=== PATIENT | male | born 1935 | race Caucasian/White ===

== ENCOUNTER 2020-08-05 14:06 | Inpatient (IN) | payer MEDICARE, BC ==
[2020-08-05] MEDS ORDERED: Carvedilol 3.125 MG Tab PO ONE ×2 (14:37→15:44)
--- NOTE | 2020-08-05 14:43 | EDM.PDOC ---
ED HPI GENERAL MEDICAL PROBLEM - General Chief Complaint: Chest Pain Stated Complaint: MEDICAL Time Seen by Provider: 08/05/20 14:25 Source of Information: Reports: Patient, EMS. Denies: Old Records History Limitations: Reports: Other (no old records) - History of Present Illness INITIAL COMMENTS - FREE TEXT/NARRATIVE: 84 yo male with a recent hx of chest pain referred from [facility] to [facility] for 3 vessel CAD. It was decided because of his age to manage him medically. His family doctor is in [place]. He recently ran out of some of the meds that were started in [place] and he can't get an appt for several days yet and his primary won't refill his meds until he is seen. One of the meds he is out of is carvedilol. Since running out of this he has had to use some of his NTG. Sx's include MICHEL, orthopnea, and insomnia from the SOB. These sx's started last evening and are not any worse today, but he decided to use an ambulance to come to [facility] today where he has never been before. Has used some NTG since running out of his Carvedilol. Onset: Gradual Onset Date: 08/04/20 Onset Time: 21:00 Duration: Hour(s):, Constant Location: Reports: Chest Quality: Reports: Other (no pain) Severity: Mild (SOB) Improves with: Reports: Other (rest and sitting up) Worsens with: Reports: Movement (or lying flat) Context: Reports: Other (see HPI) Associated Symptoms: Reports: Shortness of Breath. Denies: Diaphoresis, Nausea/Vomiting Treatments SCENIC DESIGNER: Reports: Other (see below) (none) - Related Data Allergies Allergy/AdvReac Type Severity Reaction Status Date / Time No Known Allergies Allergy Verified 08/05/20 14:21 Home Meds: Home Meds Aspirin 81 mg PO DAILY 08/05/20 [History] Bimatoprost [Lumigan 0.01% Ophth Soln] 1 drop EYEBOTH DAILY 08/05/20 [History] Capsaicin [Zostrix 0.025% Crm] 1 dose TOP ASDIRECTED 08/05/20 [History] Furosemide [Lasix] 20 mg PO DAILY 08/05/20 [History] Hydrocodone/Acetaminophen [Hydrocodon-Acetaminophen 5-325] 1 tab PO ASDIRECTED 08/05/20 [History] Isosorbide Mononitrate [Isosorbide Mononitrate ER] 30 mg PO DAILY 08/05/20 [History] Mirtazapine 15 mg PO BEDTIME 08/05/20 [History] Nitroglycerin 0.4 mg SL ASDIRECTED 08/05/20 [History] Omeprazole 40 mg PO DAILY 08/05/20 [History] Ondansetron [Zofran ODT] 4 mg PO ASDIRECTED 08/05/20 [History] Sennosides/Docusate Sodium [Senna-Docusate Sodium Tablet] 2 tab PO DAILY 08/05/20 [History] Tamsulosin [Flomax] 0.4 mg PO DAILY 08/05/20 [History] Timolol Maleate/PF [Timolol Maleate 0.5% Eye Drop] 1 dose EYEBOTH BEDTIME 08/05/20 [History] atorvaSTATin Calcium [Atorvastatin Calcium] 80 mg PO BEDTIME 08/05/20 [History] carvediloL [Carvedilol] 6.25 mg PO BID 08/05/20 [History] Social & Family History - Tobacco Use Tobacco Use Status *Q: Light Tobacco User Years of Tobacco use: 72 Packs/Tins Daily: 0.5 - Caffeine Use Caffeine Use: Reports: Coffee - Recreational Drug Use Recreational Drug Use: No ED ROS GENERAL - Review of Systems Review Of Systems: See Below Constitutional: Reports: No Symptoms. Denies: Fever, Chills, Diaphoresis HEENT: Reports: No Symptoms Respiratory: Reports: Shortness of Breath. Denies: Wheezing, Pleuritic Chest Pain, Cough, Sputum, Hemoptysis Cardiovascular: Reports: No Symptoms Endocrine: Reports: No Symptoms GI/Abdominal: Reports: No Symptoms : Reports: No Symptoms Musculoskeletal: Reports: No Symptoms Skin: Reports: No Symptoms Neurological: Reports: No Symptoms ED EXAM, GENERAL - Physical Exam Exam: See Below Exam Limited By: No Limitations General Appearance: Alert, WD/WN, No Apparent Distress Eye Exam: Bilateral Eye: Normal Inspection Ears: Normal External Exam, Normal Canal, Hearing Grossly Normal Ear Exam: Bilateral Ear: Auricle Normal, Canal Normal Nose: Normal Inspection, No Blood Throat/Mouth: Normal Inspection, Normal Lips, Normal Oropharynx, Normal Voice, No Airway Compromise Head: Atraumatic, Normocephalic Neck: Normal Inspection Respiratory/Chest: No Respiratory Distress, Lungs Clear, Normal Breath Sounds, No Accessory Muscle Use Cardiovascular: Regular Rate, Rhythm, No Edema, Tachycardia GI/Abdominal: Normal Bowel Sounds, Soft, Non-Tender, No Distention Back Exam: Normal Inspection. No: CVA Tenderness (R), CVA Tenderness (L) Extremities: Normal Inspection, Normal Range of Motion, Non-Tender, No Pedal Edema Neurological: Alert, Oriented, CN II-XII Intact, Normal Cognition, No Motor/Sensory Deficits Psychiatric: Normal Affect, Normal Mood Skin Exam: Warm, Dry, Intact, Normal Color, No Rash, Other (1.1 cm in diameter basal cell CA on R forehead. ) #1 Interpretation EKG Date: 08/05/20 Time: 14:35 Rhythm: NSR Rate (Beats/Min): [address]: Normal P-Wave: Present QRS: Normal ST-T: Normal QT: Normal Comparison: NA - No Prior EKG (PAC's present. LVH present. 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 Goode and Pancho @ 1600h Last Recorded V/S: Last Vital Signs Temp 36.6 C 08/05/20 14:24 Pulse 101 H 08/05/20 15:51 Resp 22 H 08/05/20 14:24 BP 151/99 H 08/05/20 15:51 Pulse Ox 96 08/05/20 14:24 - Orders/Labs/Meds Orders: Active Orders 24 hr Category Date Time Status Cardiac Monitoring [RC] .As Directed Care 08/05/20 14:16 Active EKG Documentation Completion [RC] ASDIRECTED Care 08/05/20 14:16 Active Chest 1V Frontal [CR] Stat Exams 08/05/20 15:41 Ordered Furosemide [Lasix] Med 08/05/20 16:06 Once 40 mg IVPUSH ONETIME ONE EKG 12 Lead [EK] Routine Ther 08/05/20 14:15 Ordered Medication Orders Furosemide (Lasix) 40 mg IVPUSH ONETIME ONE Stop: 08/05/20 16:07 Labs: Laboratory Tests 08/05/20 08/05/20 08/05/20 Range/Units 14:56 14:56 15:40 WBC 7.2 (4.5-11.0) K/uL RBC 3.77 L (4.30-5.90) M/uL Hgb 12.1 (12.0-15.0) g/dL Hct 38.0 L (40.0-54.0) % MCV 101 H (80-98) fL MCH 32 H (27-31) pg MCHC 32 (32-36) % Plt Count 183 (150-400) K/uL Sodium 144 (140-148) mmol/L Potassium 4.1 (3.6-5.2) mmol/L Chloride 108 (100-108) mmol/L Carbon Dioxide 23 (21-32) mmol/L Anion Gap 13.2 (5.0-14.0) mmol/L BUN 32 H (7-18) mg/dL Creatinine 1.1 (0.8-1.3) mg/dL Est Cr Clr Drug Dosing 43.47 mL/min Estimated GFR (MDRD) > 60 (>60) Glucose 104 (74-106) mg/dL Calcium 9.2 (8.5-10.1) mg/dL Troponin I 1.497 H* (0.000-0.056) ng/mL NT-Pro-B Natriuret Pep 88868 H (5-450) pg/mL Meds: Medications Generic Name Dose Route Start Last Admin Trade Name Freq PRN Reason Stop Dose Admin Furosemide 40 mg 08/05/20 16:06 Lasix IVPUSH 08/05/20 16:07 ONETIME ONE Discontinued Medications Generic Name Dose Route Start Last Admin Trade Name Freq PRN Reason Stop Dose Admin Aspirin 243 mg 08/05/20 15:40 08/05/20 15:51 Aspirin PO 08/05/20 15:41 243 mg ONETIME ONE Administration Carvedilol 6.25 mg 08/05/20 14:37 08/05/20 14:53 Coreg PO 08/05/20 14:38 6.25 mg ONETIME ONE Administration Carvedilol 6.25 mg 08/05/20 15:44 08/05/20 15:51 Coreg PO 08/05/20 15:45 6.25 mg ONETIME ONE Administration Heparin Sodium (Porcine) 4,000 units 08/05/20 15:42 08/05/20 15:54 Heparin Sodium IVPUSH 08/05/20 15:43 4,000 units ONETIME ONE Administration Ticagrelor 180 mg 08/05/20 15:43 08/05/20 15:51 Brilinta PO 08/05/20 15:44 180 mg ONETIME ONE Administration - Radiology Interpretation Free Text/Narrative:: CXR- Departure - Departure Time of Disposition: 16:10 Disposition: Admitted As Inpatient 65 Condition: Serious Clinical Impression: Difficulty obtaining medication, Non-STEMI (non-ST elevated myocardial infarction) Referrals: PCP,None [Primary Care Provider] - Forms: ED Department Discharge Sepsis Event Note (ED) - Evaluation Sepsis Screening Result: No Definite Risk - Focused Exam Vital Signs: Vital Signs Temp Pulse Pulse Resp BP BP Pulse Ox 08/05/20 15:51 101 H 151/99 H 08/05/20 14:53 104 H 179/101 H 08/05/20 14:24 36.6 C 115 H 22 H 178/103 H 96 08/05/20 14:20 36.6 C 115 H 22 H 178/103 H 96 - My Orders Last 24 Hours: My Active Orders 08/05/20 14:15 EKG 12 Lead [EK] Routine 08/05/20 14:16 Cardiac Monitoring [RC] .As Directed EKG Documentation Completion [RC] ASDIRECTED 08/05/20 15:41 Chest 1V Frontal [CR] Stat 08/05/20 16:06 Furosemide [Lasix] 40 mg IVPUSH ONETIME ONE - Assessment/Plan Last 24 Hours: My Active Orders 08/05/20 14:15 EKG 12 Lead [EK] Routine 08/05/20 14:16 Cardiac Monitoring [RC] .As Directed EKG Documentation Completion [RC] ASDIRECTED 08/05/20 15:41 Chest 1V Frontal [CR] Stat 08/05/20 16:06 Furosemide [Lasix] 40 mg IVPUSH ONETIME ONE
[2020-08-05] MEDS ORDERED: Aspirin 81 MG Tab.Chew PO ONE (15:40)
[2020-08-05] MEDS ORDERED: Heparin Sodium 5,000 Units/ML Vial IVPUSH ONE (15:42)
[2020-08-05] MEDS ORDERED: Ticagrelor 90 MG Tab PO ONE (15:43)
[2020-08-05] MEDS ORDERED: Furosemide 40 MG/4 ML VIAL IVPUSH ONE (16:06)
--- NOTE | 2020-08-05 17:04 | PCM.HP.2 ---
H&P History of Present Illness - General Date of Service: 08/05/20 Admit Problem/Dx: Admission Diagnosis/Problem Admission Diagnosis/Problem NSTEMI, initial episode of care Source of Information: Patient, Family, Provider History Limitations: Reports: No Limitations - History of Present Illness Initial Comments - Free Text/Narative: CC: my stomach has been hurting HPI: Rikki presents to the ER with epigastric and lower chest pain that has been off and on for the past 2-3 nights. Pain is also present during the day but typically at a lower level. The most intense pain often wakes him up at night. He describes a dull pain that can be quite intense that starts just underneath the sternum and radiates up into the chest slightly and down into the abdomen slightly. He has taken Tami-Moosic which helps slightly. He has taken nitroglycerin on a couple of occasions and this has been more helpful and even eliminated the pain for a while. He has had similar but much less intense pain over the last couple of weeks. He does report dyspnea on exertion with some good days and some bad days. If he takes it easy he does not have much trouble. He has an occasional dry cough. He does not report orthopnea. No change in bowel habits. He has a chronic indwelling catheter and has not had any trouble with this. No lower extremity edema. He does note that he ran out of his carvedilol about 2 weeks ago and things have been going downhill since that time. He was admitted to [facility] in [place] in May and diagnosed with uncorrectable severe three-vessel coronary artery disease, intestinal angina as well as bladder outlet obstruction due to BPH. Work-up in the emergency room has revealed a troponin of 1.[address] depressions. The case was discussed with the on-call dye tub tender at [facility] in [place]. They felt that given his severe disease medical management was the only option. He will be admitted to the intensive care unit for management of an non-ST elevation myocardial infarction. - Related Data Allergies/Adverse Reactions: Allergies Allergy/AdvReac Type Severity Reaction Status Date / Time No Known Allergies Allergy Verified 08/05/20 14:21 Home Medications: Home Meds Aspirin 81 mg PO DAILY 08/05/20 [History] Bimatoprost [Lumigan 0.01% Ophth Soln] 1 drop EYEBOTH DAILY 08/05/20 [History] Capsaicin [Zostrix 0.025% Crm] 1 dose TOP ASDIRECTED 08/05/20 [History] Furosemide [Lasix] 20 mg PO DAILY 08/05/20 [History] Hydrocodone/Acetaminophen [Hydrocodon-Acetaminophen 5-325] 1 tab PO ASDIRECTED 08/05/20 [History] Isosorbide Mononitrate [Isosorbide Mononitrate ER] 30 mg PO DAILY 08/05/20 [History] Mirtazapine 15 mg PO BEDTIME 08/05/20 [History] Nitroglycerin 0.4 mg SL ASDIRECTED 08/05/20 [History] Omeprazole 40 mg PO DAILY 08/05/20 [History] Ondansetron [Zofran ODT] 4 mg PO ASDIRECTED 08/05/20 [History] Sennosides/Docusate Sodium [Senna-Docusate Sodium Tablet] 2 tab PO DAILY 08/05/20 [History] Tamsulosin [Flomax] 0.4 mg PO DAILY 08/05/20 [History] Timolol Maleate/PF [Timolol Maleate 0.5% Eye Drop] 1 dose EYEBOTH BEDTIME 08/05/20 [History] atorvaSTATin Calcium [Atorvastatin Calcium] 80 mg PO BEDTIME 08/05/20 [History] carvediloL [Carvedilol] 6.25 mg PO BID 08/05/20 [History] Past Medical History HEENT History: Reports: Impaired Vision Cardiovascular History: Reports: CAD, Heart Failure, Hypertension, [place] Gastrointestinal History: Reports: GERD Genitourinary History: Reports: BPH, Other (See Below) Other Genitourinary History: Chronic sommer cath Musculoskeletal History: Reports: Fracture, Other (See Below) Other Musculoskeletal History: shoulder dislocation - Past Surgical History HEENT Surgical History: Reports: Tonsillectomy GI Surgical History: Reports: Hernia Repair/Other Social & Family History - Family History Cardiac: Denies: CAD - Tobacco Use Tobacco Use Status *Q: Light Tobacco User Years of Tobacco use: 72 Packs/Tins Daily: 0.5 - Caffeine Use Caffeine Use: Reports: Coffee - Alcohol Use Alcohol Use History: No - Recreational Drug Use Recreational Drug Use: No H&P Review of Systems - Review of Systems: Review Of Systems: See Below Free Text/Narrative: A complete 12 point review of systems was obtained. Pertinent positives and negatives are noted in the history of present illness. All other systems were reviewed and were negative except as noted. Exam - Exam Exam: See Below - Vital Signs Vital Signs: Last Vital Signs Temp 36.6 C 08/05/20 14:24 Pulse 101 H 08/05/20 15:51 Resp 25 H 08/05/20 16:08 BP 148/96 H 08/05/20 16:08 Pulse Ox 98 08/05/20 16:08 Weight: 62.596 kg - Exam Quality Assessment: No: Supplemental Oxygen General: Alert, Oriented, Cooperative. No: Mild Distress HEENT: Conjunctiva Clear. No: Mucosa Moist & [place] (dry), Scleral Icterus Neck: Supple, Trachea Midline Lungs: Normal Respiratory Effort, Crackles (both bases) Cardiovascular: Regular Rhythm, Tachycardia, Systolic Murmur, Gallop/S3 GI/Abdominal Exam: Normal Bowel Sounds, Soft, Non-Tender, No Distention Back Exam: Normal Inspection, Full Range of Motion Extremities: No Pedal Edema. No: Increased Warmth Peripheral Pulses: 1+: Dorsalis Pedis (L), Dorsalis Pedis (R) Skin: Warm, Dry Neuro Extensive - Mental Status: Alert, Oriented x3, Nl Response to Commands Neuro Extensive - Motor, Sensory, Reflexes: No: Dysarthria, Abnormal Motor, Tremor Psychiatric: Alert, Normal Affect - Patient Data Lab Results Last 24 hrs: Laboratory Results - last 24 hr 08/05/20 08/05/20 08/05/20 Range/Units 14:56 14:56 15:40 WBC 7.2 (4.5-11.0) K/uL RBC 3.77 L (4.30-5.90) M/uL Hgb 12.1 (12.0-15.0) g/dL Hct 38.0 L (40.0-54.0) % MCV 101 H (80-98) fL MCH 32 H (27-31) pg MCHC 32 (32-36) % Plt Count 183 (150-400) K/uL Sodium 144 (140-148) mmol/L Potassium 4.1 (3.6-5.2) mmol/L Chloride 108 (100-108) mmol/L Carbon Dioxide 23 (21-32) mmol/L Anion Gap 13.2 (5.0-14.0) mmol/L BUN 32 H (7-18) mg/dL Creatinine 1.1 (0.8-1.3) mg/dL Est Cr Clr Drug Dosing 43.47 mL/min Estimated GFR (MDRD) > 60 (>60) Glucose 104 (74-106) mg/dL Calcium 9.2 (8.5-10.1) mg/dL Troponin I 1.497 H* (0.000-0.056) ng/mL NT-Pro-B Natriuret Pep 50430 H (5-450) pg/mL Result Diagrams: 08/05/20 15:40 08/05/20 14:56 Imaging Impressions Last 24 hrs: CXR-images personally reviewed-lungs clear with no mass, infiltrate or effusion. heart size normal. #1 Interpretation EKG Date: 08/05/20 Rhythm: Other (sinus tachycardia) Rate (Beats/Min): 116 [place]: LAD-Left [place] Deviation (LAFB) P-Wave: Present QRS: Normal ST-T: Depressed (V4-V6) QT: Normal Comparison: NA - No Prior EKG EKG Interpretation Comments: image personally reviewed Sepsis Event Note - Evaluation Sepsis Screening Result: No Definite Risk - Focused Exam Vital Signs: Vital Signs Temp Pulse Pulse Resp BP BP Pulse Ox 08/05/20 16:08 25 H 148/96 H 98 08/05/20 15:51 101 H 151/99 H 08/05/20 14:53 104 H 179/101 H 08/05/20 14:24 36.6 C 115 H 22 H 178/103 H 96 08/05/20 14:20 36.6 C 115 H 22 H 178/103 H 96 *Q Meaningful Use (ADM) - VTE Risk Assess *Q Each Risk Factor Represents 1 Point: Acute myocardial infarction, Congestive hea rt failure (CHF) Total Score 1 Point Risk Factors: 2 Each Risk Factor Represents 2 Points: None Total Score 2 Point Risk Factors: 0 Each Risk Factor Represents 3 Points: Age 75 Years or Greater Total Score 3 Point Risk Factors: 3 Each Risk Factor Represents 5 Points: None Total Score 5 Point Risk Factors: 0 Venous Thromboembolism Risk Factor Score *Q: 5 - Problem List (1) Non-STEMI (non-ST elevated myocardial infarction) SNOMED Code(s): 94855395 ICD Code: I21.4 - NON-ST ELEVATION (NSTEMI) MYOCARDIAL INFARCTION Status: Acute Current Visit: Yes (2) Systolic congestive heart failure SNOMED Code(s): 14641724, 950563942 ICD Code: I50.20 - UNSPECIFIED SYSTOLIC (CONGESTIVE) HEART FAILURE Status: Chronic Current Visit: Yes Qualifiers: Heart failure chronicity: chronic Qualified Code(s): I50.22 - Chronic systolic (congestive) heart failure (3) Intestinal angina SNOMED Code(s): 560055315 ICD Code: K55.1 - CHRONIC VASCULAR DISORDERS OF INTESTINE Status: Chronic Current Visit: Yes (4) BPH with urinary obstruction SNOMED Code(s): 522940220 ICD Code: N40.1 - BENIGN PROSTATIC HYPERPLASIA WITH LOWER URINARY TRACT SYMP; N13.8 - OTHER OBSTRUCTIVE AND REFLUX UROPATHY Status: Chronic Current Visit: Yes (5) 3-vessel coronary artery disease Status: Chronic Current Visit: Yes Problem Details: uncorrectable 3 vessel disease (occluded RCA, 80% prox LAD, 99% circumflex and 90% M2) Problem List Initiated/Reviewed/Updated: Yes Orders Last 24hrs: Active Orders 24 hr Category Date Time Status Patient Status Manage Transfer [TRANSFER] Routine ADT 08/05/20 16:49 Ordered Cardiac Monitoring [RC] .As Directed Care 08/05/20 14:16 Active EKG Documentation Completion [RC] ASDIRECTED Care 08/05/20 14:16 Active Chest 1V Frontal [CR] Stat Exams 08/05/20 15:41 Taken Resuscitation Status Routine Resus Stat 08/05/20 16:52 Ordered EKG 12 Lead [EK] Routine Ther 08/05/20 14:15 Ordered Assessment/Plan Comment:: ASSESSMENT AND PLAN - Non-ST elevation myocardial infarction-this occurs in the setting of severe three-vessel coronary artery disease with a completely occluded RCA, 80% occluded proximal LAD and a 99% circumflex occlusion. He was too high risk for PCI or CABG. Discussed with on-call dye tub tender and medical management rec ommended. He has received aspirin, 12.5 mg of carvedilol. -Heparin bolus followed by heparin infusion for 24 to 48 hours -Continue aspirin high-dose atorvastatin -Start clopidogrel in the morning -Continue beta-halima, consider dose increase if needed -Continue Imdur, consider dose increase -Consider lisinopril if blood pressure will allow Systolic congestive heart failure-chronic, stable at this time. BNP is quite elevated but volume status appears appropriate based on examination. He did receive furosemide in the emergency room but I do not believe he needs additional diuretics at this time. -Continue medical management including beta-halima, aspirin and statin -Consider YESSY inhibitor Intestinal angina-suspected flow-limiting lesions noted on CT angiogram in [place] back in May. Symptoms wax and wane. -Small more frequent meals -Additional medical management as above BPH with bladder outlet obstruction-has chronic indwelling catheter. Maintenance issues - - DVT prophylaxis -heparin - GI prophylaxis -PPI - Nutrition -low-sodium - Sommer catheter -chronic indwelling Sommer CODE STATUS -DNR/DNI Admission justification -this patient will be admitted for inpatient services and is medically appropriate meeting medical necessity for inpatient admission as outlined in my documentation. I reasonably expect the patient will require inpatient services that span a period time over 2 midnights. I reasonably expect this patient to be discharged or transferred within 96 hours [facility]. Disposition -I would anticipate discharge with home care Primary care physician -Dr. Fabrizio Goode M.D. - Mortality Measure Prognosis:: Poor
[2020-08-05] MEDS ORDERED: Magnesium Hydroxide 400 MG/5 ML Susp 30 ML Cup PO PRN (17:15)
[2020-08-05] MEDS ORDERED: Morphine 2 MG/ML SYRINGE IVPUSH PRN (17:15)
[2020-08-05] MEDS ORDERED: LORazepam 2 MG/ML SDV IVPUSH PRN (17:15)
[2020-08-05] MEDS ORDERED: Ondansetron 4 MG Tab.DIS PO PRN (17:15)
[2020-08-05] MEDS ORDERED: Sodium Chloride 0.9% 1,000 ML IV SCH (17:15)
[2020-08-05] MEDS ORDERED: Acetaminophen/HYDROcodone 325-5 MG Tab PO PRN (17:15)
[2020-08-05] MEDS ORDERED: Acetaminophen 325 MG Tab PO PRN (17:15)
[2020-08-05] MEDS ORDERED: Ondansetron 4 MG/2 ML SDV IV PRN (17:15)
[2020-08-05] MEDS: Heparin Sodium/D5W 25,000 UNITS/500 ML BAG IV SCH (17:33)
[2020-08-05] MEDS: atorvaSTATin 20 MG Tab PO SCH (20:09)
[2020-08-05] MEDS: Mirtazapine 15 MG Tab PO SCH (20:10)
[2020-08-05] MEDS: Latanoprost 0.005% Ophth Soln 2.5 ML Bottle EYEBOTH SCH (20:11)
[2020-08-05] MEDS ORDERED: TIMOLOL MALEATE EYEBOTH SCH (21:00)
[2020-08-05] MEDS ORDERED: Non-Formulary Medication 1 Each (Atorvastatin Calcium [Atorvastatin Calcium] 80 MG) PO SCH (21:00)
[2020-08-05] MEDS ORDERED: [UNRECOGNIZED DRUG - OTHER] EYEBOTH SCH (21:00)
[2020-08-06] MEDS ORDERED: CARVEDILOL 6.25 MG PO SCH (07:30)
[2020-08-06] MEDS ORDERED: Carvedilol 3.125 MG Tab PO SCH (07:30)
[2020-08-06] MEDS: Pantoprazole 40 MG Tab.CR PO SCH (07:47)
[2020-08-06] MEDS ORDERED: Potassium Chloride 20 MEQ Tab.ER PO ONE (08:15)
[2020-08-06] MEDS ORDERED: Carvedilol 3.125 MG Tab PO ONE (08:15)
[2020-08-06] MEDS: Clopidogrel 75 MG Tab PO SCH (08:36)
[2020-08-06] MEDS: Isosorbide Mononitrate 30 MG Tab.ER PO SCH (08:36)
[2020-08-06] MEDS: Furosemide 20 MG Tab PO SCH (08:36)
[2020-08-06] MEDS: Tamsulosin 0.4 MG Cap.ER PO SCH (08:36)
[2020-08-06] MEDS: Aspirin 81 MG Tab.Chew PO SCH (08:36)
[2020-08-06] MEDS: Timolol Maleate 0.5% Ophth Soln 5 ML Bottle EYEBOTH SCH (08:37)
[2020-08-06] MEDS ORDERED: Non-Formulary Medication 1 Each (Bimatoprost [Lumigan 0.01% Ophth Soln] 1 DROP) EYEBOTH SCH (09:00)
[2020-08-06] MEDS ORDERED: Haloperidol 5 MG Tab PO PRN (10:55)
--- NOTE | 2020-08-06 10:57 | PCM.PN ---
- General Info Date of Service: 08/06/20 Subjective Update: The patient had difficulty with confusion overnight. He did receive 1 dose of lorazepam and has done well since that time. His blood pressure and heart rate have trended down overnight. Troponin level has trended down as well. He reports very mild discomfort in the epigastric area today which is improved. He did have a mild increase in abdominal pain after breakfast. Oxygenation has been good but he does report that he feels more short of breath today. Tolerating blood thinner so far. Kidney function stable. Functional Status: Reports: Pain Controlled, Tolerating Diet - Review of Systems General: Denies: Fever Pulmonary: Reports: Shortness of Breath Gastrointestinal: Reports: Abdominal Pain (mild) - Patient Data Vitals - Most Recent: Last Vital Signs Temp 36.6 C 08/06/20 08:00 Pulse 93 08/06/20 08:35 Resp 23 H 08/06/20 08:00 BP 157/100 H 08/06/20 08:36 Pulse Ox 95 08/06/20 08:00 Weight - Most Recent: 60.781 kg I&O - Last 24 Hours: Intake & Output 08/05/20 08/06/20 08/06/20 22:59 06:59 14:59 Intake Total 120 240 Output Total 2450 250 Balance -2450 -130 240 Lab Results Last 24 Hours: Laboratory Results - last 24 hr 08/05/20 08/05/20 08/05/20 Range/Units 14:56 14:56 15:40 WBC 7.2 (4.5-11.0) K/uL RBC 3.77 L (4.30-5.90) M/uL Hgb 12.1 (12.0-15.0) g/dL Hct 38.0 L (40.0-54.0) % MCV 101 H (80-98) fL MCH 32 H (27-31) pg MCHC 32 (32-36) % Plt Count 183 (150-400) K/uL APTT (27.0-36.0) sec Sodium 144 (140-148) mmol/L Potassium 4.1 (3.6-5.2) mmol/L Chloride 108 (100-108) mmol/L Carbon Dioxide 23 (21-32) mmol/L Anion Gap 13.2 (5.0-14.0) mmol/L BUN 32 H (7-18) mg/dL Creatinine 1.1 (0.8-1.3) mg/dL Est Cr Clr Drug Dosing 43.47 mL/min Estimated GFR (MDRD) > 60 (>60) Glucose 104 (74-106) mg/dL Calcium 9.2 (8.5-10.1) mg/dL Magnesium (1.8-2.4) mg/dL Troponin I 1.497 H* (0.000-0.056) ng/mL NT-Pro-B Natriuret Pep 67546 H (5-450) pg/mL 08/05/20 08/05/20 08/06/20 Range/Units 17:15 20:02 00:30 WBC (4.5-11.0) K/uL RBC (4.30-5.90) M/uL Hgb (12.0-15.0) g/dL Hct (40.0-54.0) % MCV (80-98) fL MCH (27-31) pg MCHC (32-36) % Plt Count (150-400) K/uL APTT 40.8 H 28.8 (27.0-36.0) sec Sodium (140-148) mmol/L Potassium (3.6-5.2) mmol/L Chloride (100-108) mmol/L Carbon Dioxide (21-32) mmol/L Anion Gap (5.0-14.0) mmol/L BUN (7-18) mg/dL Creatinine (0.8-1.3) mg/dL Est Cr Clr Drug Dosing mL/min Estimated GFR (MDRD) (>60) Glucose (74-106) mg/dL Calcium (8.5-10.1) mg/dL Magnesium (1.8-2.4) mg/dL Troponin I 1.431 H* (0.000-0.056) ng/mL NT-Pro-B Natriuret Pep (5-450) pg/mL 08/06/20 08/06/20 08/06/20 Range/Units 05:53 05:53 05:53 WBC 8.3 (4.5-11.0) K/uL RBC 4.08 L (4.30-5.90) M/uL Hgb 13.6 (12.0-15.0) g/dL Hct 40.5 (40.0-54.0) % MCV 99 H (80-98) fL MCH 33 H (27-31) pg MCHC 34 (32-36) % Plt Count 176 (150-400) K/uL APTT (27.0-36.0) sec Sodium 142 (140-148) mmol/L Potassium 3.5 L (3.6-5.2) mmol/L Chloride 105 (100-108) mmol/L Carbon Dioxide 23 (21-32) mmol/L Anion Gap 17.5 H (5.0-14.0) mmol/L BUN 29 H (7-18) mg/dL Creatinine 1.1 (0.8-1.3) mg/dL Est Cr Clr Drug Dosing 42.21 mL/min Estimated GFR (MDRD) > 60 (>60) Glucose 103 (74-106) mg/dL Calcium 9.3 (8.5-10.1) mg/dL Magnesium 1.8 (1.8-2.4) mg/dL Troponin I 1.297 H* (0.000-0.056) ng/mL NT-Pro-B Natriuret Pep (5-450) pg/mL 08/06/20 Range/Units 05:53 WBC (4.5-11.0) K/uL RBC (4.30-5.90) M/uL Hgb (12.0-15.0) g/dL Hct (40.0-54.0) % MCV (80-98) fL MCH (27-31) pg MCHC (32-36) % Plt Count (150-400) K/uL APTT 26.6 L (27.0-36.0) sec Sodium (140-148) mmol/L Potassium (3.6-5.2) mmol/L Chloride (100-108) mmol/L Carbon Dioxide (21-32) mmol/L Anion Gap (5.0-14.0) mmol/L BUN (7-18) mg/dL Creatinine (0.8-1.3) mg/dL Est Cr Clr Drug Dosing mL/min Estimated GFR (MDRD) (>60) Glucose (74-106) mg/dL Calcium (8.5-10.1) mg/dL Magnesium (1.8-2.4) mg/dL Troponin I (0.000-0.056) ng/mL NT-Pro-B Natriuret Pep (5-450) pg/mL Med Orders - Current: Current Medications Acetaminophen (Tylenol) 650 mg PO Q4H PRN PRN Reason: Pain (Mild 1-3)/fever Hydrocodone Bitart/Acetaminophen ([place] 325-5 Mg) 1 tab PO Q4H PRN PRN Reason: Pain Aspirin (Aspirin) 81 mg PO DAILY [facility] Last Admin: 08/06/20 08:36 Dose: 81 mg Documented by: Atorvastatin Calcium (Lipitor) 80 mg PO BEDTIME [facility] Last Admin: 08/05/20 20:09 Dose: 80 mg Documented by: Carvedilol (Coreg) 12.5 mg PO BIDAC [facility] Clopidogrel Bisulfate (Plavix) 75 mg PO DAILY [facility] Last Admin: 08/06/20 08:36 Dose: 75 mg Documented by: Furosemide (Lasix) 20 mg PO DAILY [facility] Last Admin: 08/06/20 08:36 Dose: 20 mg Documented by: Haloperidol (Haldol) 2.5 mg PO Q4H PRN PRN Reason: Agitation Sodium Chloride (Normal Saline) 1,000 mls @ 25 mls/hr IV ASDIRECTED [facility] Last Admin: 08/05/20 17:38 Dose: 25 mls/hr Documented by: Heparin Sodium/Dextrose (Heparin 25,000 Units In D5w 500 Ml) 25,000 units in 500 mls @ 15.023 mls/hr IV TITRATE [facility]; Protocol Last Titration: 08/06/20 06:34 Dose: 22 units/kg/hr, 27.542 mls/hr Documented by: Isosorbide Mononitrate (Imdur) 30 mg PO DAILY [facility] Last Admin: 08/06/20 08:36 Dose: 30 mg Documented by: Latanoprost (Xalatan 0.005% Ophth Soln) 0 ml EYEBOTH BEDTIME [facility] Last Admin: 08/05/20 20:11 Dose: 1 drop Documented by: Magnesium Hydroxide (Milk Of Magnesia) 30 ml PO Q12H PRN PRN Reason: Constipation Melatonin (Melatonin) 9 mg PO BEDTIME [facility] Mirtazapine (Remeron) 15 mg PO BEDTIME [facility] Last Admin: 08/05/20 20:10 Dose: 15 mg Documented by: Morphine Sulfate (Morphine) 2 mg IVPUSH Q2H PRN PRN Reason: Pain (severe 7-10) Ondansetron HCl (Zofran) 4 mg IV Q6H PRN PRN Reason: Nausea/Vomiting Ondansetron HCl (Zofran Odt) 4 mg PO Q6H PRN PRN Reason: Nausea able to take PO Pantoprazole Sodium (Protonix) 40 mg PO ACBREAKFAST [facility] Last Admin: 08/06/20 07:47 Dose: 40 mg Documented by: Senna/Docusate Sodium (Senna Plus) 2 tab PO DAILY [facility] Last Admin: 08/06/20 08:36 Dose: 2 tab Documented by: Senna/Docusate Sodium (Senna Plus) 1 tab PO BID PRN PRN Reason: Constipation Tamsulosin HCl (Flomax) 0.4 mg PO DAILY [facility] Last Admin: 08/06/20 08:36 Dose: 0.4 mg Documented by: Timolol Maleate (Timoptic 0.5% Ophth Soln) 0 ml EYEBOTH DAILY [facility] Last Admin: 08/06/20 08:37 Dose: 1 drop Documented by: Discontinued Medications Aspirin (Aspirin) 243 mg PO ONETIME ONE Stop: 08/05/20 15:41 Last Admin: 08/05/20 15:51 Dose: 243 mg Documented by: Carvedilol (Coreg) 6.25 mg PO ONETIME ONE Stop: 08/05/20 14:38 Last Admin: 08/05/20 14:53 Dose: 6.25 mg Documented by: Carvedilol (Coreg) 6.25 mg PO ONETIME ONE Stop: 08/05/20 15:45 Last Admin: 08/05/20 15:51 Dose: 6.25 mg Documented by: Carvedilol (Coreg) 6.25 mg PO BIDAC [facility] Last Admin: 08/06/20 08:02 Dose: 6.25 mg Documented by: Carvedilol (Coreg) 6.25 mg PO ONETIME ONE Stop: 08/06/20 08:16 Last Admin: 08/06/20 08:35 Dose: 6.25 mg Documented by: Furosemide (Lasix) 40 mg IVPUSH ONETIME ONE Stop: 08/05/20 16:07 Last Admin: 08/05/20 16:16 Dose: 40 mg Documented by: Heparin Sodium (Porcine) (Heparin Sodium) 4,000 units IVPUSH ONETIME ONE Stop: 08/05/20 15:43 Last Admin: 08/05/20 15:54 Dose: 4,000 units Documented by: Lorazepam (Ativan) 0.5 mg IVPUSH Q4H PRN PRN Reason: Nausea/Vomiting Last Admin: 08/05/20 20:35 Dose: 0.5 mg Documented by: Potassium Chloride (Klor-Con M20) 40 meq PO ONETIME ONE Stop: 08/06/20 08:16 Last Admin: 08/06/20 08:35 Dose: 40 meq Documented by: Ticagrelor (Brilinta) 180 mg PO ONETIME ONE Stop: 08/05/20 15:44 Last Admin: 08/05/20 15:51 Dose: 180 mg Documented by: - Exam Quality Assessment: No: Supplemental Oxygen General: Alert, Oriented, Cooperative, No Acute Distress Neck: No JVD Lungs: Normal Respiratory Effort, Decreased Breath Sounds (mild both bases) Cardiovascular: Regular Rate, Irregular Rhythm, Murmurs GI/Abdominal Exam: Soft, No Distention Extremities: No Pedal Edema. No: Increased Warmth Skin: Warm, Dry Psy/Mental Status: Alert, Normal Affect Sepsis Event Note - Evaluation Sepsis Screening Result: No Definite Risk - Focused Exam Vital Signs: Vital Signs Temp Pulse Pulse Resp BP BP Pulse Ox 08/06/20 08:36 157/100 H 08/06/20 08:35 93 157/100 H 08/06/20 08:02 108 H 158/94 H 08/06/20 08:00 36.6 C 108 H 23 H 158/94 H 95 08/06/20 07:00 96 08/06/20 06:00 36.9 C 111 H 20 148/85 H 96 08/06/20 00:00 95 22 H 96 - Problem List & Annotations (1) Non-STEMI (non-ST elevated myocardial infarction) SNOMED Code(s): 57048164 Code(s): I21.4 - NON-ST ELEVATION (NSTEMI) MYOCARDIAL INFARCTION Status: Acute Current Visit: Yes (2) Systolic congestive heart failure SNOMED Code(s): 03913301, 249360894 Code(s): I50.20 - UNSPECIFIED SYSTOLIC (CONGESTIVE) HEART FAILURE Status: Chronic Current Visit: Yes Qualifiers: Heart failure chronicity: chronic Qualified Code(s): I50.22 - Chronic systolic (congestive) heart failure (3) Intestinal angina SNOMED Code(s): 318873349 Code(s): K55.1 - CHRONIC VASCULAR DISORDERS OF INTESTINE Status: Chronic Current Visit: Yes (4) BPH with urinary obstruction SNOMED Code(s): 566319740 Code(s): N40.1 - BENIGN PROSTATIC HYPERPLASIA WITH LOWER URINARY TRACT SYMP; N13.8 - OTHER OBSTRUCTIVE AND REFLUX UROPATHY Status: Chronic Current Visit: Yes (5) 3-vessel coronary artery disease Status: Chronic Current Visit: Yes Annotation/Comment:: uncorrectable 3 vessel disease (occluded RCA, 80% prox LAD, 99% circumflex and 90% M2) - Problem List Review Problem List Initiated/Reviewed/Updated: Yes - My Orders Last 24 Hours: My Active Orders 08/05/20 16:52 Resuscitation Status Routine 08/05/20 Dinner 2 Gram Sodium Diet [DIET] 08/05/20 17:15 Acetaminophen [TylenoL] 650 mg PO Q4H PRN Acetaminophen/HYDROcodone [[place] 325-5 MG] 1 tab PO Q4H PRN Docusate Sodium/Sennosides [Senna Plus] 1 tab PO BID PRN Heparin Sodium/D5W [Heparin 25,000 Units in D5W 500 ML] 25,000 units in 500 ml IV TITRATE Magnesium Hydroxide [Milk of Magnesia] 30 ml PO Q12H PRN Morphine 2 mg IVPUSH Q2H PRN Ondansetron [Zofran ODT] 4 mg PO Q6H PRN Ondansetron [Zofran] 4 mg IV Q6H PRN Sodium Chloride 0.9% [Normal Saline] 1,000 ml IV ASDIRECTED 08/05/20 17:15 Patient Status [ADT] Routine Cardiac Monitoring [RC] CONTINUOUS Height and Weight [RC] DAILY Intake and Output [RC] QSHIFT Notify Provider Vital Signs [RC] ASDIRECTED Oxygen Therapy [RC] PRN Pulse Oximetry [RC] CONTINUOUS Up With Assistance [RC] ASDIRECTED VTE/DVT Education [RC] Per Unit Routine Vital Signs [RC] Q2HR 08/05/20 21:00 Latanoprost [Xalatan 0.005% Ophth Soln] 0 ml EYEBOTH BEDTIME Mirtazapine [Remeron] 15 mg PO BEDTIME atorvaSTATin [Lipitor] 80 mg PO BEDTIME 08/06/20 07:30 Pantoprazole [ProTONIX] 40 mg PO ACBREAKFAST 08/06/20 09:00 Aspirin 81 mg PO DAILY Clopidogrel [Plavix] 75 mg PO DAILY Docusate Sodium/Sennosides [Senna Plus] 2 tab PO DAILY Furosemide [Lasix] 20 mg PO DAILY Isosorbide Mononitrate [Imdur] 30 mg PO DAILY Tamsulosin [Flomax] 0.4 mg PO DAILY timoloL maleate [Timoptic 0.5% Ophth Soln] 0 ml EYEBOTH DAILY 08/06/20 10:55 haloperidoL [Haldol] 2.5 mg PO Q4H PRN 08/06/20 11:00 PTT,PARTIAL THROMBOPLSTIN TIME [COAG] Q6H 08/06/20 16:30 carvediloL [Coreg] 12.5 mg PO BIDAC 08/06/20 17:00 PTT,PARTIAL THROMBOPLSTIN TIME [COAG] Q6H 08/06/20 21:00 Melatonin 9 mg PO BEDTIME 08/06/20 23:00 PTT,PARTIAL THROMBOPLSTIN TIME [COAG] Q6H 08/07/20 05:00 BASIC METABOLIC PANEL,BMP [CHEM] Timed TROPONIN I [CHEM] Timed - Plan Plan:: ASSESSMENT AND PLAN - Non-ST elevation myocardial infarction-this occurs in the setting of severe three-vessel coronary artery disease with a completely occluded RCA, 80% occluded proximal LAD and a 99% circumflex occlusion. Troponin level trending down. Symptoms have been improving. Heart rate and blood pressure are improving. -Heparin bolus followed by heparin infusion for 24 to 48 hours -Continue aspirin, high-dose atorvastatin -Continue clopidogrel (new medication) -Continue beta-halima with dose increased to 12.5 mg -Continue Imdur, consider dose increase -Consider lisinopril if blood pressure will allow -Recheck troponin in the morning Systolic congestive heart failure-chronic, stable at this time. He does feel short of breath but his volume status appears appropriate with no JVD. -Continue medical management including beta-halima, aspirin and statin -Consider YESSY inhibitor Intestinal angina-suspected flow-limiting lesions noted on CT angiogram in [place] back in May. Symptoms mild today and have improved with improvements in blood pressure and heart rate. 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 Maintenance issues - - DVT prophylaxis -heparin - GI prophylaxis -PPI - Nutrition -low-sodium - Desir catheter -chronic indwelling Desir CODE STATUS -DNR/DNI Admission justification -this patient will be admitted for inpatient services and is medically appropriate meeting medical necessity for inpatient admission as outlined in my documentation. I reasonably expect the patient will require inpatient services that span a period time over 2 midnights. I reasonably expect this patient to be discharged or transferred within 96 hours after admission to the Critical [facility]. Disposition -I would anticipate discharge home with home care Primary care physician -Leonardo Martinez in [place] M.[place].
[2020-08-06] MEDS ORDERED: Heparin Sodium 5,000 Units/ML Vial IVPUSH ONE (11:50)
[2020-08-06] MEDS: Heparin Sodium/D5W 25,000 UNITS/500 ML BAG IV SCH (15:00)
[2020-08-06] MEDS: Carvedilol 12.5 MG Tab PO SCH (16:01)
[2020-08-06] MEDS: Latanoprost 0.005% Ophth Soln 2.5 ML Bottle EYEBOTH SCH (20:19)
[2020-08-06] MEDS: atorvaSTATin 20 MG Tab PO SCH (20:21)
[2020-08-06] MEDS: Mirtazapine 15 MG Tab PO SCH (20:22)
[2020-08-06] MEDS: Melatonin 3 MG Tab PO SCH (20:22)
[2020-08-07] MEDS: Heparin Sodium/D5W 25,000 UNITS/500 ML BAG IV SCH (07:48)
[2020-08-07] MEDS: Carvedilol 12.5 MG Tab PO SCH ×2 (07:52→16:42)
[2020-08-07] MEDS: Pantoprazole 40 MG Tab.CR PO SCH (07:53)
[2020-08-07] MEDS: Isosorbide Mononitrate 30 MG Tab.ER PO SCH (07:59)
[2020-08-07] MEDS: Tamsulosin 0.4 MG Cap.ER PO SCH (07:59)
[2020-08-07] MEDS: Aspirin 81 MG Tab.Chew PO SCH (07:59)
[2020-08-07] MEDS: Furosemide 20 MG Tab PO SCH (07:59)
[2020-08-07] MEDS: Clopidogrel 75 MG Tab PO SCH (08:00)
[2020-08-07] MEDS: Timolol Maleate 0.5% Ophth Soln 5 ML Bottle EYEBOTH SCH (08:00)
[2020-08-07] MEDS ORDERED: Potassium Chloride 20 MEQ Tab.ER PO ONE ×2 (12:40→17:00)
--- NOTE | 2020-08-07 12:41 | PCM.PN ---
- General Info Date of Service: 08/07/20 Subjective Update: Mr. Evans has been stable over the last 24 hours, denies significant chest pain or shortness of breath. Troponin level has improved from admission and he has been hemodynamically stable. Functional Status: Reports: Tolerating Diet, Ambulating, Urinating - Review of Systems General: Reports: Weakness, Fatigue. Denies: Fever, Chills Pulmonary: Reports: No Symptoms Cardiovascular: Reports: No Symptoms Gastrointestinal: Reports: No Symptoms Genitourinary: Reports: No Symptoms - Patient Data Vitals - Most Recent: Last Vital Signs Temp 97.6 F 08/07/20 07:00 Pulse 83 08/07/20 09:28 Resp 18 08/07/20 09:28 BP 104/60 08/07/20 09:28 Pulse Ox 94 L 08/07/20 09:28 Weight - Most Recent: 134 lb I&O - Last 24 Hours: Intake & Output 08/06/20 08/07/20 08/07/20 22:59 06:59 14:59 Intake Total 1507 440 Output Total 200 Balance 1307 440 Lab Results Last 24 Hours: Laboratory Results - last 24 hr 08/06/20 08/06/20 08/07/20 Range/Units 16:52 23:00 05:50 APTT 66.5 H 86.1 H (27.0-36.0) sec Sodium 146 (140-148) mmol/L Potassium 3.3 L (3.6-5.2) mmol/L Chloride 109 H (100-108) mmol/L Carbon Dioxide 24 (21-32) mmol/L Anion Gap 16.3 H (5.0-14.0) mmol/L BUN 35 H (7-18) mg/dL Creatinine 1.3 (0.8-1.3) mg/dL Est Cr Clr Drug Dosing 35.72 mL/min Estimated GFR (MDRD) 52 L (>60) Glucose 97 (74-106) mg/dL Calcium 8.7 (8.5-10.1) mg/dL Troponin I 0.840 H* (0.000-0.056) ng/mL 08/07/20 Range/Units 05:50 APTT 84.8 H (27.0-36.0) sec Sodium (140-148) mmol/L Potassium (3.6-5.2) mmol/L Chloride (100-108) mmol/L Carbon Dioxide (21-32) mmol/L Anion Gap (5.0-14.0) mmol/L BUN (7-18) mg/dL Creatinine (0.8-1.3) mg/dL Est Cr Clr Drug Dosing mL/min Estimated GFR (MDRD) (>60) Glucose (74-106) mg/dL Calcium (8.5-10.1) mg/dL Troponin I (0.000-0.056) ng/mL Med Orders - Current: Current Medications Acetaminophen (Tylenol) 650 mg PO Q4H PRN PRN Reason: Pain (Mild 1-3)/fever Hydrocodone Bitart/Acetaminophen ([place] 325-5 Mg) 1 tab PO Q4H PRN PRN Reason: Pain Aspirin (Aspirin) 81 mg PO DAILY [facility] Last Admin: 08/07/20 07:59 Dose: 81 mg Documented by: Atorvastatin Calcium (Lipitor) 80 mg PO BEDTIME [facility] Last Admin: 08/06/20 20:21 Dose: 80 mg Documented by: Carvedilol (Coreg) 12.5 mg PO BIDAC [facility] Last Admin: 08/07/20 07:52 Dose: 12.5 mg Documented by: Clopidogrel Bisulfate (Plavix) 75 mg PO DAILY [facility] Last Admin: 08/07/20 08:00 Dose: 75 mg Documented by: Furosemide (Lasix) 20 mg PO DAILY [facility] Last Admin: 08/07/20 07:59 Dose: 20 mg Documented by: Haloperidol (Haldol) 2.5 mg PO Q4H PRN PRN Reason: Agitation Isosorbide Mononitrate (Imdur) 30 mg PO DAILY [facility] Last Admin: 08/07/20 07:59 Dose: 30 mg Documented by: Latanoprost (Xalatan 0.005% Ophth Soln) 0 ml EYEBOTH BEDTIME [facility] Last Admin: 08/06/20 20:19 Dose: 1 drop Documented by: Magnesium Hydroxide (Milk Of Magnesia) 30 ml PO Q12H PRN PRN Reason: Constipation Melatonin (Melatonin) 9 mg PO BEDTIME [facility] Last Admin: 08/06/20 20:22 Dose: 9 mg Documented by: Mirtazapine (Remeron) 15 mg PO BEDTIME [facility] Last Admin: 08/06/20 20:22 Dose: 15 mg Documented by: Morphine Sulfate (Morphine) 2 mg IVPUSH Q2H PRN PRN Reason: Pain (severe 7-10) Ondansetron HCl (Zofran) 4 mg IV Q6H PRN PRN Reason: Nausea/Vomiting Ondansetron HCl (Zofran Odt) 4 mg PO Q6H PRN PRN Reason: Nausea able to take PO Pantoprazole Sodium (Protonix) 40 mg PO ACBREAKFAST [facility] Last Admin: 08/07/20 07:53 Dose: 40 mg Documented by: Potassium Chloride (Klor-Con M20) 40 meq PO ONETIME ONE Stop: 08/07/20 12:36 Potassium Chloride (Klor-Con M20) 40 meq PO ONETIME ONE Stop: 08/07/20 17:01 Senna/Docusate Sodium (Senna Plus) 2 tab PO DAILY [facility] Last Admin: 08/07/20 07:59 Dose: 2 tab Documented by: Senna/Docusate Sodium (Senna Plus) 1 tab PO BID PRN PRN Reason: Constipation Tamsulosin HCl (Flomax) 0.4 mg PO DAILY [facility] Last Admin: 08/07/20 07:59 Dose: 0.4 mg Documented by: Timolol Maleate (Timoptic 0.5% Ophth Soln) 0 ml EYEBOTH DAILY [facility] Last Admin: 08/07/20 08:00 Dose: 1 drop Documented by: Discontinued Medications Aspirin (Aspirin) 243 mg PO ONETIME ONE Stop: 08/05/20 15:41 Last Admin: 08/05/20 15:51 Dose: 243 mg Documented by: Carvedilol (Coreg) 6.25 mg PO ONETIME ONE Stop: 08/05/20 14:38 Last Admin: 08/05/20 14:53 Dose: 6.25 mg Documented by: Carvedilol (Coreg) 6.25 mg PO ONETIME ONE Stop: 08/05/20 15:45 Last Admin: 08/05/20 15:51 Dose: 6.25 mg Documented by: Carvedilol (Coreg) 6.25 mg PO BIDAC [facility] Last Admin: 08/06/20 08:02 Dose: 6.25 mg Documented by: Carvedilol (Coreg) 6.25 mg PO ONETIME ONE Stop: 08/06/20 08:16 Last Admin: 08/06/20 08:35 Dose: 6.25 mg Documented by: Furosemide (Lasix) 40 mg IVPUSH ONETIME ONE Stop: 08/05/20 16:07 Last Admin: 08/05/20 16:16 Dose: 40 mg Documented by: Heparin Sodium (Porcine) (Heparin Sodium) 4,000 units IVPUSH ONETIME ONE Stop: 08/05/20 15:43 Last Admin: 08/05/20 15:54 Dose: 4,000 units Documented by: Heparin Sodium (Porcine) (Heparin Sodium) 1,000 units IVPUSH .BOLUS ONE Stop: 08/06/20 11:51 Last Admin: 08/06/20 11:50 Dose: 1,000 units Documented by: Sodium Chloride (Normal Saline) 1,000 mls @ 25 mls/hr IV ASDIRECTED [facility] Last Admin: 08/05/20 17:38 Dose: 25 mls/hr Documented by: Heparin Sodium/Dextrose (Heparin 25,000 Units In D5w 500 Ml) 25,000 units in 500 mls @ 15.023 mls/hr IV TITRATE [facility]; Protocol Last Admin: 08/07/20 07:48 Dose: 20 units/kg/hr, 25.038 mls/hr Documented by: Lorazepam (Ativan) 0.5 mg IVPUSH Q4H PRN PRN Reason: Nausea/Vomiting Last Admin: 08/05/20 20:35 Dose: 0.5 mg Documented by: Potassium Chloride (Klor-Con M20) 40 meq PO ONETIME ONE Stop: 08/06/20 08:16 Last Admin: 08/06/20 08:35 Dose: 40 meq Documented by: Ticagrelor (Brilinta) 180 mg PO ONETIME ONE Stop: 08/05/20 15:44 Last Admin: 08/05/20 15:51 Dose: 180 mg Documented by: - Exam Quality Assessment: DVT Prophylaxis General: Alert, Oriented, Cooperative, No Acute Distress Lungs: Clear to Auscultation, Normal Respiratory Effort Cardiovascular: Regular Rate, Regular Rhythm, Murmurs GI/Abdominal Exam: Soft, Non-Tender, No Organomegaly, No Distention Extremities: Non-Tender, No Pedal Edema Sepsis Event Note - Evaluation Sepsis Screening Result: No Definite Risk - Focused Exam Vital Signs: Vital Signs Temp Pulse Pulse Resp BP BP Pulse Ox 08/07/20 09:28 83 18 104/60 94 L 08/07/20 08:00 90 16 117/63 08/07/20 07:59 117/63 08/07/20 07:52 94 117/63 08/07/20 07:00 97.6 F 91 21 H 159/52 H 94 L 08/07/20 05:58 89 22 H 08/07/20 04:00 98 21 H 108/70 08/07/20 02:00 99 15 121/60 90 L - Problem List Review Problem List Initiated/Reviewed/Updated: Yes - My Orders Last 24 Hours: My Active Orders 08/07/20 12:35 Potassium Chloride [Klor-Con M20] 40 meq PO ONETIME ONE 08/07/20 12:36 Convert IV to Saline Lock [OM.PC] Routine 08/07/20 17:00 Potassium Chloride [Klor-Con M20] 40 meq PO ONETIME ONE 08/08/20 05:00 TROPONIN I [CHEM] Timed 08/08/20 05:11 POTASSIUM,K [CHEM] AM - Plan Plan:: ASSESSMENT AND PLAN - Non-ST elevation myocardial infarction-this occurs in the setting of severe three-vessel coronary artery disease with a completely occluded RCA, 80% occluded proximal LAD and a 99% circumflex occlusion. Troponin level improved over the last 24 hours, no symptoms of chest pain. -Continue aspirin, high-dose atorvastatin -Continue clopidogrel (new medication) -Continue beta-halima with dose increased to 12.5 mg -Continue Imdur -Consider lisinopril if blood pressure will allow -Recheck troponin in the morning Systolic congestive heart failure-chronic, stable at this time. He does feel short of breath but his volume status appears appropriate with no JVD. -Continue medical management including beta-halima, aspirin and statin -Consider YESSY inhibitor Intestinal angina-suspected flow-limiting lesions noted on CT angiogram in [place] back in May. Symptoms mild today and have improved with improvements in blood pressure and heart rate. 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 Maintenance issues - - DVT prophylaxis -heparin - GI prophylaxis -PPI - Nutrition -low-sodium - Desir catheter -chronic indwelling Desir CODE STATUS -DNR/DNI Admission justification -this patient will be admitted for inpatient services and is medically appropriate meeting medical necessity for inpatient admission as outlined in my documentation. I reasonably expect the patient will require inpatient services that span a period time over 2 midnights. I reasonably expect this patient to be discharged or transferred within 96 hours after admission to the Critical [facility]. Disposition -I would anticipate discharge home with home care Primary care physician -Leonardo Martinez in [place]
[2020-08-07] MEDS ORDERED: Enoxaparin 40 MG/0.4 ML Syringe SUBCUT SCH (18:30)
[2020-08-07] MEDS: Latanoprost 0.005% Ophth Soln 2.5 ML Bottle EYEBOTH SCH (21:11)
[2020-08-07] MEDS: atorvaSTATin 20 MG Tab PO SCH (21:12)
[2020-08-07] MEDS: Melatonin 3 MG Tab PO SCH (21:13)
[2020-08-07] MEDS: Mirtazapine 15 MG Tab PO SCH (21:14)
[2020-08-08] MEDS: Carvedilol 12.5 MG Tab PO SCH (08:04)
[2020-08-08] MEDS: Pantoprazole 40 MG Tab.CR PO SCH (08:05)
--- NOTE | 2020-08-08 09:00 | CR ---
CHEST: Portable 08/05/2020 at 4:07 PM CLINICAL HISTORY:Chest pain COMPARISON:None FINDINGS: The heart is enlarged. Pulmonary vascularity appears cephalized. There is generalized interstitial prominence which is suspect for edema. This is superimposed over some chronic lung field changes. There are no effusions. There are atherosclerotic changes in the aorta. IMPRESSION: Cardiomegaly with some vascular cephalization and interstitial prominence suggest CHF. This is superimposed over some chronic lung changes.
[2020-08-08] MEDS: Tamsulosin 0.4 MG Cap.ER PO SCH (09:11)
[2020-08-08] MEDS: Isosorbide Mononitrate 30 MG Tab.ER PO SCH (09:11)
[2020-08-08] MEDS: Aspirin 81 MG Tab.Chew PO SCH (09:11)
[2020-08-08] MEDS: Furosemide 20 MG Tab PO SCH (09:11)
[2020-08-08] MEDS: Clopidogrel 75 MG Tab PO SCH (09:12)
[2020-08-08] MEDS: Timolol Maleate 0.5% Ophth Soln 5 ML Bottle EYEBOTH SCH (09:12)
--- NOTE | 2020-08-08 10:38 | PCM.DCSUM1 ---
Discharge Summary - Hospital Course Brief History: Mr. Evans is an 84-year-old gentleman who was admitted through the emergency department with chest pain secondary to a non-ST segment elevation myocardial infarction. - Discharge Data Discharge Date: 08/08/20 Discharge Disposition: Home, Self-Care 01 Condition: Fair - Referral to Home Health Primary Care Physician: PCP None - Discharge Diagnosis/Problem(s) (1) Non-STEMI (non-ST elevated myocardial infarction) SNOMED Code(s): 85266997 ICD Code: I21.4 - NON-ST ELEVATION (NSTEMI) MYOCARDIAL INFARCTION Status: Acute Current Visit: Yes (2) Systolic congestive heart failure SNOMED Code(s): 52834250, 159259769 ICD Code: I50.20 - UNSPECIFIED SYSTOLIC (CONGESTIVE) HEART FAILURE Status: Chronic Current Visit: Yes Qualifiers: Heart failure chronicity: chronic Qualified Code(s): I50.22 - Chronic systolic (congestive) heart failure (3) Intestinal angina SNOMED Code(s): 169953830 ICD Code: K55.1 - CHRONIC VASCULAR DISORDERS OF INTESTINE Status: Chronic Current Visit: Yes (4) BPH with urinary obstruction SNOMED Code(s): 520860698 ICD Code: N40.1 - BENIGN PROSTATIC HYPERPLASIA WITH LOWER URINARY TRACT SYMP; N13.8 - OTHER OBSTRUCTIVE AND REFLUX UROPATHY Status: Chronic Current Visit: Yes (5) 3-vessel coronary artery disease Status: Chronic Current Visit: Yes Problem Details: uncorrectable 3 vessel disease (occluded RCA, 80% prox LAD, 99% circumflex and 90% M2) - Patient Summary/Data Hospital Course: Mr. Evans presented to the ER with epigastric and lower chest pain that has been off and on for 2-3 nights. Pain was also present during the day but typically at a lower level. The most intense pain often wakes him up at night. He describes a dull pain that can be quite intense that starts just underneath the sternum and radiates up into the chest slightly and down into the abdomen slightly. He has taken Tami[place] which helps slightly. He has taken nitroglycerin on a couple of occasions and this has been more helpful and even eliminated the pain for a while. He has had similar but much less intense pain over the last couple of weeks. He does report dyspnea on exertion with some good days and some bad days. If he takes it easy he does not have much trouble. He does note that he ran out of his carvedilol about 2 weeks ago and things have been going downhill since that time. He was admitted to [facility] in May and diagnosed with uncorrectable severe three-vessel coronary artery disease, intestinal angina as well as bladder outlet obstruction due to BPH. Work-up in the emergency room has revealed a troponin of 1.[address] depressions. The case was discussed with the on-call fabric coating supervisor at [facility] in [place]. They felt that given his severe disease medical management was the only option. He was admitted to the intensive care unit for management of an non-ST elevation myocardial infarction. On admission he was started on IV heparin and this was continued for 2 days. In addition he was started on Plavix 75 mg daily and his dose of Coreg was increased to 12.5 mg twice daily. Consideration was given for addition of YESSY inhibitor therapy but this was not started during the hospitalization because of lower blood pressures. Troponin level was monitored daily and did gradually improved but was not yet back to baseline by the time of discharge. Prior to discharge he was up and walking about without significant symptoms of chest pain or shortness of breath. Activity will be as tolerated and he will resume his usual diet. Follow-up appointment will be scheduled with primary care provider within 1 week. - Patient Instructions Diet: Low Sodium Activity: As Tolerated Other/Special Instructions: Please schedule follow-up appointment with primary care provider within 1 week. - Discharge Plan *PRESCRIPTION DRUG MONITORING PROGRAM REVIEWED*: Not Applicable *COPY OF PRESCRIPTION DRUG MONITORING REPORT IN PATIENT [place]: Not Applicable Prescriptions/Med Rec: carvediloL [Coreg] 12.5 mg PO BIDAC #60 tablet Clopidogrel [Plavix] 75 mg PO DAILY #30 tablet Home Medications: Home Meds Aspirin 81 mg PO DAILY 08/05/20 [History] Bimatoprost [Lumigan 0.01% Ophth Soln] 1 drop EYEBOTH DAILY 08/05/20 [History] Capsaicin [Zostrix 0.025% Crm] 1 dose TOP ASDIRECTED 08/05/20 [History] Furosemide [Lasix] 20 mg PO DAILY 08/05/20 [History] Hydrocodone/Acetaminophen [Hydrocodon-Acetaminophen 5-325] 1 tab PO ASDIRECTED 08/05/20 [History] Isosorbide Mononitrate [Isosorbide Mononitrate ER] 30 mg PO DAILY 08/05/20 [History] Mirtazapine 15 mg PO BEDTIME 08/05/20 [History] Nitroglycerin 0.4 mg SL ASDIRECTED 08/05/20 [History] Omeprazole 40 mg PO DAILY 08/05/20 [History] Ondansetron [Zofran ODT] 4 mg PO ASDIRECTED 08/05/20 [History] Sennosides/Docusate Sodium [Senna-Docusate Sodium Tablet] 2 tab PO DAILY 08/05/20 [History] Tamsulosin [Flomax] 0.4 mg PO DAILY 08/05/20 [History] Timolol Maleate/PF [Timolol Maleate 0.5% Eye Drop] 1 dose EYEBOTH BEDTIME 08/05/20 [History] atorvaSTATin Calcium [Atorvastatin Calcium] 80 mg PO BEDTIME 08/05/20 [History] Clopidogrel [Plavix] 75 mg PO DAILY #30 tablet 08/08/20 [Rx] carvediloL [Coreg] 12.5 mg PO BIDAC #60 tablet 08/08/20 [Rx] Referrals: Fabrizio Patel NP [Ordering Only Provider] - 08/15/20 9:40 am (Please arrive 15 minutes early to register for your appointment. ) - Discharge Summary/Plan Comment DC Time >30 min.: No - Patient Data Vitals - Most Recent: Last Vital Signs Temp 97.4 F 08/08/20 08:00 Pulse 78 08/08/20 10:00 Resp 25 H 08/08/20 10:00 BP 106/67 08/08/20 10:00 Pulse Ox 97 08/08/20 10:00 Weight - Most Recent: 133 lb 8 oz I&O - Last 24 hours: Intake & Output 08/07/20 08/08/20 08/08/20 22:59 06:59 14:59 Intake Total 856 240 120 Output Total 350 380 Balance 506 -140 120 Lab Results - Last 24 hrs: Laboratory Results - last 24 hr 08/08/20 08/08/20 Range/Units 05:35 05:35 Potassium 4.0 (3.6-5.2) mmol/L Troponin I 0.400 H* (0.000-0.056) ng/mL Med Orders - Current: Current Medications Acetaminophen (Tylenol) 650 mg PO Q4H PRN PRN Reason: Pain (Mild 1-3)/fever Hydrocodone Bitart/Acetaminophen ([place] 325-5 Mg) 1 tab PO Q4H PRN PRN Reason: Pain Aspirin (Aspirin) 81 mg PO DAILY [facility] Last Admin: 08/08/20 09:11 Dose: 81 mg Documented by: Atorvastatin Calcium (Lipitor) 80 mg PO BEDTIME [facility] Last Admin: 08/07/20 21:12 Dose: 80 mg Documented by: Carvedilol (Coreg) 12.5 mg PO BIDAC [facility] Last Admin: 08/08/20 08:04 Dose: 12.5 mg Documented by: Clopidogrel Bisulfate (Plavix) 75 mg PO DAILY [facility] Last Admin: 08/08/20 09:12 Dose: 75 mg Documented by: Enoxaparin Sodium (Lovenox) 40 mg SUBCUT Q24H [facility] Last Admin: 08/07/20 18:23 Dose: 40 mg Documented by: Furosemide (Lasix) 20 mg PO DAILY [facility] Last Admin: 08/08/20 09:11 Dose: 20 mg Documented by: Haloperidol (Haldol) 2.5 mg PO Q4H PRN PRN Reason: Agitation Isosorbide Mononitrate (Imdur) 30 mg PO DAILY [facility] Last Admin: 08/08/20 09:11 Dose: 30 mg Documented by: Latanoprost (Xalatan 0.005% Ophth Soln) 0 ml EYEBOTH BEDTIME [facility] Last Admin: 08/07/20 21:11 Dose: 1 drop Documented by: Magnesium Hydroxide (Milk Of Magnesia) 30 ml PO Q12H PRN PRN Reason: Constipation Melatonin (Melatonin) 9 mg PO BEDTIME [facility] Last Admin: 08/07/20 21:13 Dose: 9 mg Documented by: Mirtazapine (Remeron) 15 mg PO BEDTIME [facility] Last Admin: 08/07/20 21:14 Dose: 15 mg Documented by: Morphine Sulfate (Morphine) 2 mg IVPUSH Q2H PRN PRN Reason: Pain (severe 7-10) Ondansetron HCl (Zofran) 4 mg IV Q6H PRN PRN Reason: Nausea/Vomiting Ondansetron HCl (Zofran Odt) 4 mg PO Q6H PRN PRN Reason: Nausea able to take PO Pantoprazole Sodium (Protonix) 40 mg PO ACBREAKFAST [facility] Last Admin: 08/08/20 08:05 Dose: 40 mg Documented by: Senna/Docusate Sodium (Senna Plus) 2 tab PO DAILY [facility] Last Admin: 08/08/20 09:12 Dose: 2 tab Documented by: Senna/Docusate Sodium (Senna Plus) 1 tab PO BID PRN PRN Reason: Constipation Tamsulosin HCl (Flomax) 0.4 mg PO DAILY [facility] Last Admin: 08/08/20 09:11 Dose: 0.4 mg Documented by: Timolol Maleate (Timoptic 0.5% Ophth Soln) 0 ml EYEBOTH DAILY [facility] Last Admin: 08/08/20 09:12 Dose: 1 drop Documented by: Discontinued Medications Aspirin (Aspirin) 243 mg PO ONETIME ONE Stop: 08/05/20 15:41 Last Admin: 08/05/20 15:51 Dose: 243 mg Documented by: Carvedilol (Coreg) 6.25 mg PO ONETIME ONE Stop: 08/05/20 14:38 Last Admin: 08/05/20 14:53 Dose: 6.25 mg Documented by: Carvedilol (Coreg) 6.25 mg PO ONETIME ONE Stop: 08/05/20 15:45 Last Admin: 08/05/20 15:51 Dose: 6.25 mg Documented by: Carvedilol (Coreg) 6.25 mg PO BIDAC [facility] Last Admin: 08/06/20 08:02 Dose: 6.25 mg Documented by: Carvedilol (Coreg) 6.25 mg PO ONETIME ONE Stop: 08/06/20 08:16 Last Admin: 08/06/20 08:35 Dose: 6.25 mg Documented by: Furosemide (Lasix) 40 mg IVPUSH ONETIME ONE Stop: 08/05/20 16:07 Last Admin: 08/05/20 16:16 Dose: 40 mg Documented by: Heparin Sodium (Porcine) (Heparin Sodium) 4,000 units IVPUSH ONETIME ONE Stop: 08/05/20 15:43 Last Admin: 08/05/20 15:54 Dose: 4,000 units Documented by: Heparin Sodium (Porcine) (Heparin Sodium) 1,000 units IVPUSH .BOLUS ONE Stop: 08/06/20 11:51 Last Admin: 08/06/20 11:50 Dose: 1,000 units Documented by: Sodium Chloride (Normal Saline) 1,000 mls @ 25 mls/hr IV ASDIRECTED ANUJ Last Admin: 08/05/20 17:38 Dose: 25 mls/hr Documented by: Heparin Sodium/Dextrose (Heparin 25,000 Units In D5w 500 Ml) 25,000 units in 500 mls @ 15.023 mls/hr IV TITRATE ANUJ; Protocol Last Titration: 08/07/20 17:04 Dose: 0 units/kg/hr, 0 mls/hr Documented by: Lorazepam (Ativan) 0.5 mg IVPUSH Q4H PRN PRN Reason: Nausea/Vomiting Last Admin: 08/05/20 20:35 Dose: 0.5 mg Documented by: Potassium Chloride (Klor-Con M20) 40 meq PO ONETIME ONE Stop: 08/06/20 08:16 Last Admin: 08/06/20 08:35 Dose: 40 meq Documented by: Potassium Chloride (Klor-Con M20) 40 meq PO ONETIME ONE Stop: 08/07/20 12:41 Last Admin: 08/07/20 13:30 Dose: 40 meq Documented by: Potassium Chloride (Klor-Con M20) 40 meq PO ONETIME ONE Stop: 08/07/20 17:01 Last Admin: 08/07/20 17:03 Dose: 40 meq Documented by: Ticagrelor (Brilinta) 180 mg PO ONETIME ONE Stop: 08/05/20 15:44 Last Admin: 08/05/20 15:51 Dose: 180 mg Documented by: - Exam General: Reports: Alert, Oriented, Cooperative, No Acute Distress Lungs: Reports: Clear to Auscultation, Normal Respiratory Effort Cardiovascular: Reports: Regular Rate, Regular Rhythm, No Murmurs GI/Abdominal Exam: Soft, Non-Tender, No Organomegaly, No Distention Extremities: Non-Tender, No Pedal Edema
== END 2020-08-08 12:15 | disposition home or self-care (01) | DRG 281 ==
LOC: JP.ED 14:06 → JP.ICU 16:49
PROVIDERS: ADMIT Internal Medicine; ATTEND Internal Medicine
DX: I21.4 Non-ST elevation (NSTEMI) myocardial infarction (principal); Z91.14 Patient's other noncompliance with medication regimen; F17.200 Nicotine dependence, unspecified, uncomplicated; I50.22 Chronic systolic (congestive) heart failure; K55.1 Chronic vascular disorders of intestine; N13.8 Other obstructive and reflux uropathy; Z66 Do not resuscitate; N40.1 Benign prostatic hyperplasia with lower urinary tract symptoms; I25.10 Atherosclerotic heart disease of native coronary artery without angina pectoris; H54.7 Unspecified visual loss; I11.0 Hypertensive heart disease with heart failure; I50.9 Heart failure, unspecified; K21.9 Gastro-esophageal reflux disease without esophagitis; F17.210 Nicotine dependence, cigarettes, uncomplicated; Z96.0 Presence of urogenital implants; Z90.89 Acquired absence of other organs; Z98.890 Other specified postprocedural states; Z79.82 Long term (current) use of aspirin; Z79.899 Other long term (current) drug therapy; Z79.02 Long term (current) use of antithrombotics/antiplatelets
CPT/HCPCS: 36415; 71045 ×2; 80048; 83880; 84484; 85027; 93005; 96374; 96375; 99285; A9270 ×4; J1644; J1940; 83735; 84132; 85730; 93010; J1650; J2060; J7030

== ENCOUNTER 2020-11-09 13:50 | Inpatient (IN) | payer MEDICARE, BC ==
[2020-11-09] MEDS ORDERED: Sodium Chloride 0.9% 10 ML Syringe FLUSH PRN (14:02)
[2020-11-09] MEDS ORDERED: Acetaminophen 325 MG Tab PO ONE (14:07)
[2020-11-09] MEDS ORDERED: Lactated Ringers 1,000 ML IV ONE (14:08)
--- NOTE | 2020-11-09 14:14 | EDM.PDOC ---
ED HPI GENERAL MEDICAL PROBLEM - General Chief Complaint: Possible Sepsis Stated Complaint: WEAKNESS, CHILLS, SOB VIA [place]TH Time Seen by Provider: 11/09/20 14:00 Source of Information: Reports: Patient, Old Records History Limitations: Reports: No Limitations - History of Present Illness INITIAL COMMENTS - FREE TEXT/NARRATIVE: 84 yo male who lives with one of his children presents with fever and weakness since yesterday. He has had a little bit of a cough. He does not report SOB. He has an indwelling sommer catheter and some mild lower abdominal pain. He has not eaten or drank anything today. He arrives via EMS. No self tx. No LIU. Apparently, patient was in [place] ER yesterday for a plugged sommer and had a catheter change and antibiotics(?). Patient failed to tell me any of this during my interview with him. Per records from [facility], he got TMP/SMZ yesterday and is still on it. Had loose stools at home and one emesis. Onset: Gradual Onset Date: 11/08/20 Duration: Day(s): (1+), Getting Worse Location: Reports: Abdomen, Generalized Quality: Reports: Ache (low abdominal) Severity: Moderate Improves with: Reports: None Worsens with: Reports: Other (time) Context: Reports: Other (See HPI) Associated Symptoms: Reports: Cough (mild), Fever/Chills, Malaise, Weakness (generalized). Denies: Headaches, Nausea/Vomiting, Shortness of Breath Treatments [employer]EST[employer]: Reports: Other (see below) (none) - Related Data Allergies Allergy/AdvReac Type Severity Reaction Status Date / Time No Known Allergies Allergy Verified 11/09/20 15:01 Home Meds: Home Meds Aspirin 81 mg PO DAILY 08/05/20 [History] Bimatoprost [Lumigan 0.01% Ophth Soln] 1 drop EYEBOTH DAILY 08/05/20 [History] Capsaicin [Zostrix 0.025% Crm] 1 dose TOP ASDIRECTED 08/05/20 [History] Furosemide [Lasix] 20 mg PO DAILY 08/05/20 [History] Hydrocodone/Acetaminophen [Hydrocodon-Acetaminophen 5-325] 1 tab PO ASDIRECTED PRN 08/05/20 [History] Nitroglycerin 0.4 mg SL ASDIRECTED 08/05/20 [History] Omeprazole 40 mg PO DAILY 08/05/20 [History] Ondansetron [Zofran ODT] 4 mg PO ASDIRECTED PRN 08/05/20 [History] Sennosides/Docusate Sodium [Senna-Docusate Sodium Tablet] 2 tab PO DAILY 08/05/20 [History] Timolol Maleate/PF [Timolol Maleate 0.5% Eye Drop] 1 dose EYEBOTH BEDTIME 08/05/20 [History] Clopidogrel [Plavix] 75 mg PO DAILY #30 tablet 08/08/20 [Rx] Isosorbide Mononitrate [Isosorbide Mononitrate ER] 30 mg PO DAILY #30 08/08/20 [Rx] Mirtazapine 15 mg PO BEDTIME #30 08/08/20 [Rx] Tamsulosin [Flomax] 0.4 mg PO DAILY #30 08/08/20 [Rx] atorvaSTATin Calcium [Atorvastatin Calcium] 80 mg PO BEDTIME #30 08/08/20 [Rx] carvediloL [Coreg] 12.5 mg PO BIDAC #60 tablet 08/08/20 [Rx] Sulfamethoxazole/Trimethoprim [Bactrim Ds Tablet] 1 each PO DAILY 11/09/20 [History] Past Medical History HEENT History: Reports: Impaired Vision Cardiovascular History: Reports: CAD, Heart Failure, Hypertension, [place] Gastrointestinal History: Reports: GERD Genitourinary History: Reports: BPH, Other (See Below) Other Genitourinary History: Chronic sommer cath Musculoskeletal History: Reports: Fracture, Other (See Below) Other Musculoskeletal History: shoulder dislocation - Past Surgical History HEENT Surgical History: Reports: Tonsillectomy GI Surgical History: Reports: Hernia Repair/Other Social & Family History - Caffeine Use Caffeine Use: Reports: Coffee ED ROS GENERAL - Review of Systems Review Of Systems: See Below Constitutional: Reports: Fever, Chills, Malaise, Weakness HEENT: Reports: No Symptoms Respiratory: Reports: Cough. Denies: Shortness of Breath, Wheezing, Pleuritic Chest Pain, Sputum, Hemoptysis Cardiovascular: Reports: No Symptoms Endocrine: Reports: No Symptoms GI/Abdominal: Reports: Abdominal Pain (lower) : Reports: Other (Sommer cath indwelling) Musculoskeletal: Reports: No Symptoms Skin: Reports: No Symptoms Neurological: Reports: No Symptoms ED EXAM, GENERAL - Physical Exam Exam: See Below Exam Limited By: No Limitations General Appearance: Alert, WD/WN, No Apparent Distress, Thin Eye Exam: Bilateral Eye: EOMI, Normal Inspection, PERRL Ears: Normal External Exam, Normal Canal, Hearing Grossly Normal, Normal TMs Ear Exam: Bilateral Ear: Auricle Normal, Canal Normal, TM normal Nose: Normal Inspection, No Blood Throat/Mouth: Normal Inspection, Normal Lips, Normal Oropharynx, Normal Voice, No Airway Compromise, Other (dry oral mucosa) Head: Atraumatic, Normocephalic Neck: Normal Inspection Respiratory/Chest: No Respiratory Distress, Lungs Clear, Normal Breath Sounds, No Accessory Muscle Use Cardiovascular: Regular Rate, Rhythm, No Edema, Tachycardia GI/Abdominal: Normal Bowel Sounds, Soft, Tender (lower abdominal). No: Non- Tender, Distended Back Exam: Normal Inspection Extremities: Normal Inspection, Normal Range of Motion, Non-Tender, No Pedal Edema Neurological: Alert, Oriented, CN II-XII Intact, Normal Cognition, No Motor/Sensory Deficits Psychiatric: Normal Affect, Normal Mood Skin Exam: Warm, Dry, Intact, Normal Color, No Rash Course - Vital Signs Text/Narrative:: Dr. Goode called @ 1555h Last Recorded V/S: Last Vital Signs Temp 37.7 C 11/09/20 15:25 Pulse 104 H 11/09/20 15:51 Resp 19 11/09/20 15:51 BP 115/46 L 11/09/20 15:51 Pulse Ox 92 L 11/09/20 15:51 - Orders/Labs/Meds Orders: Active Orders 24 hr Category Date Time Status COVID-19/FLU A+B/RSV [[facility]] Routine Lab 11/09/20 15:36 Received CULTURE BLOOD [BC] Stat Lab 11/09/20 14:19 Received CULTURE BLOOD [BC] Stat Lab 11/09/20 15:26 Received CULTURE URINE [RM] Stat Lab 11/09/20 15:35 Received Lactated Ringers [Ringers, Lactated] 1,000 ml Med 11/09/20 15:30 Active IV ASDIRECTED Levofloxacin/Dextrose 5%-Water [Levaquin in D5W 750 MG/ Med 11/09/20 15:27 Active 150 ML] 750 mg Premix Bag 1 bag IV ONETIME Sodium Chloride 0.9% [Saline Flush] Med 11/09/20 14:02 Active 10 ml FLUSH ASDIRECTED PRN Medication Orders Levofloxacin/Dextrose 750 mg/ (Premix) 150 mls @ 100 mls/hr IV ONETIME ONE Stop: 11/09/20 16:56 Last Admin: 11/09/20 15:40 Dose: 100 mls/hr Documented by: MATILDA Lactated Ringer's (Ringers, Lactated) 1,000 mls @ 150 mls/hr IV ASDIRECTED ANUJ Last Admin: 11/09/20 15:38 Dose: 150 mls/hr Documented by: MATILDA Sodium Chloride (Sodium Chloride 0.9% 10 Ml Syringe) 10 ml FLUSH ASDIRECTED PRN PRN Reason: Keep Vein Open Last Admin: 11/09/20 14:33 Dose: 10 ml Documented by: MATILDA Labs: Laboratory Tests 11/09/20 11/09/20 11/09/20 Range/Units 14:19 14:19 14:19 WBC 8.4 (4.5-11.0) K/uL RBC 3.68 L (4.30-5.90) M/uL Hgb 11.9 L (12.0-15.0) g/dL Hct 36.2 L (40.0-54.0) % MCV 98 (80-98) fL MCH 32 H (27-31) pg MCHC 33 (32-36) % Plt Count 158 (150-400) K/uL Sodium 141 (140-148) mmol/L Potassium 3.6 (3.6-5.2) mmol/L Chloride 106 (100-108) mmol/L Carbon Dioxide 23 (21-32) mmol/L Anion Gap 11.7 (5.0-14.0) mmol/L BUN 30 H (7-18) mg/dL Creatinine 1.2 (0.8-1.3) mg/dL Est Cr Clr Drug Dosing 31.18 mL/min Estimated GFR (MDRD) 58 L (>60) Glucose 112 H (74-106) mg/dL Lactic Acid 1.9 (0.4-2.0) mmol/L Calcium 9.1 (8.5-10.1) mg/dL Urine Color (YELLOW) Urine Appearance (CLEAR) Urine pH (5.0-8.0) Ur Specific [place] (1.008-1.030) Urine Protein (NEGATIVE) mg/dL Urine Glucose (UA) (NEGATIVE) mg/dL Urine Ketones (NEGATIVE) mg/dL Urine Occult Blood (NEGATIVE) Urine Nitrite (NEGATIVE) Urine Bilirubin (NEGATIVE) Urine Urobilinogen (0.2-1.0) EU/dL Ur Leukocyte Esterase (NEGATIVE) Urine RBC (0-5) Urine WBC (0-5) Ur Epithelial Cells Amorphous Sediment Urine Bacteria Urine Mucus 11/09/20 Range/Units 15:03 WBC (4.5-11.0) K/uL RBC (4.30-5.90) M/uL Hgb (12.0-15.0) g/dL Hct (40.0-54.0) % MCV (80-98) fL MCH (27-31) pg MCHC (32-36) % Plt Count (150-400) K/uL Sodium (140-148) mmol/L Potassium (3.6-5.2) mmol/L Chloride (100-108) mmol/L Carbon Dioxide (21-32) mmol/L Anion Gap (5.0-14.0) mmol/L BUN (7-18) mg/dL Creatinine (0.8-1.3) mg/dL Est Cr Clr Drug Dosing mL/min Estimated GFR (MDRD) (>60) Glucose (74-106) mg/dL Lactic Acid (0.4-2.0) mmol/L Calcium (8.5-10.1) mg/dL Urine Color Yellow (YELLOW) Urine Appearance Clear (CLEAR) Urine pH 5.5 (5.0-8.0) Ur Specific [place] >= 1.030 (1.008-1.030) Urine Protein 100 H (NEGATIVE) mg/dL Urine Glucose (UA) Negative (NEGATIVE) mg/dL Urine Ketones Negative (NEGATIVE) mg/dL Urine Occult Blood Moderate H (NEGATIVE) Urine Nitrite Negative (NEGATIVE) Urine Bilirubin Small H (NEGATIVE) Urine Urobilinogen 0.2 (0.2-1.0) EU/dL Ur Leukocyte Esterase Moderate H (NEGATIVE) Urine RBC Semi-packed H (0-5) Urine WBC 30-40 H (0-5) Ur Epithelial Cells Few Amorphous Sediment Not seen Urine Bacteria Many Urine Mucus Not seen Meds: Medications Generic Name Dose Route Start Last Admin Trade Name Freq PRN Reason Stop Dose Admin Levofloxacin/Dextrose 750 mg/ 150 mls @ 100 mls/hr 11/09/20 15:27 11/09/20 15:40 Premix IV 11/09/20 16:56 100 mls/hr ONETIME ONE Administration Lactated Ringer's 1,000 mls @ 150 mls/hr 11/09/20 15:30 11/09/20 15:38 Ringers, Lactated IV 150 mls/hr ASDIRECTED ANUJ Administration Sodium Chloride 10 ml 11/09/20 14:02 11/09/20 14:33 Sodium Chloride 0.9% 10 Ml Syringe FLUSH 10 ml ASDIRECTED PRN Administration Keep Vein Open Discontinued Medications Generic Name Dose Route Start Last Admin Trade Name Radha PRN Reason Stop Dose Admin Acetaminophen 650 mg 11/09/20 14:07 11/09/20 14:29 Acetaminophen 325 Mg Tab PO 11/09/20 14:08 650 mg NOW ONE Administration Lactated Ringer's 1,000 mls @ 1,000 mls/hr 11/09/20 14:08 11/09/20 14:15 Ringers, Lactated IV 11/09/20 15:07 1,000 mls/hr BOLUS ONE Administration - Radiology Interpretation Free Text/Narrative:: CXR-bilateral infiltrates, possible pneumonitis Departure - Departure Time of Disposition: 15:15 Disposition: Admitted As Inpatient 65 Condition: Fair Clinical Impression: Dehydration Pneumonia Qualifiers: Pneumonia type: due to unspecified organism Laterality: bilateral Lung location: unspecified part of lung Qualified Code(s): J18.9 - Pneumonia, unspecified organism UTI (urinary tract infection) Qualifiers: Urinary tract infection type: site unspecified Hematuria presence: without hematuria Qualified Code(s): N39.0 - Urinary tract infection, site not specified - Discharge Information *PRESCRIPTION DRUG MONITORING PROGRAM REVIEWED*: Not Applicable *COPY OF PRESCRIPTION DRUG MONITORING REPORT IN PATIENT [place]: Not Applicable Referrals: PCP,None [Primary Care Provider] - Forms: ED Department Discharge Sepsis Event Note (ED) - Focused Exam Vital Signs: Vital Signs Temp Temp Pulse Resp BP Pulse Ox 11/09/20 15:51 104 H 19 115/46 L 92 L 11/09/20 15:25 37.7 C 117 H 26 H 131/67 93 L 11/09/20 14:33 38.3 C H 132 H 22 H 154/89 H 96 11/09/20 14:29 38.3 C H 11/09/20 13:54 38.3 C H 132 H 22 H 154/89 H 92 L - My Orders Last 24 Hours: My Active Orders 11/09/20 14:02 Sodium Chloride 0.9% [Saline Flush] 10 ml FLUSH ASDIRECTED PRN 11/09/20 14:19 CULTURE BLOOD [BC] Stat 11/09/20 15:26 CULTURE BLOOD [BC] Stat 11/09/20 15:27 Levofloxacin/Dextrose 5%-Water [Levaquin in D5W 750 MG/150 ML] 750 mg Premix Bag 1 bag IV ONETIME 11/09/20 15:30 Lactated Ringers [Ringers, Lactated] 1,000 ml IV ASDIRECTED 11/09/20 15:35 CULTURE URINE [RM] Stat 11/09/20 15:36 COVID-19/FLU A+B/RSV [[facility]] Routine - Assessment/Plan Last 24 Hours: My Active Orders 11/09/20 14:02 Sodium Chloride 0.9% [Saline Flush] 10 ml FLUSH ASDIRECTED PRN 11/09/20 14:19 CULTURE BLOOD [BC] Stat 11/09/20 15:26 CULTURE BLOOD [BC] Stat 11/09/20 15:27 Levofloxacin/Dextrose 5%-Water [Levaquin in D5W 750 MG/150 ML] 750 mg Premix Bag 1 bag IV ONETIME 11/09/20 15:30 Lactated Ringers [Ringers, Lactated] 1,000 ml IV ASDIRECTED 11/09/20 15:35 CULTURE URINE [RM] Stat 11/09/20 15:36 COVID-19/FLU A+B/RSV [[facility]] Routine
--- NOTE | 2020-11-09 14:49 | CR ---
CHEST: Portable 11/09/2020 2:31 PM CLINICAL HISTORY:Fever, weakness, hypoxia COMPARISON:July 2020 FINDINGS: Lungs are hyperaerated. There is some underlying chronic lung changes. Heart is enlarged. There is ill-defined infiltrate in the midlung [place] bilaterally. There are atherosclerotic changes in the aorta. IMPRESSION: Bilateral infiltrates superimposed over chronic lung changes. This may represent pneumonitis. Cardiomegaly
[2020-11-09] MEDS ORDERED: Levofloxacin/Dextrose 5%-Water 750 MG in Premix Bag 1 BAG IV ONE (15:27)
[2020-11-09] MEDS ORDERED: Lactated Ringers 1,000 ML IV SCH (15:30)
[2020-11-09 16:23] LABS: CORONAVIRUS COVID-19 NAA NEGATIVE (NEGATIVE)
--- NOTE | 2020-11-09 16:29 | PCM.HP.2 ---
H&P History of Present Illness - General Date of Service: 11/09/20 Admit Problem/Dx: Admission Diagnosis/Problem Admission Diagnosis/Problem Bilateral pneumonia Source of Information: Patient, Provider History Limitations: Reports: No Limitations - History of Present Illness Initial Comments - Free Text/Narative: CC: I had a fever and other stuff HPI: Rikki presents to the emergency room with fever, shaking chills as well as abdominal pain, nausea and weakness. He felt a little bit off yesterday with weakness and fatigue but no specific symptoms. He was in the [facility] and had his Sommer catheter changed. Last night in the middle of the night he woke up with fever and shaking chills. He does have a mild cough but does not feel short of breath. He has had some nausea and one episode of vomiting. He reports an episode of severe crampy abdominal pain located near his umbilicus this morning. He did try some Tami-L[place] and this seemed to help with the pa in. There is no obvious trigger to make it worse. He thinks he has been a little more short of breath than usual for the past month but no dramatic changes. No change in bowel habits. No skin rashes. No sore throat, loss of taste or smell. Work-up in the emergency room suggested sepsis with tachycardia and hypoxic respiratory failure. X-ray suggested bilateral pneumonia. Urinalysis suggested infection as well. He has received fluids per sepsis protocol and broad- spectrum antibiotics. He will be admitted for further management. - Related Data Allergies/Adverse Reactions: Allergies Allergy/AdvReac Type Severity Reaction Status Date / Time No Known Allergies Allergy Verified 11/09/20 15:01 Home Medications: Home Meds Aspirin 81 mg PO DAILY 08/05/20 [History] Bimatoprost [Lumigan 0.01% Ophth Soln] 1 drop EYEBOTH DAILY 08/05/20 [History] Capsaicin [Zostrix 0.025% Crm] 1 dose TOP ASDIRECTED 08/05/20 [History] Furosemide [Lasix] 20 mg PO DAILY 08/05/20 [History] Hydrocodone/Acetaminophen [Hydrocodon-Acetaminophen 5-325] 1 tab PO ASDIRECTED PRN 08/05/20 [History] Nitroglycerin 0.4 mg SL ASDIRECTED 08/05/20 [History] Omeprazole 40 mg PO DAILY 08/05/20 [History] Ondansetron [Zofran ODT] 4 mg PO ASDIRECTED PRN 08/05/20 [History] Sennosides/Docusate Sodium [Senna-Docusate Sodium Tablet] 2 tab PO DAILY 08/05/20 [History] Timolol Maleate/PF [Timolol Maleate 0.5% Eye Drop] 1 dose EYEBOTH BEDTIME 08/05/20 [History] Clopidogrel [Plavix] 75 mg PO DAILY #30 tablet 08/08/20 [Rx] Isosorbide Mononitrate [Isosorbide Mononitrate ER] 30 mg PO DAILY #30 08/08/20 [Rx] Mirtazapine 15 mg PO BEDTIME #30 08/08/20 [Rx] Tamsulosin [Flomax] 0.4 mg PO DAILY #30 08/08/20 [Rx] atorvaSTATin Calcium [Atorvastatin Calcium] 80 mg PO BEDTIME #30 08/08/20 [Rx] carvediloL [Coreg] 12.5 mg PO BIDAC #60 tablet 08/08/20 [Rx] Sulfamethoxazole/Trimethoprim [Bactrim Ds Tablet] 1 each PO DAILY 11/09/20 [History] Past Medical History HEENT History: Reports: Impaired Vision Cardiovascular History: Reports: CAD, Heart Failure, Hypertension, [place] Gastrointestinal History: Reports: GERD Genitourinary History: Reports: BPH, Other (See Below) Other Genitourinary History: Chronic sommer cath Musculoskeletal History: Reports: Fracture, Other (See Below) Other Musculoskeletal History: shoulder dislocation - Past Surgical History HEENT Surgical History: Reports: Tonsillectomy GI Surgical History: Reports: Hernia Repair/Other Social & Family History - Family History Cardiac: Denies: CAD - Tobacco Use Tobacco Use Status *Q: Current Every Day Tobacco User Years of Tobacco use: 70 Packs/Tins Daily: 0.5 Second Hand Smoke Exposure: No - Caffeine Use Caffeine Use: Reports: Coffee Other Caffeine Use: 3 cpd - Alcohol Use Alcohol Use History: No - Recreational Drug Use Recreational Drug Use: Yes H&P Review of Systems - Review of Systems: Review Of Systems: See Below Free Text/Narrative: A complete 12 point review of systems was obtained. Pertinent positives and negatives are noted in the history of present illness. All other systems were reviewed and were negative except as noted. Exam - Exam Exam: See Below - Vital Signs Vital Signs: Last Vital Signs Temp 37.7 C 11/09/20 15:25 Pulse 104 H 11/09/20 15:51 Resp 19 11/09/20 15:51 BP 115/46 L 11/09/20 15:51 Pulse Ox 92 L 11/09/20 15:51 Weight: 48.988 kg - Exam Quality Assessment: Supplemental Oxygen General: Alert, Oriented, Cooperative. No: Mild Distress HEENT: Conjunctiva Clear. No: Mucosa Moist & [place] (dry), Scleral Icterus Neck: Supple, Trachea Midline. No: JVD Lungs: Normal Respiratory Effort, Crackles (both lower and mid lungs L>R) Cardiovascular: Regular Rhythm, Tachycardia. No: Systolic Murmur GI/Abdominal Exam: Normal Bowel Sounds, Soft, Non-Tender, No Distention Extremities: Normal Capillary Refill. No: Pedal Edema, Increased Warmth Peripheral Pulses: 2+: Dorsalis Pedis (L), Dorsalis Pedis (R) Skin: Warm, Dry. No: Rash Neuro Extensive - Mental Status: Alert, Oriented x3, Nl Response to Commands Neuro Extensive - Motor, Sensory, Reflexes: No: Dysarthria, Abnormal Motor, Tremor Psychiatric: Alert, Normal Affect - Patient Data Lab Results Last 24 hrs: Laboratory Results - last 24 hr 11/09/20 11/09/20 11/09/20 Range/Units 14:19 14:19 14:19 WBC 8.4 (4.5-11.0) K/uL RBC 3.68 L (4.30-5.90) M/uL Hgb 11.9 L (12.0-15.0) g/dL Hct 36.2 L (40.0-54.0) % MCV 98 (80-98) fL MCH 32 H (27-31) pg MCHC 33 (32-36) % Plt Count 158 (150-400) K/uL Sodium 141 (140-148) mmol/L Potassium 3.6 (3.6-5.2) mmol/L Chloride 106 (100-108) mmol/L Carbon Dioxide 23 (21-32) mmol/L Anion Gap 11.7 (5.0-14.0) mmol/L BUN 30 H (7-18) mg/dL Creatinine 1.2 (0.8-1.3) mg/dL Est Cr Clr Drug Dosing 31.18 mL/min Estimated GFR (MDRD) 58 L (>60) Glucose 112 H (74-106) mg/dL Lactic Acid 1.9 (0.4-2.0) mmol/L Calcium 9.1 (8.5-10.1) mg/dL Urine Color (YELLOW) Urine Appearance (CLEAR) Urine pH (5.0-8.0) Ur Specific Sixes (1.008-1.030) Urine Protein (NEGATIVE) mg/dL Urine Glucose (UA) (NEGATIVE) mg/dL Urine Ketones (NEGATIVE) mg/dL Urine Occult Blood (NEGATIVE) Urine Nitrite (NEGATIVE) Urine Bilirubin (NEGATIVE) Urine Urobilinogen (0.2-1.0) EU/dL Ur Leukocyte Esterase (NEGATIVE) Urine RBC (0-5) Urine WBC (0-5) Ur Epithelial Cells Amorphous Sediment Urine Bacteria Urine Mucus Influenza Type A RNA (NEGATIVE) RSV RNA (INAAT) (NEGATIVE) Influenza Type B RNA (NEGATIVE) SARS-CoV-2 RNA (AGA) (NEGATIVE) 11/09/20 11/09/20 Range/Units 15:03 15:36 WBC (4.5-11.0) K/uL RBC (4.30-5.90) M/uL Hgb (12.0-15.0) g/dL Hct (40.0-54.0) % MCV (80-98) fL MCH (27-31) pg MCHC (32-36) % Plt Count (150-400) K/uL Sodium (140-148) mmol/L Potassium (3.6-5.2) mmol/L Chloride (100-108) mmol/L Carbon Dioxide (21-32) mmol/L Anion Gap (5.0-14.0) mmol/L BUN (7-18) mg/dL Creatinine (0.8-1.3) mg/dL Est Cr Clr Drug Dosing mL/min Estimated GFR (MDRD) (>60) Glucose (74-106) mg/dL Lactic Acid (0.4-2.0) mmol/L Calcium (8.5-10.1) mg/dL Urine Color Yellow (YELLOW) Urine Appearance Clear (CLEAR) Urine pH 5.5 (5.0-8.0) Ur Specific Sixes >= 1.030 (1.008-1.030) Urine Protein 100 H (NEGATIVE) mg/dL Urine Glucose (UA) Negative (NEGATIVE) mg/dL Urine Ketones Negative (NEGATIVE) mg/dL Urine Occult Blood Moderate H (NEGATIVE) Urine Nitrite Negative (NEGATIVE) Urine Bilirubin Small H (NEGATIVE) Urine Urobilinogen 0.2 (0.2-1.0) EU/dL Ur Leukocyte Esterase Moderate H (NEGATIVE) Urine RBC Semi-packed H (0-5) Urine WBC 30-40 H (0-5) Ur Epithelial Cells Few Amorphous Sediment Not seen Urine Bacteria Many Urine Mucus Not seen Influenza Type A RNA Negative (NEGATIVE) RSV RNA (INAAT) Negative (NEGATIVE) Influenza Type B RNA Negative (NEGATIVE) SARS-CoV-2 RNA (AGA) Negative (NEGATIVE) Result Diagrams: 11/09/20 14:19 11/09/20 14:19 Imaging Impressions Last 24 hrs: CXR-images personally reviewed-there are patchy bilateral infiltrates in the midlung area. Heart size is normal. No mass. No effusions. Sepsis Event Note - Evaluation Sepsis Screening Result: Sepsis Risk - Focused Exam Vital Signs: Vital Signs Temp Temp Pulse Resp BP Pulse Ox 11/09/20 15:51 104 H 19 115/46 L 92 L 11/09/20 15:25 37.7 C 117 H 26 H 131/67 93 L 11/09/20 14:33 38.3 C H 132 H 22 H 154/89 H 96 11/09/20 14:29 38.3 C H 11/09/20 13:54 38.3 C H 132 H 22 H 154/89 H 92 L *Q Meaningful Use (ADM) - VTE *Q VTE Pharmacological Contraindications *Q: Risk of Bleeding (hematuria yesterday) - VTE Risk Assess *Q Each Risk Factor Represents 1 Point: Sepsis, Serious lung disease including pneumonia Total Score 1 Point Risk Factors: 2 Each Risk Factor Represents 2 Points: None Total Score 2 Point Risk Factors: 0 Each Risk Factor Represents 3 Points: Age 75 Years or Greater Total Score 3 Point Risk Factors: 3 Each Risk Factor Represents 5 Points: None Total Score 5 Point Risk Factors: 0 Venous Thromboembolism Risk Factor Score *Q: 5 - Problem List (1) Pneumonia SNOMED Code(s): 165206948 ICD Code: J18.9 - PNEUMONIA, UNSPECIFIED ORGANISM Status: Acute Current Visit: Yes Qualifiers: Pneumonia type: due to unspecified organism Laterality: bilateral Lung location: unspecified part of lung Qualified Code(s): J18.9 - Pneumonia, unspecified organism (2) Sepsis SNOMED Code(s): 28735073 ICD Code: A41.9 - SEPSIS, UNSPECIFIED ORGANISM Status: Acute Current Visit: Yes Qualifiers: Sepsis type: sepsis due to unspecified organism Sepsis acute organ dysfunction status: with acute organ dysfunction Severe sepsis acute organ dysfunction type: acute respiratory failure Acute respiratory failure type: with hypoxia Severe sepsis shock status: without septic shock Qualified Code(s): A41.9 - Sepsis, unspecified organism; R65.20 - Severe sepsis without septic shock; J96.01 - Acute respiratory failure with hypoxia (3) UTI (urinary tract infection) SNOMED Code(s): 17342455 ICD Code: N39.0 - URINARY TRACT INFECTION, SITE NOT SPECIFIED Status: Acute Current Visit: Yes Qualifiers: Urinary tract infection type: acute cystitis Hematuria presence: without hematuria Qualified Code(s): N30.00 - Acute cystitis without hematuria (4) Systolic congestive heart failure SNOMED Code(s): 93201473, 674272538 ICD Code: I50.20 - UNSPECIFIED SYSTOLIC (CONGESTIVE) HEART FAILURE Status: Chronic Current Visit: No Qualifiers: Heart failure chronicity: chronic Qualified Code(s): I50.22 - Chronic sy stolic (congestive) heart failure (5) BPH with urinary obstruction SNOMED Code(s): 348490120 ICD Code: N40.1 - BENIGN PROSTATIC HYPERPLASIA WITH LOWER URINARY TRACT SYMP; N13.8 - OTHER OBSTRUCTIVE AND REFLUX UROPATHY Status: Chronic Current Visit: No Problem List Initiated/Reviewed/Updated: Yes Orders Last 24hrs: Active Orders 24 hr Category Date Time Status Patient Status Manage Transfer [TRANSFER] Routine ADT 11/09/20 16:17 Ordered CULTURE BLOOD [BC] Stat Lab 11/09/20 14:19 Received CULTURE BLOOD [BC] Stat Lab 11/09/20 15:26 Received CULTURE URINE [RM] Stat Lab 11/09/20 15:35 Received Lactated Ringers [Ringers, Lactated] 1,000 ml Med 11/09/20 15:30 Active IV ASDIRECTED Levofloxacin/Dextrose 5%-Water [Levaquin in D5W 750 MG/ Med 11/09/20 15:27 Active 150 ML] 750 mg Premix Bag 1 bag IV ONETIME Sodium Chloride 0.9% [Saline Flush] Med 11/09/20 14:02 Active 10 ml FLUSH ASDIRECTED PRN Resuscitation Status Routine Resus Stat 11/09/20 16:21 Ordered Medication Orders Levofloxacin/Dextrose 750 mg/ (Premix) 150 mls @ 100 mls/hr IV ONETIME ONE Stop: 11/09/20 16:56 Last Admin: 11/09/20 15:40 Dose: 100 mls/hr Documented by: MATILDA Lactated Ringer's (Ringers, Lactated) 1,000 mls @ 150 mls/hr IV ASDIRECTED ANUJ Last Admin: 11/09/20 15:38 Dose: 150 mls/hr Documented by: MATILDA Sodium Chloride (Sodium Chloride 0.9% 10 Ml Syringe) 10 ml FLUSH ASDIRECTED PRN PRN Reason: Keep Vein Open Last Admin: 11/09/20 14:33 Dose: 10 ml Documented by: MATILDA Assessment/Plan Comment:: ASSESSMENT AND PLAN - Bilateral pneumonia-complicated by acute respiratory failure with hypoxia and sepsis. Minimal symptoms Prior to admission but obvious infiltrates on chest x-ray. Currently requiring 3 L. He has received levofloxacin. -Continue levofloxacin every 48 hours -Supplement oxygen as needed -Follow-up cultures Acute cystitis, complicated UTI-patient had Sommer catheter changed yesterday and there is no evidence for infection at that time. Today has many bacteria, positive leukocyte esterase and many white blood cells. History of BPH and has had longstanding Sommer catheter use. -Levofloxacin as above -Follow-up urine culture Systolic congestive heart failure-chronic and stable. 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 Now he has evidence for infection as discussed above. He did have hematuria yesterday that led to obstruction of his Sommer catheter requiring a change. -Continue home medications Maintenance issues - -DVT prophylaxis-mechanical with hematuria yesterday -GI prophylaxis-not indicated -Nutrition-regular -Sommer catheter-chronic indwelling CODE STATUS -DNR/DNI Admission justification -this patient will be admitted for inpatient services and is medically appropriate meeting medical necessity for inpatient admission as outlined in my documentation. I reasonably expect the patient will require inpatient services that span a period time over 2 midnights. I reasonably expect this patient to be discharged or transferred within 96 hours after admission to the [facility]. Disposition -I anticipate discharge home after the hospital stay Primary care physician - Dr Fabrizio Goode M.D. - Mortality Measure Prognosis:: Good
[2020-11-09] MEDS ORDERED: Ondansetron 4 MG/2 ML SDV IV PRN (16:56)
[2020-11-09] MEDS ORDERED: Albuterol 0.083% 2.5 MG/3 ML Neb Soln NEB PRN (16:56)
[2020-11-09] MEDS ORDERED: LORazepam 2 MG/ML SDV IVPUSH PRN (16:56)
[2020-11-09] MEDS ORDERED: Acetaminophen 325 MG Tab PO PRN (16:56)
[2020-11-09] MEDS ORDERED: Ondansetron 4 MG Tab.DIS PO PRN (16:56)
[2020-11-09] MEDS ORDERED: Magnesium Hydroxide 400 MG/5 ML Susp 30 ML Cup PO PRN (16:56)
[2020-11-09] MEDS ORDERED: Capsaicin 0.025% Crm 60 GM Tube TOP PRN (16:56)
[2020-11-09] MEDS ORDERED: Acetaminophen/HYDROcodone 325-5 MG Tab PO PRN (16:56)
[2020-11-09] MEDS: Carvedilol 12.5 MG Tab PO SCH (17:23)
[2020-11-09] MEDS ORDERED: Potassium Chloride 20 MEQ Tab.ER PO ONE (17:30)
[2020-11-09] MEDS: atorvaSTATin 20 MG Tab PO SCH (20:53)
[2020-11-09] MEDS: Lactobacillus Rhamnosus GG (Probiotic) Cap PO SCH (20:53)
[2020-11-09] MEDS: Mirtazapine 15 MG Tab PO SCH (20:53)
[2020-11-09] MEDS: Latanoprost 0.005% Ophth Soln 2.5 ML Bottle EYEBOTH SCH (20:53)
[2020-11-09] MEDS: Melatonin 3 MG Tab PO SCH (20:53)
[2020-11-09] MEDS ORDERED: Non-Formulary Medication 1 Each (Atorvastatin Calcium [Atorvastatin Calcium] 80 MG Tablet) PO SCH (21:00)
[2020-11-09] MEDS ORDERED: Timolol Maleate 0.5% Ophth Soln 5 ML Bottle EYEBOTH SCH (21:00)
[2020-11-09] MEDS ORDERED: Non-Formulary Medication 1 Each (Timolol Maleate/Pf [Timolol Maleate 0.5% Eye Drop] 1 EACH EYEBOTH SCH (21:00)
[2020-11-10] MEDS ORDERED: Sodium Chloride 0.9% 500 ML IV ONE ×2 (03:54→18:31)
[2020-11-10] MEDS: Sodium Chloride 0.9% 1,000 ML IV SCH ×2 (04:01→09:18)
[2020-11-10] MEDS: Pantoprazole 40 MG Tab.CR PO SCH (07:27)
[2020-11-10] MEDS ORDERED: Non-Formulary Medication 1 Each (Bimatoprost [Lumigan 0.01% Ophth Soln] 5 ML Bottle) EYEBOTH SCH (09:00)
[2020-11-10] MEDS: Aspirin 81 MG Tab.Chew PO SCH (09:19)
[2020-11-10] MEDS: Tamsulosin 0.4 MG Cap.ER PO SCH (09:19)
[2020-11-10] MEDS: Clopidogrel 75 MG Tab PO SCH (09:19)
[2020-11-10] MEDS: Lactobacillus Rhamnosus GG (Probiotic) Cap PO SCH ×2 (09:19→20:16)
[2020-11-10] MEDS: Timolol Maleate 0.5% Ophth Soln 5 ML Bottle EYEBOTH SCH (09:20)
[2020-11-10] MEDS: Carvedilol 12.5 MG Tab PO SCH (10:17)
[2020-11-10] MEDS: Isosorbide Mononitrate 30 MG Tab.ER PO SCH (10:17)
[2020-11-10] MEDS ORDERED: Sodium Chloride 0.9% 10 ML SDV IV ONE (14:45)
--- NOTE | 2020-11-10 14:51 | PCM.PN ---
- General Info Date of Service: 11/10/20 Admission Dx/Problem (Free Text): Admission Diagnosis/Problem Admission Diagnosis/Problem Bilateral pneumonia Functional Status: Reports: Pain Controlled - Review of Systems General: Denies: Fever HEENT: Reports: No Symptoms Pulmonary: Reports: No Symptoms Cardiovascular: Reports: No Symptoms Gastrointestinal: Reports: No Symptoms Genitourinary: Reports: No Symptoms Musculoskeletal: Reports: No Symptoms Skin: Reports: No Symptoms Neurological: Reports: No Symptoms Psychiatric: Reports: No Symptoms - Patient Data Vitals - Most Recent: Last Vital Signs Temp 97.1 F 11/10/20 14:00 Pulse 87 11/10/20 14:00 Resp 18 11/10/20 14:00 BP 95/57 L 11/10/20 14:00 Pulse Ox 93 L 11/10/20 14:00 Weight - Most Recent: 139 lb 9.582 oz I&O - Last 24 Hours: Intake & Output 11/09/20 11/10/20 11/10/20 22:59 06:59 14:59 Intake Total 607 1350 600 Output Total 300 160 100 Balance 307 1190 500 Lab Results Last 24 Hours: Laboratory Results - last 24 hr 11/09/20 11/09/20 11/09/20 Range/Units 14:19 14:19 15:03 WBC (4.5-11.0) K/uL RBC (4.30-5.90) M/uL Hgb (12.0-15.0) g/dL Hct (40.0-54.0) % MCV (80-98) fL MCH (27-31) pg MCHC (32-36) % Plt Count (150-400) K/uL Sodium 141 (140-148) mmol/L Potassium 3.6 (3.6-5.2) mmol/L Chloride 106 (100-108) mmol/L Carbon Dioxide 23 (21-32) mmol/L Anion Gap 11.7 (5.0-14.0) mmol/L BUN 30 H (7-18) mg/dL Creatinine 1.2 (0.8-1.3) mg/dL Est Cr Clr Drug Dosing 31.18 mL/min Estimated GFR (MDRD) 58 L (>60) Glucose 112 H (74-106) mg/dL Lactic Acid 1.9 (0.4-2.0) mmol/L Calcium 9.1 (8.5-10.1) mg/dL Urine Color Yellow (YELLOW) Urine Appearance Clear (CLEAR) Urine pH 5.5 (5.0-8.0) Ur Specific [place] >= 1.030 (1.008-1.030) Urine Protein 100 H (NEGATIVE) mg/dL Urine Glucose (UA) Negative (NEGATIVE) mg/dL Urine Ketones Negative (NEGATIVE) mg/dL Urine Occult Blood Moderate H (NEGATIVE) Urine Nitrite Negative (NEGATIVE) Urine Bilirubin Small H (NEGATIVE) Urine Urobilinogen 0.2 (0.2-1.0) EU/dL Ur Leukocyte Esterase Moderate H (NEGATIVE) Urine RBC Semi-packed H (0-5) Urine WBC 30-40 H (0-5) Ur Epithelial Cells Few Amorphous Sediment Not seen Urine Bacteria Many Urine Mucus Not seen Influenza Type A RNA (NEGATIVE) RSV RNA (INAAT) (NEGATIVE) Influenza Type B RNA (NEGATIVE) SARS-CoV-2 RNA (AGA) (NEGATIVE) 11/09/20 11/10/20 11/10/20 Range/Units 15:36 06:15 06:15 WBC 7.9 (4.5-11.0) K/uL RBC 2.77 L (4.30-5.90) M/uL Hgb 8.8 L D (12.0-15.0) g/dL Hct 27.7 L (40.0-54.0) % MCV 100 H (80-98) fL MCH 32 H (27-31) pg MCHC 32 (32-36) % Plt Count 128 L (150-400) K/uL Sodium 141 (140-148) mmol/L Potassium 4.4 (3.6-5.2) mmol/L Chloride 108 (100-108) mmol/L Carbon Dioxide 23 (21-32) mmol/L Anion Gap 9.6 (5.0-14.0) mmol/L BUN 34 H (7-18) mg/dL Creatinine 1.4 H (0.8-1.3) mg/dL Est Cr Clr Drug Dosing 34.55 mL/min Estimated GFR (MDRD) 48 L (>60) Glucose 98 (74-106) mg/dL Lactic Acid (0.4-2.0) mmol/L Calcium 8.1 L (8.5-10.1) mg/dL Urine Color (YELLOW) Urine Appearance (CLEAR) Urine pH (5.0-8.0) Ur Specific [place] (1.008-1.030) Urine Protein (NEGATIVE) mg/dL Urine Glucose (UA) (NEGATIVE) mg/dL Urine Ketones (NEGATIVE) mg/dL Urine Occult Blood (NEGATIVE) Urine Nitrite (NEGATIVE) Urine Bilirubin (NEGATIVE) Urine Urobilinogen (0.2-1.0) EU/dL Ur Leukocyte Esterase (NEGATIVE) Urine RBC (0-5) Urine WBC (0-5) Ur Epithelial Cells Amorphous Sediment Urine Bacteria Urine Mucus Influenza Type A RNA Negative (NEGATIVE) RSV RNA (INAAT) Negative (NEGATIVE) Influenza Type B RNA Negative (NEGATIVE) SARS-CoV-2 RNA (AGA) Negative (NEGATIVE) [place]den Results Last 24 Hours: Microbiology 11/09/20 14:19 Aerobic Blood Culture - Preliminary Blood - Venous NO GROWTH AFTER 1 DAY Anaerobic Blood Culture - Preliminary NO GROWTH AFTER 1 DAY Med Orders - Current: Current Medications Acetaminophen (Acetaminophen 325 Mg Tab) 650 mg PO Q4H PRN PRN Reason: Pain (Mild 1-3)/fever Last Admin: 11/10/20 07:30 Dose: 650 mg Documented by: Hydrocodone Bitart/Acetaminophen (Acetaminophen/Hydrocodone 325-5 Mg Tab) 1 tab PO Q4H PRN PRN Reason: Pain (moderate 4-6) Albuterol (Albuterol 0.083% 2.5 Mg/3 Ml Neb Soln) 2.5 mg NEB Q4H PRN PRN Reason: Shortness Of Breath/wheezing Aspirin (Aspirin 81 Mg Tab.Chew) 81 mg PO DAILY [facility] Last Admin: 11/10/20 09:19 Dose: 81 mg Documented by: Atorvastatin Calcium (Atorvastatin 20 Mg Tab) 80 mg PO BEDTIME [facility] Last Admin: 11/09/20 20:53 Dose: 80 mg Documented by: Capsaicin (Capsaicin 0.025% Crm 60 Gm Tube) 0 gm TOP Q2H PRN PRN Reason: joint pain Carvedilol (Carvedilol 12.5 Mg Tab) 6.25 mg PO BID [facility] Clopidogrel Bisulfate (Clopidogrel 75 Mg Tab) 75 mg PO DAILY [facility] Last Admin: 11/10/20 09:19 Dose: 75 mg Documented by: Sodium Chloride (Normal Saline) 1,000 mls @ 100 mls/hr IV ASDIRECTED [facility] Last Admin: 11/10/20 09:18 Dose: 100 mls/hr Documented by: Levofloxacin/Dextrose 750 mg/ (Premix) 150 mls @ 100 mls/hr IV Q48H ANUJ Sodium Chloride (Normal Saline) 1,000 mls @ 75 mls/hr IV ASDIRECTED [facility] Isosorbide Mononitrate (Isosorbide Mononitrate 30 Mg Tab.Er) 30 mg PO DAILY [facility] Last Admin: 11/10/20 10:17 Dose: 30 mg Documented by: Lactobacillus Rhamnosus (Lactobacillus Rhamnosus Gg (Probiotic) Cap) 1 cap PO BID [facility] Last Admin: 11/10/20 09:19 Dose: 1 cap Documented by: Latanoprost (Latanoprost 0.005% Ophth Soln 2.5 Ml Bottle) 0 ml EYEBOTH BEDTIME [facility] Last Admin: 11/09/20 20:53 Dose: 1 drop Documented by: Lorazepam (Lorazepam 2 Mg/Ml Sdv) 0.5 mg IVPUSH Q4H PRN PRN Reason: Nausea/Vomiting Magnesium Hydroxide (Magnesium Hydroxide 400 Mg/5 Ml Susp 30 Ml Cup) 30 ml PO Q12H PRN PRN Reason: Constipation Melatonin (Melatonin 3 Mg Tab) 9 mg PO BEDTIME [facility] Last Admin: 11/09/20 20:53 Dose: 9 mg Documented by: Mirtazapine (Mirtazapine 15 Mg Tab) 15 mg PO BEDTIME [facility] Last Admin: 11/09/20 20:53 Dose: 15 mg Documented by: Ondansetron HCl (Ondansetron 4 Mg/2 Ml Sdv) 4 mg IV Q6H PRN PRN Reason: Nausea/Vomiting Ondansetron HCl (Ondansetron 4 Mg Tab.Dis) 4 mg PO Q6H PRN PRN Reason: Nausea able to take PO Pantoprazole Sodium (Pantoprazole 40 Mg Tab.Cr) 40 mg PO ACBREAKFAST [facility] Last Admin: 11/10/20 07:27 Dose: 40 mg Documented by: Senna/Docusate Sodium (Docusate Sodium/Sennosides 50-8.6 Mg Tab) 2 tab PO DAILY [facility] Last Admin: 11/10/20 09:19 Dose: 2 tab Documented by: Senna/Docusate Sodium (Docusate Sodium/Sennosides 50-8.6 Mg Tab) 1 tab PO BID PRN PRN Reason: Constipation Sodium Chloride (Sodium Chloride 0.9% 10 Ml Syringe) 10 ml FLUSH ASDIRECTED PRN PRN Reason: Keep Vein Open Last Admin: 11/09/20 14:33 Dose: 10 ml Documented by: Sodium Chloride (Sodium Chloride 0.9% 10 Ml Sdv) 1,000 ml IV ONETIME ONE Stop: 11/10/20 14:46 Tamsulosin HCl (Tamsulosin 0.4 Mg Cap.Er) 0.4 mg PO DAILY [facility] Last Admin: 11/10/20 09:19 Dose: 0.4 mg Documented by: Timolol Maleate (Timolol Maleate 0.5% Ophth Soln 5 Ml Bottle) 0 ml EYEBOTH DAILY [facility] Last Admin: 11/10/20 09:20 Dose: 1 drop Documented by: Discontinued Medications Acetaminophen (Acetaminophen 325 Mg Tab) 650 mg PO NOW ONE Stop: 11/09/20 14:08 Last Admin: 11/09/20 14:29 Dose: 650 mg Documented by: Carvedilol (Carvedilol 12.5 Mg Tab) 12.5 mg PO BIDAC [facility] Last Admin: 11/10/20 10:17 Dose: 12.5 mg Documented by: Lactated Ringer's (Ringers, Lactated) 1,000 mls @ 1,000 mls/hr IV BOLUS ONE Stop: 11/09/20 15:07 Last Admin: 11/09/20 14:15 Dose: 1,000 mls/hr Documented by: Levofloxacin/Dextrose 750 mg/ (Premix) 150 mls @ 100 mls/hr IV ONETIME ONE Stop: 11/09/20 16:56 Last Admin: 11/09/20 15:40 Dose: 100 mls/hr Documented by: Lactated Ringer's (Ringers, Lactated) 1,000 mls @ 150 mls/hr IV ASDIRECTED [facility] Last Admin: 11/09/20 15:38 Dose: 150 mls/hr Documented by: Sodium Chloride (Normal Saline) 500 mls @ 250 mls/hr IV .BOLUS ONE Stop: 11/10/20 05:53 Last Admin: 11/10/20 04:01 Dose: 250 mls/hr Documented by: Potassium Chloride (Potassium Chloride 20 Meq Tab.Er) 40 meq PO ONETIME ONE Stop: 11/09/20 17:31 Last Admin: 11/09/20 17:22 Dose: 40 meq Documented by: Timolol Maleate (Timolol Maleate 0.5% Ophth Soln 5 Ml Bottle) 0 ml EYEBOTH BEDTIME ANUJ Last Admin: 11/09/20 21:35 Dose: Not Given Documented by: - Exam General: Alert, Oriented HEENT: No: Scleral Icterus Neck: Supple Lungs: Crackles Cardiovascular: Regular Rate, Regular Rhythm GI/Abdominal Exam: Normal Bowel Sounds Extremities: Normal Inspection Skin: Warm, Dry Neurological: No New Focal Deficit Psy/Mental Status: Alert, Normal Affect, Normal Mood - Patient Data Lab Results Last 24 hrs: Laboratory Results - last 24 hr 11/09/20 11/09/20 11/09/20 Range/Units 14:19 14:19 15:03 WBC (4.5-11.0) K/uL RBC (4.30-5.90) M/uL Hgb (12.0-15.0) g/dL Hct (40.0-54.0) % MCV (80-98) fL MCH (27-31) pg MCHC (32-36) % Plt Count (150-400) K/uL Sodium 141 (140-148) mmol/L Potassium 3.6 (3.6-5.2) mmol/L Chloride 106 (100-108) mmol/L Carbon Dioxide 23 (21-32) mmol/L Anion Gap 11.7 (5.0-14.0) mmol/L BUN 30 H (7-18) mg/dL Creatinine 1.2 (0.8-1.3) mg/dL Est Cr Clr Drug Dosing 31.18 mL/min Estimated GFR (MDRD) 58 L (>60) Glucose 112 H (74-106) mg/dL Lactic Acid 1.9 (0.4-2.0) mmol/L Calcium 9.1 (8.5-10.1) mg/dL Urine Color Yellow (YELLOW) Urine Appearance Clear (CLEAR) Urine pH 5.5 (5.0-8.0) Ur Specific [place] >= 1.030 (1.008-1.030) Urine Protein 100 H (NEGATIVE) mg/dL Urine Glucose (UA) Negative (NEGATIVE) mg/dL Urine Ketones Negative (NEGATIVE) mg/dL Urine Occult Blood Moderate H (NEGATIVE) Urine Nitrite Negative (NEGATIVE) Urine Bilirubin Small H (NEGATIVE) Urine Urobilinogen 0.2 (0.2-1.0) EU/dL Ur Leukocyte Esterase Moderate H (NEGATIVE) Urine RBC Semi-packed H (0-5) Urine WBC 30-40 H (0-5) Ur Epithelial Cells Few Amorphous Sediment Not seen Urine Bacteria Many Urine Mucus Not seen Influenza Type A RNA (NEGATIVE) RSV RNA (INAAT) (NEGATIVE) Influenza Type B RNA (NEGATIVE) SARS-CoV-2 RNA (AGA) (NEGATIVE) 11/09/20 11/10/20 11/10/20 Range/Units 15:36 06:15 06:15 WBC 7.9 (4.5-11.0) K/uL RBC 2.77 L (4.30-5.90) M/uL Hgb 8.8 L D (12.0-15.0) g/dL Hct 27.7 L (40.0-54.0) % MCV 100 H (80-98) fL MCH 32 H (27-31) pg MCHC 32 (32-36) % Plt Count 128 L (150-400) K/uL Sodium 141 (140-148) mmol/L Potassium 4.4 (3.6-5.2) mmol/L Chloride 108 (100-108) mmol/L Carbon Dioxide 23 (21-32) mmol/L Anion Gap 9.6 (5.0-14.0) mmol/L BUN 34 H (7-18) mg/dL Creatinine 1.4 H (0.8-1.3) mg/dL Est Cr Clr Drug Dosing 34.55 mL/min Estimated GFR (MDRD) 48 L (>60) Glucose 98 (74-106) mg/dL Lactic Acid (0.4-2.0) mmol/L Calcium 8.1 L (8.5-10.1) mg/dL Urine Color (YELLOW) Urine Appearance (CLEAR) Urine pH (5.0-8.0) Ur Specific [place] (1.008-1.030) Urine Protein (NEGATIVE) mg/dL Urine Glucose (UA) (NEGATIVE) mg/dL Urine Ketones (NEGATIVE) mg/dL Urine Occult Blood (NEGATIVE) Urine Nitrite (NEGATIVE) Urine Bilirubin (NEGATIVE) Urine Urobilinogen (0.2-1.0) EU/dL Ur Leukocyte Esterase (NEGATIVE) Urine RBC (0-5) Urine WBC (0-5) Ur Epithelial Cells Amorphous Sediment Urine Bacteria Urine Mucus Influenza Type A RNA Negative (NEGATIVE) RSV RNA (INAAT) Negative (NEGATIVE) Influenza Type B RNA Negative (NEGATIVE) SARS-CoV-2 RNA (AGA) Negative (NEGATIVE) Result Diagrams: 11/10/20 06:15 11/10/20 06:15 Jayden Results Last 24 hrs: Microbiology 11/09/20 14:19 Aerobic Blood Culture - Preliminary Blood - Venous NO GROWTH AFTER 1 DAY Anaerobic Blood Culture - Preliminary NO GROWTH AFTER 1 DAY Sepsis Event Note - Evaluation Sepsis Screening Result: No Definite Risk - Focused Exam Vital Signs: Vital Signs Temp Temp Pulse Pulse Resp BP BP 11/10/20 14:00 97.1 F 87 18 95/57 L 11/10/20 11:30 96.2 F L 74 18 92/58 L 11/10/20 10:27 97.8 F 72 18 85/40 L 11/10/20 10:17 83 110/63 11/10/20 08:00 97.2 F 11/10/20 07:30 101 F H 11/10/20 07:24 101 F H 83 18 110/63 11/10/20 02:58 98.8 F 90 18 109/54 L Pulse Ox 11/10/20 14:00 93 L 11/10/20 11:30 99 11/10/20 10:27 99 11/10/20 10:17 11/10/20 08:00 11/10/20 07:30 11/10/20 07:24 95 11/10/20 02:58 91 L - Problem List Review Problem List Initiated/Reviewed/Updated: Yes - My Orders Last 24 Hours: My Active Orders 11/10/20 14:40 BASIC METABOLIC PANEL,BMP [CHEM] Routine 11/10/20 14:41 CBC W/O DIFF,HEMOGRAM [HEME] Routine 11/10/20 14:45 Sodium Chloride 0.9% [Normal Saline] 1,000 ml IV ONETIME ONE Sodium Chloride 0.9% [Normal Saline] 1,000 ml IV ASDIRECTED 11/10/20 21:00 carvediloL [Coreg] 6.25 mg PO BID - Plan Plan:: ASSESSMENT AND PLAN - Bilateral pneumonia-respiratory symptoms appear to have improved. Continued oxygen requirement. -Continue levofloxacin every 48 hours -Supplement oxygen as needed -Follow-up cultures Acute cystitis, complicated UTI-it appears a urine culture was ordered yesterday though there is no report on it yet. -Levofloxacin as above -Follow-up urine culture Systolic congestive heart failure-chronic and stable. No evidence of acute heart failure. In fact, the patient has had decreased urine output and oral intake. Requested IV fluid bolus and will continue maintenance IV fluids until patient's oral intake improves. 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 Now he has evidence for infection as discussed above. He did have hematuria that led to obstruction of his Desir catheter requiring a change. -Continue home medications Maintenance issues - -DVT prophylaxis-mechanical with recent hematuria -GI prophylaxis-not indicated -Nutrition-regular -Desir catheter-chronic indwelling CODE STATUS -DNR/DNI
[2020-11-10] MEDS ORDERED: Sodium Chloride 0.9% 1,000 ML IV ONE (15:00)
[2020-11-10] MEDS ORDERED: Sodium Chloride 0.9% 1,000 ML IV SCH (16:00)
[2020-11-10] MEDS: Melatonin 3 MG Tab PO SCH (20:17)
[2020-11-10] MEDS: Latanoprost 0.005% Ophth Soln 2.5 ML Bottle EYEBOTH SCH (20:17)
[2020-11-10] MEDS: Mirtazapine 15 MG Tab PO SCH (20:17)
[2020-11-10] MEDS: atorvaSTATin 20 MG Tab PO SCH (20:18)
[2020-11-10] MEDS: Carvedilol 3.125 MG Tab PO SCH (20:18)
[2020-11-11] MEDS: Sodium Chloride 0.9% 1,000 ML IV SCH ×3 (03:23→22:38)
[2020-11-11] MEDS: Aspirin 81 MG Tab.Chew PO SCH (08:59)
[2020-11-11] MEDS: Lactobacillus Rhamnosus GG (Probiotic) Cap PO SCH ×2 (08:59→20:18)
[2020-11-11] MEDS: Tamsulosin 0.4 MG Cap.ER PO SCH (08:59)
[2020-11-11] MEDS: Clopidogrel 75 MG Tab PO SCH (08:59)
[2020-11-11] MEDS: Isosorbide Mononitrate 30 MG Tab.ER PO SCH (08:59)
[2020-11-11] MEDS: Pantoprazole 40 MG Tab.CR PO SCH (08:59)
[2020-11-11] MEDS: Carvedilol 3.125 MG Tab PO SCH ×2 (08:59→20:16)
[2020-11-11] MEDS: Timolol Maleate 0.5% Ophth Soln 5 ML Bottle EYEBOTH SCH (09:00)
--- NOTE | 2020-11-11 12:35 | PCM.PN ---
- General Info Date of Service: 11/11/20 Admission Dx/Problem (Free Text): Admission Diagnosis/Problem Admission Diagnosis/Problem Bilateral pneumonia Subjective Update: Urine output remained marginal over much of the day yesterday and overnight. It is slightly picking up this morning. Patient remains on antibiotics in treatment of bilateral pneumonia and possible complicated urinary tract infection related to indwelling Desir catheter. She reports subjectively feeling slightly better today than previous. Functional Status: Reports: Pain Controlled - Review of Systems General: Reports: No Symptoms HEENT: Reports: No Symptoms Pulmonary: Reports: No Symptoms Cardiovascular: Reports: No Symptoms Gastrointestinal: Reports: No Symptoms Genitourinary: Denies: Burning, Flank Pain Musculoskeletal: Reports: No Symptoms Neurological: Reports: No Symptoms Psychiatric: Reports: No Symptoms - Patient Data Vitals - Most Recent: Last Vital Signs Temp 97.2 F 11/11/20 11:00 Pulse 66 11/11/20 11:00 Resp 18 11/11/20 11:00 BP 109/58 L 11/11/20 11:00 Pulse Ox 97 11/11/20 11:00 Weight - Most Recent: 139 lb 9.582 oz I&O - Last 24 Hours: Intake & Output 11/10/20 11/11/20 11/11/20 22:59 06:59 14:59 Intake Total 2576 1102 Output Total 155 235 180 Balance 2421 867 -180 Lab Results Last 24 Hours: Laboratory Results - last 24 hr 11/10/20 11/10/20 Range/Units 14:56 14:56 WBC 5.8 (4.5-11.0) K/uL RBC 2.78 L (4.30-5.90) M/uL Hgb 8.8 L (12.0-15.0) g/dL Hct 28.1 L (40.0-54.0) % MCV 101 H (80-98) fL MCH 32 H (27-31) pg MCHC 31 L (32-36) % Plt Count 113 L (150-400) K/uL Sodium 141 (140-148) mmol/L Potassium 4.3 (3.6-5.2) mmol/L Chloride 109 H (100-108) mmol/L Carbon Dioxide 21 (21-32) mmol/L Anion Gap 15.3 H (5.0-14.0) mmol/L BUN 39 H (7-18) mg/dL Creatinine 1.5 H (0.8-1.3) mg/dL Est Cr Clr Drug Dosing 32.25 mL/min Estimated GFR (MDRD) 44 L (>60) Glucose 109 H (74-106) mg/dL Calcium 8.5 (8.5-10.1) mg/dL Jayden Results Last 24 Hours: Microbiology 11/09/20 15:35 Urine Culture - Preliminary Urine, Desir Cath (Indwelling) MIXED POSITIVE WARD DAY 1 11/09/20 15:26 Aerobic Blood Culture - Preliminary Blood - Venous NO GROWTH AFTER 1 DAY Anaerobic Blood Culture - Preliminary NO GROWTH AFTER 1 DAY 11/09/20 14:19 Aerobic Blood Culture - Preliminary Blood - Venous NO GROWTH AFTER 1 DAY Anaerobic Blood Culture - Preliminary NO GROWTH AFTER 1 DAY Med Orders - Current: Current Medications Acetaminophen (Acetaminophen 325 Mg Tab) 650 mg PO Q4H PRN PRN Reason: Pain (Mild 1-3)/fever Last Admin: 11/10/20 07:30 Dose: 650 mg Documented by: Hydrocodone Bitart/Acetaminophen (Acetaminophen/Hydrocodone 325-5 Mg Tab) 1 tab PO Q4H PRN PRN Reason: Pain (moderate 4-6) Albuterol (Albuterol 0.083% 2.5 Mg/3 Ml Neb Soln) 2.5 mg NEB Q4H PRN PRN Reason: Shortness Of Breath/wheezing Aspirin (Aspirin 81 Mg Tab.Chew) 81 mg PO DAILY [facility] Last Admin: 11/11/20 08:59 Dose: 81 mg Documented by: Atorvastatin Calcium (Atorvastatin 20 Mg Tab) 80 mg PO BEDTIME [facility] Last Admin: 11/10/20 20:18 Dose: 80 mg Documented by: Capsaicin (Capsaicin 0.025% Crm 60 Gm Tube) 0 gm TOP Q2H PRN PRN Reason: joint pain Carvedilol (Carvedilol 3.125 Mg Tab) 6.25 mg PO BID [facility] Last Admin: 11/11/20 08:59 Dose: 6.25 mg Documented by: Clopidogrel Bisulfate (Clopidogrel 75 Mg Tab) 75 mg PO DAILY [facility] Last Admin: 11/11/20 08:59 Dose: 75 mg Documented by: Furosemide (Furosemide 20 Mg Tab) 20 mg PO DAILY [facility] Levofloxacin/Dextrose 750 mg/ (Premix) 150 mls @ 100 mls/hr IV Q48H [facility] Sodium Chloride (Normal Saline) 1,000 mls @ 100 mls/hr IV ASDIRECTED [facility] Last Admin: 11/11/20 11:31 Dose: 125 mls/hr Documented by: Isosorbide Mononitrate (Isosorbide Mononitrate 30 Mg Tab.Er) 30 mg PO DAILY [facility] Last Admin: 11/11/20 08:59 Dose: 30 mg Documented by: Lactobacillus Rhamnosus (Lactobacillus Rhamnosus Gg (Probiotic) Cap) 1 cap PO BID [facility] Last Admin: 11/11/20 08:59 Dose: 1 cap Documented by: Latanoprost (Latanoprost 0.005% Ophth Soln 2.5 Ml Bottle) 0 ml EYEBOTH BEDTIME [facility] Last Admin: 11/10/20 20:17 Dose: 1 drop Documented by: Lorazepam (Lorazepam 2 Mg/Ml Sdv) 0.5 mg IVPUSH Q4H PRN PRN Reason: Nausea/Vomiting Magnesium Hydroxide (Magnesium Hydroxide 400 Mg/5 Ml Susp 30 Ml Cup) 30 ml PO Q12H PRN PRN Reason: Constipation Melatonin (Melatonin 3 Mg Tab) 9 mg PO BEDTIME [facility] Last Admin: 11/10/20 20:17 Dose: 9 mg Documented by: Mirtazapine (Mirtazapine 15 Mg Tab) 15 mg PO BEDTIME [facility] Last Admin: 11/10/20 20:17 Dose: 15 mg Documented by: Ondansetron HCl (Ondansetron 4 Mg/2 Ml Sdv) 4 mg IV Q6H PRN PRN Reason: Nausea/Vomiting Ondansetron HCl (Ondansetron 4 Mg Tab.Dis) 4 mg PO Q6H PRN PRN Reason: Nausea able to take PO Pantoprazole Sodium (Pantoprazole 40 Mg Tab.Cr) 40 mg PO ACBREAKFAST [facility] Last Admin: 11/11/20 08:59 Dose: 40 mg Documented by: Senna/Docusate Sodium (Docusate Sodium/Sennosides 50-8.6 Mg Tab) 2 tab PO DAILY [facility] Last Admin: 11/11/20 08:58 Dose: 2 tab Documented by: Senna/Docusate Sodium (Docusate Sodium/Sennosides 50-8.6 Mg Tab) 1 tab PO BID PRN PRN Reason: Constipation Sodium Chloride (Sodium Chloride 0.9% 10 Ml Syringe) 10 ml FLUSH ASDIRECTED PRN PRN Reason: Keep Vein Open Last Admin: 11/09/20 14:33 Dose: 10 ml Documented by: Tamsulosin HCl (Tamsulosin 0.4 Mg Cap.Er) 0.4 mg PO DAILY [facility] Last Admin: 11/11/20 08:59 Dose: 0.4 mg Documented by: Timolol Maleate (Timolol Maleate 0.5% Ophth Soln 5 Ml Bottle) 0 ml EYEBOTH DAILY [facility] Last Admin: 11/11/20 09:00 Dose: 1 drop Documented by: Discontinued Medications Acetaminophen (Acetaminophen 325 Mg Tab) 650 mg PO NOW ONE Stop: 11/09/20 14:08 Last Admin: 11/09/20 14:29 Dose: 650 mg Documented by: Carvedilol (Carvedilol 12.5 Mg Tab) 12.5 mg PO BIDAC [facility] Last Admin: 11/10/20 10:17 Dose: 12.5 mg Documented by: Lactated Ringer's (Ringers, Lactated) 1,000 mls @ 1,000 mls/hr IV BOLUS ONE Stop: 11/09/20 15:07 Last Admin: 11/09/20 14:15 Dose: 1,000 mls/hr Documented by: Levofloxacin/Dextrose 750 mg/ (Premix) 150 mls @ 100 mls/hr IV ONETIME ONE Stop: 11/09/20 16:56 Last Admin: 11/09/20 15:40 Dose: 100 mls/hr Documented by: Lactated Ringer's (Ringers, Lactated) 1,000 mls @ 150 mls/hr IV ASDIRECTED [facility] Last Admin: 11/09/20 15:38 Dose: 150 mls/hr Documented by: Sodium Chloride (Normal Saline) 1,000 mls @ 100 mls/hr IV ASDIRECTED [facility] Last Admin: 11/10/20 09:18 Dose: 100 mls/hr Documented by: Sodium Chloride (Normal Saline) 500 mls @ 250 mls/hr IV .BOLUS ONE Stop: 11/10/20 05:53 Last Admin: 11/10/20 04:01 Dose: 250 mls/hr Documented by: Sodium Chloride (Normal Saline) 1,000 mls @ 75 mls/hr IV ASDIRECTED [facility] Last Admin: 11/10/20 16:22 Dose: 75 mls/hr Documented by: Sodium Chloride (Normal Saline) 1,000 mls @ 999 mls/hr IV ONETIME ONE Stop: 11/10/20 16:00 Last Admin: 11/10/20 15:10 Dose: 999 mls/hr Documented by: Sodium Chloride (Normal Saline) 500 mls @ 250 mls/hr IV .BOLUS ONE Stop: 11/10/20 20:30 Last Admin: 11/10/20 18:35 Dose: 250 mls/hr Documented by: Potassium Chloride (Potassium Chloride 20 Meq Tab.Er) 40 meq PO ONETIME ONE Stop: 11/09/20 17:31 Last Admin: 11/09/20 17:22 Dose: 40 meq Documented by: Timolol Maleate (Timolol Maleate 0.5% Ophth Soln 5 Ml Bottle) 0 ml EYEBOTH BEDTIME [facility] Last Admin: 11/09/20 21:35 Dose: Not Given Documented by: - Exam Quality Assessment: Supplemental Oxygen General: Alert, Oriented HEENT: No: Scleral Icterus Neck: Supple, Trachea Midline, No JVD Lungs: Decreased Breath Sounds, Crackles Cardiovascular: Regular Rate, Regular Rhythm GI/Abdominal Exam: Soft, Non-Tender Extremities: Normal Inspection Neurological: No New Focal Deficit Psy/Mental Status: Alert, Normal Affect, Normal Mood - Patient Data Lab Results Last 24 hrs: Laboratory Results - last 24 hr 11/10/20 11/10/20 Range/Units 14:56 14:56 WBC 5.8 (4.5-11.0) K/uL RBC 2.78 L (4.30-5.90) M/uL Hgb 8.8 L (12.0-15.0) g/dL Hct 28.1 L (40.0-54.0) % MCV 101 H (80-98) fL MCH 32 H (27-31) pg MCHC 31 L (32-36) % Plt Count 113 L (150-400) K/uL Sodium 141 (140-148) mmol/L Potassium 4.3 (3.6-5.2) mmol/L Chloride 109 H (100-108) mmol/L Carbon Dioxide 21 (21-32) mmol/L Anion Gap 15.3 H (5.0-14.0) mmol/L BUN 39 H (7-18) mg/dL Creatinine 1.5 H (0.8-1.3) mg/dL Est Cr Clr Drug Dosing 32.25 mL/min Estimated GFR (MDRD) 44 L (>60) Glucose 109 H (74-106) mg/dL Calcium 8.5 (8.5-10.1) mg/dL Result Diagrams: 11/10/20 14:56 11/10/20 14:56 Jayden Results Last 24 hrs: Microbiology 11/09/20 15:35 Urine Culture - Preliminary Urine, Desir Cath (Indwelling) MIXED POSITIVE WARD DAY 1 11/09/20 15:26 Aerobic Blood Culture - Preliminary Blood - Venous NO GROWTH AFTER 1 DAY Anaerobic Blood Culture - Preliminary NO GROWTH AFTER 1 DAY 11/09/20 14:19 Aerobic Blood Culture - Preliminary Blood - Venous NO GROWTH AFTER 1 DAY Anaerobic Blood Culture - Preliminary NO GROWTH AFTER 1 DAY Sepsis Event Note - Evaluation Sepsis Screening Result: No Definite Risk - Focused Exam Vital Signs: Vital Signs Temp Pulse Pulse Resp BP BP Pulse Ox 11/11/20 11:00 97.2 F 66 18 109/58 L 97 11/11/20 08:59 84 140/73 11/11/20 07:00 98.6 F 84 18 140/73 96 11/11/20 03:19 100.4 F 84 20 117/66 95 - Problem List Review Problem List Initiated/Reviewed/Updated: Yes - My Orders Last 24 Hours: My Active Orders 11/10/20 18:15 Bladder Scan [RC] ONETIME 11/10/20 21:00 carvediloL [Coreg] 6.25 mg PO BID 11/11/20 12:30 Furosemide [Lasix] 20 mg PO DAILY 11/12/20 06:00 BASIC METABOLIC PANEL,BMP [CHEM] Routine CBC W/O DIFF,HEMOGRAM [HEME] Routine - Plan Plan:: ASSESSMENT AND PLAN - BILATERAL PNEUMONIA respiratory symptoms appear to have improved. Continued oxygen requirement. -Continue levofloxacin every 48 hours -Supplement oxygen as needed -Follow-up cultures PYURIA BACTERURIA Concern for complicated UTI. Urine culture is pending -Levofloxacin as above -Follow-up urine culture ACUTE KIDNEY INJURY ON TOP OF CHRONIC KIDNEY DISEASE STAGE III Renal function mildly elevated from baseline. Urine output has been low though it is improving. We will plan on continued maintenance IV fluids until patient is tolerating adequate oral intake. I also requested to resume patient's low- dose Lasix today which should aid with filtration, urine output. CHRONIC SYSTOLIC CONGESTIVE HEART FAILURE Patient reports some coughing but denies significant shortness of breath. He does continue to have an oxygen requirement. Continue maintenance IV fluids for now. Closely monitor I's/O's and discontinue fluids when patient is tolerating adequate oral intake. 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 He did have hematuria that led to obstruction of his Desir catheter requiring a change. I requested a bladder scan last evening which revealed less than 100 cc of urine in the bladder. Desir appears to be functioning properly. -Continue home medications and closely monitor urine output Maintenance issues - -DVT prophylaxis-mechanical with recent hematuria -GI prophylaxis-not indicated -Nutrition-regular -Desir catheter-chronic indwelling CODE STATUS -DNR/DNI
[2020-11-11] MEDS: Furosemide 20 MG Tab PO SCH (12:43)
[2020-11-11] MEDS ORDERED: Levofloxacin/Dextrose 5%-Water 750 MG in Premix Bag 1 BAG IV SCH (16:00)
[2020-11-11] MEDS: Melatonin 3 MG Tab PO SCH (20:15)
[2020-11-11] MEDS: atorvaSTATin 20 MG Tab PO SCH (20:15)
[2020-11-11] MEDS: Mirtazapine 15 MG Tab PO SCH (20:18)
[2020-11-11] MEDS: Latanoprost 0.005% Ophth Soln 2.5 ML Bottle EYEBOTH SCH (20:18)
[2020-11-12] MEDS ORDERED: Furosemide 20 MG/2 ML VIAL IVPUSH ONE (05:43)
[2020-11-12] MEDS ORDERED: Sodium Chloride 0.9% 1,000 ML IV SCH (05:45)
[2020-11-12] MEDS: Clopidogrel 75 MG Tab PO SCH (09:00)
[2020-11-12] MEDS: Pantoprazole 40 MG Tab.CR PO SCH (09:00)
[2020-11-12] MEDS: Tamsulosin 0.4 MG Cap.ER PO SCH (09:00)
[2020-11-12] MEDS: Furosemide 20 MG Tab PO SCH (09:00)
[2020-11-12] MEDS: Carvedilol 3.125 MG Tab PO SCH (09:01)
[2020-11-12] MEDS: Isosorbide Mononitrate 30 MG Tab.ER PO SCH (09:01)
[2020-11-12] MEDS: Aspirin 81 MG Tab.Chew PO SCH (09:01)
[2020-11-12] MEDS: Lactobacillus Rhamnosus GG (Probiotic) Cap PO SCH ×2 (09:02→21:26)
[2020-11-12] MEDS: Timolol Maleate 0.5% Ophth Soln 5 ML Bottle EYEBOTH SCH (09:02)
[2020-11-12] MEDS ORDERED: hydrALAZINE 20 MG/ML SDV IVPUSH PRN (10:53)
[2020-11-12] MEDS ORDERED: Carvedilol 3.125 MG Tab PO ONE (11:00)
--- NOTE | 2020-11-12 11:03 | PCM.PN ---
- General Info Date of Service: 11/12/20 Admission Dx/Problem (Free Text): Admission Diagnosis/Problem Admission Diagnosis/Problem Bilateral pneumonia Subjective Update: Urine output picked up with IV fluid administration. The patient awoke a and was wheezing. His dyspnea resolved with a DuoNeb and a dose of IV Lasix. Urine culture is growing out already mixed georges and blood cultures from admission have been negative. The patient reports steady improvement in symptoms from admission. Functional Status: Reports: Pain Controlled, Tolerating Diet - Review of Systems General: Denies: Fever, Night Sweats HEENT: Reports: No Symptoms Pulmonary: Reports: Shortness of Breath, Wheezing Cardiovascular: Denies: Chest Pain, Palpitations Gastrointestinal: Reports: No Symptoms Genitourinary: Reports: No Symptoms Musculoskeletal: Reports: No Symptoms Skin: Reports: No Symptoms Neurological: Reports: No Symptoms Psychiatric: Reports: No Symptoms - Patient Data Vitals - Most Recent: Last Vital Signs Temp 96.9 F 11/12/20 10:46 Pulse 81 11/12/20 10:46 Resp 18 11/12/20 10:46 BP 138/87 11/12/20 10:46 Pulse Ox 94 L 11/12/20 10:46 Weight - Most Recent: 139 lb 9.582 oz I&O - Last 24 Hours: Intake & Output 11/11/20 11/12/20 11/12/20 22:59 06:59 14:59 Intake Total 1451 1115 320 Output Total 225 1400 350 Balance 1226 -285 -30 Lab Results Last 24 Hours: Laboratory Results - last 24 hr 11/12/20 11/12/20 Range/Units 05:45 05:45 WBC 5.7 (4.5-11.0) K/uL RBC 3.21 L (4.30-5.90) M/uL Hgb 10.0 L (12.0-15.0) g/dL Hct 32.0 L (40.0-54.0) % MCV 100 H (80-98) fL MCH 31 (27-31) pg MCHC 31 L (32-36) % Plt Count 130 L (150-400) K/uL Sodium 146 (140-148) mmol/L Potassium 4.2 (3.6-5.2) mmol/L Chloride 113 H (100-108) mmol/L Carbon Dioxide 20 L (21-32) mmol/L Anion Gap 17.2 H (5.0-14.0) mmol/L BUN 27 H (7-18) mg/dL Creatinine 1.3 (0.8-1.3) mg/dL Est Cr Clr Drug Dosing 37.21 mL/min Estimated GFR (MDRD) 52 L (>60) Glucose 115 H (74-106) mg/dL Calcium 8.3 L (8.5-10.1) mg/dL Jayden Results Last 24 Hours: Microbiology 11/09/20 15:35 Urine Culture - Final Urine, Desir Cath (Indwelling) MIXED POSITIVE [place]ES DAY 2 11/09/20 15:26 Aerobic Blood Culture - Preliminary Blood - Venous NO GROWTH AFTER 2 DAYS Anaerobic Blood Culture - Preliminary NO GROWTH AFTER 2 DAYS 11/09/20 14:19 Aerobic Blood Culture - Preliminary Blood - Venous NO GROWTH AFTER 2 DAYS Anaerobic Blood Culture - Preliminary NO GROWTH AFTER 2 DAYS Med Orders - Current: Current Medications Acetaminophen (Acetaminophen 325 Mg Tab) 650 mg PO Q4H PRN PRN Reason: Pain (Mild 1-3)/fever Last Admin: 11/10/20 07:30 Dose: 650 mg Documented by: Hydrocodone Bitart/Acetaminophen (Acetaminophen/Hydrocodone 325-5 Mg Tab) 1 tab PO Q4H PRN PRN Reason: Pain (moderate 4-6) Albuterol (Albuterol 0.083% 2.5 Mg/3 Ml Neb Soln) 2.5 mg NEB Q4H PRN PRN Reason: Shortness Of Breath/wheezing Last Admin: 11/12/20 05:35 Dose: 2.5 mg Documented by: Aspirin (Aspirin 81 Mg Tab.Chew) 81 mg PO DAILY [facility] Last Admin: 11/12/20 09:01 Dose: 81 mg Documented by: Atorvastatin Calcium (Atorvastatin 20 Mg Tab) 80 mg PO BEDTIME [facility] Last Admin: 11/11/20 20:15 Dose: 80 mg Documented by: Capsaicin (Capsaicin 0.025% Crm 60 Gm Tube) 0 gm TOP Q2H PRN PRN Reason: joint pain Carvedilol (Carvedilol 3.125 Mg Tab) 12.5 mg PO BID [facility] Carvedilol (Carvedilol 3.125 Mg Tab) 6.25 mg PO ONETIME ONE Stop: 11/12/20 10:53 Clopidogrel Bisulfate (Clopidogrel 75 Mg Tab) 75 mg PO DAILY [facility] Last Admin: 11/12/20 09:00 Dose: 75 mg Documented by: Furosemide (Furosemide 20 Mg Tab) 20 mg PO DAILY [facility] Last Admin: 11/12/20 09:00 Dose: 20 mg Documented by: Hydralazine HCl (Hydralazine 20 Mg/Ml Sdv) 10 mg IVPUSH Q2H PRN PRN Reason: Hypertension Levofloxacin/Dextrose 750 mg/ (Premix) 150 mls @ 100 mls/hr IV Q48H [facility] Last Admin: 11/11/20 16:58 Dose: 100 mls/hr Documented by: Isosorbide Mononitrate (Isosorbide Mononitrate 30 Mg Tab.Er) 30 mg PO DAILY [facility] [place] Last Admin: 11/12/20 09:01 Dose: 30 mg Documented by: Lactobacillus Rhamnosus (Lactobacillus Rhamnosus Gg (Probiotic) Cap) 1 cap PO BID [facility] [place] Last Admin: 11/12/20 09:02 Dose: 1 cap Documented by: Latanoprost (Latanoprost 0.005% Ophth Soln 2.5 Ml Bottle) 0 ml EYEBOTH BEDTIME [facility] [place] Last Admin: 11/11/20 20:18 Dose: 1 drop Documented by: Lorazepam (Lorazepam 2 Mg/Ml Sdv) 0.5 mg IVPUSH Q4H PRN PRN Reason: Nausea/Vomiting Magnesium Hydroxide (Magnesium Hydroxide 400 Mg/5 Ml Susp 30 Ml Cup) 30 ml PO Q12H PRN PRN Reason: Constipation Melatonin (Melatonin 3 Mg Tab) 9 mg PO BEDTIME [facility] [place] Last Admin: 11/11/20 20:15 Dose: 9 mg Documented by: Mirtazapine (Mirtazapine 15 Mg Tab) 15 mg PO BEDTIME [facility] [place] Last Admin: 11/11/20 20:18 Dose: 15 mg Documented by: Ondansetron HCl (Ondansetron 4 Mg/2 Ml Sdv) 4 mg IV Q6H PRN PRN Reason: Nausea/Vomiting Ondansetron HCl (Ondansetron 4 Mg Tab.Dis) 4 mg PO Q6H PRN PRN Reason: Nausea able to take PO Pantoprazole Sodium (Pantoprazole 40 Mg Tab.Cr) 40 mg PO ACBREAKFAST [facility] Last Admin: 11/12/20 09:00 Dose: 40 mg Documented by: Senna/Docusate Sodium (Docusate Sodium/Sennosides 50-8.6 Mg Tab) 2 tab PO DAILY [facility] [place] Last Admin: 11/12/20 09:00 Dose: 2 tab Documented by: Senna/Docusate Sodium (Docusate Sodium/Sennosides 50-8.6 Mg Tab) 1 tab PO BID PRN PRN Reason: Constipation Sodium Chloride (Sodium Chloride 0.9% 10 Ml Syringe) 10 ml FLUSH ASDIRECTED PRN PRN Reason: Keep Vein Open Last Admin: 11/09/20 14:33 Dose: 10 ml Documented by: Tamsulosin HCl (Tamsulosin 0.4 Mg Cap.Er) 0.4 mg PO DAILY [facility] [place] Last Admin: 11/12/20 09:00 Dose: 0.4 mg Documented by: Timolol Maleate (Timolol Maleate 0.5% Ophth Soln 5 Ml Bottle) 0 ml EYEBOTH DAILY [facility] [place] Last Admin: 11/12/20 09:02 Dose: 1 drop Documented by: Discontinued Medications Acetaminophen (Acetaminophen 325 Mg Tab) 650 mg PO NOW ONE Stop: 11/09/20 14:08 Last Admin: 11/09/20 14:29 Dose: 650 mg Documented by: Carvedilol (Carvedilol 12.5 Mg Tab) 12.5 mg PO BIDAC [facility] Last Admin: 11/10/20 10:17 Dose: 12.5 mg Documented by: Carvedilol (Carvedilol 3.125 Mg Tab) 6.25 mg PO BID [facility] Last Admin: 11/12/20 09:01 Dose: 6.25 mg Documented by: Furosemide (Furosemide 20 Mg/2 Ml Vial) 20 mg IVPUSH ONETIME ONE Stop: 11/12/20 05:44 Last Admin: 11/12/20 05:45 Dose: 20 mg Documented by: Lactated Ringer's (Ringers, Lactated) 1,000 mls @ 1,000 mls/hr IV BOLUS ONE Stop: 11/09/20 15:07 Last Admin: 11/09/20 14:15 Dose: 1,000 mls/hr Documented by: Levofloxacin/Dextrose 750 mg/ (Premix) 150 mls @ 100 mls/hr IV ONETIME ONE Stop: 11/09/20 16:56 Last Admin: 11/09/20 15:40 Dose: 100 mls/hr Documented by: Lactated Ringer's (Ringers, Lactated) 1,000 mls @ 150 mls/hr IV ASDIRECTED [facility] Last Admin: 11/09/20 15:38 Dose: 150 mls/hr Documented by: Sodium Chloride (Normal Saline) 1,000 mls @ 100 mls/hr IV ASDIRECTED [facility] Last Admin: 11/10/20 09:18 Dose: 100 mls/hr Documented by: Sodium Chloride (Normal Saline) 500 mls @ 250 mls/hr IV .BOLUS ONE Stop: 11/10/20 05:53 Last Admin: 11/10/20 04:01 Dose: 250 mls/hr Documented by: Sodium Chloride (Normal Saline) 1,000 mls @ 75 mls/hr IV ASDIRECTED [facility] Last Admin: 11/10/20 16:22 Dose: 75 mls/hr Documented by: Sodium Chloride (Normal Saline) 1,000 mls @ 999 mls/hr IV ONETIME ONE Stop: 11/10/20 16:00 Last Admin: 11/10/20 15:10 Dose: 999 mls/hr Documented by: Sodium Chloride (Normal Saline) 500 mls @ 250 mls/hr IV .BOLUS ONE Stop: 11/10/20 20:30 Last Admin: 11/10/20 18:35 Dose: 250 mls/hr Documented by: Sodium Chloride (Normal Saline) 1,000 mls @ 100 mls/hr IV ASDIRECTED [facility] Last Admin: 11/11/20 22:38 Dose: 125 mls/hr Documented by: Sodium Chloride (Normal Saline) 1,000 mls @ 50 mls/hr IV ASDIRECTED [facility] Potassium Chloride (Potassium Chloride 20 Meq Tab.Er) 40 meq PO ONETIME ONE Stop: 11/09/20 17:31 Last Admin: 11/09/20 17:22 Dose: 40 meq Documented by: Timolol Maleate (Timolol Maleate 0.5% Ophth Soln 5 Ml Bottle) 0 ml EYEBOTH BEDTIME [facility] Last Admin: 11/09/20 21:35 Dose: Not Given Documented by: - Exam Quality Assessment: Supplemental Oxygen, Urine Catheter General: Alert, Oriented, Cooperative HEENT: No: Scleral Icterus Neck: Supple, Trachea Midline Lungs: Decreased Breath Sounds Cardiovascular: Regular Rate, Regular Rhythm GI/Abdominal Exam: Soft, Non-Tender Extremities: Normal Inspection Neurological: No New Focal Deficit Psy/Mental Status: Alert, Normal Affect, Normal Mood - Patient Data Lab Results Last 24 hrs: Laboratory Results - last 24 hr 11/12/20 11/12/20 Range/Units 05:45 05:45 WBC 5.7 (4.5-11.0) K/uL RBC 3.21 L (4.30-5.90) M/uL Hgb 10.0 L (12.0-15.0) g/dL Hct 32.0 L (40.0-54.0) % MCV 100 H (80-98) fL MCH 31 (27-31) pg MCHC 31 L (32-36) % Plt Count 130 L (150-400) K/uL Sodium 146 (140-148) mmol/L Potassium 4.2 (3.6-5.2) mmol/L Chloride 113 H (100-108) mmol/L Carbon Dioxide 20 L (21-32) mmol/L Anion Gap 17.2 H (5.0-14.0) mmol/L BUN 27 H (7-18) mg/dL Creatinine 1.3 (0.8-1.3) mg/dL Est Cr Clr Drug Dosing 37.21 mL/min Estimated GFR (MDRD) 52 L (>60) Glucose 115 H (74-106) mg/dL Calcium 8.3 L (8.5-10.1) mg/dL Result Diagrams: 11/12/20 05:45 11/12/20 05:45 Jayden Results Last 24 hrs: Microbiology 11/09/20 15:35 Urine Culture - Final Urine, Desir Cath (Indwelling) MIXED POSITIVE [place]OR[place]ES DAY 2 11/09/20 15:26 Aerobic Blood Culture - Preliminary Blood - Venous NO GROWTH AFTER 2 DAYS Anaerobic Blood Culture - Preliminary NO GROWTH AFTER 2 DAYS 11/09/20 14:19 Aerobic Blood Culture - Preliminary Blood - Venous NO GROWTH AFTER 2 DAYS Anaerobic Blood Culture - Preliminary NO GROWTH AFTER 2 DAYS Sepsis Event Note - Evaluation Sepsis Screening Result: No Definite Risk - Focused Exam Vital Signs: Vital Signs Temp Pulse Pulse Resp BP BP BP 11/12/20 10:46 96.9 F 81 18 138/87 11/12/20 09:01 99 160/99 H 11/12/20 07:00 97.3 F 99 20 160/99 H 11/12/20 06:18 180/100 H 11/12/20 05:42 98.1 F 112 H 25 H 206/120 H 11/12/20 05:30 120 H 24 H 201/112 H 11/11/20 23:07 97.8 F 80 16 140/83 Pulse Ox 11/12/20 10:46 94 L 11/12/20 09:01 11/12/20 07:00 92 L 11/12/20 06:18 11/12/20 05:42 94 L 11/12/20 05:30 88 L 11/11/20 23:07 93 L - Problem List Review Problem List Initiated/Reviewed/Updated: Yes - My Orders Last 24 Hours: My Active Orders 11/11/20 12:30 Furosemide [Lasix] 20 mg PO DAILY 11/12/20 10:52 carvediloL [Coreg] 6.25 mg PO ONETIME ONE 11/12/20 10:53 hydrALAZINE [Apresoline] 10 mg IVPUSH Q2H PRN 11/12/20 21:00 carvediloL [Coreg] 12.5 mg PO BID - Plan Plan:: ASSESSMENT AND PLAN - BILATERAL PNEUMONIA Respiratory distress this morning likely from some mild fluid overload. Respiratory status back to near baseline. 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 Patient is tolerating oral intake and IV fluids have been discontinued. He has been resumed on his usual dosing of Lasix. ACUTE ON CHRONIC SYSTOLIC CONGESTIVE HEART FAILURE Secondary to IV fluids received in treatment of infection. Patient received an additional dose of Lasix today. IV fluids have been discontinued. Continue to wean oxygen as able to maintain appropriate saturations. HYPERTENSION Patient's Coreg was decreased initially due to borderline blood pressures. With patient's episode of significant dyspnea this morning, his blood pressure was quite elevated. His Coreg was increased back to 12.5 mg twice daily with an additional dose of 6.25 mg this morning. I also requested hydralazine if needed for significant blood pressure elevation. BPH WITH URINARY OBSTRUCTION PYURIA BACTERURIA No evidence of UTI on culture. Desir catheter last exchanged on 11/08. He did have hematuria that led to obstruction of his Desir catheter requiring a change. -Continue home medications and closely monitor urine output Maintenance issues - -DVT prophylaxis-mechanical with recent hematuria -Nutrition-regular -Desir catheter-chronic indwelling CODE STATUS -DNR/DNI DISPOSITION Continue inpatient monitoring and care today. Patient has been moving relatively well. Consider discharge patient back to home in the next 1 to 2 days.
[2020-11-12] MEDS: Melatonin 3 MG Tab PO SCH (21:26)
[2020-11-12] MEDS: atorvaSTATin 20 MG Tab PO SCH (21:26)
[2020-11-12] MEDS: Carvedilol 12.5 MG Tab PO SCH (21:27)
[2020-11-12] MEDS: Latanoprost 0.005% Ophth Soln 2.5 ML Bottle EYEBOTH SCH (21:27)
[2020-11-12] MEDS: Mirtazapine 15 MG Tab PO SCH (21:27)
[2020-11-12] MEDS ORDERED: Calcium Carbonate 500 MG Tab.Chew PO PRN (21:35)
[2020-11-12] MEDS: guaiFENesin/Dextromethorphan 100-10 MG/5 ML Soln 10 ML Cup PO PRN (21:50)
[2020-11-13] MEDS: guaiFENesin/Dextromethorphan 100-10 MG/5 ML Soln 10 ML Cup PO PRN (02:45)
[2020-11-13] MEDS: Aspirin 81 MG Tab.Chew PO SCH (09:40)
[2020-11-13] MEDS: Carvedilol 12.5 MG Tab PO SCH (09:40)
[2020-11-13] MEDS: Isosorbide Mononitrate 30 MG Tab.ER PO SCH (09:40)
[2020-11-13] MEDS: Lactobacillus Rhamnosus GG (Probiotic) Cap PO SCH (09:41)
[2020-11-13] MEDS: Furosemide 20 MG Tab PO SCH (09:41)
[2020-11-13] MEDS: Pantoprazole 40 MG Tab.CR PO SCH (09:41)
[2020-11-13] MEDS: Clopidogrel 75 MG Tab PO SCH (09:41)
[2020-11-13] MEDS: Timolol Maleate 0.5% Ophth Soln 5 ML Bottle EYEBOTH SCH (09:41)
[2020-11-13] MEDS: Tamsulosin 0.4 MG Cap.ER PO SCH (09:41)
--- NOTE | 2020-11-13 11:33 | PCM.DCSUM1 ---
Discharge Summary - Hospital Course Free Text/Narrative:: 84-year-old male admitted on 11/09 with symptoms secondary to bilateral pneumonia. - Discharge Data Discharge Date: 11/13/20 Discharge Disposition: Home, Self-Care 01 Condition: Fair - Referral to Home Health Primary Care Physician: PCP None - Patient Summary/Data Consults: Consultations 11/09/20 17:45 Consult to Spiritual Care [CONS] Routine Special Instructions: pt requests 11/10/20 07:00 PT Evaluation and Treatment [CONS] Routine Please Evaluate and Treat. PT Reason for Consult: Strengthening This query below is only for informational purposes and is not editable. Hospital Course: Patient was initiated with treatment with Levaquin for bilateral pneumonia and concern for possible complicated urinary tract infection. The patient's blood and urine cultures from admission had no significant growth. His presenting symptoms were deemed secondary to pneumonia. He was treated with renally dosed Levaquin over the course of hospitalization and with improvement of his renal function to baseline, he will be continued on daily Levaquin at discharge for an additional several days to complete his antibiotic course. The patient was appropriate for discharge home on 11/13. - Patient Instructions Diet: Regular Diet as Tolerated Activity: As Tolerated Showering/Bathing: May Shower Notify Provider of: Fever, Increased Pain - Discharge Plan *PRESCRIPTION DRUG MONITORING PROGRAM REVIEWED*: Not Applicable *COPY OF PRESCRIPTION DRUG MONITORING REPORT IN PATIENT [place]: Not Applicable Prescriptions/Med Rec: Levofloxacin 750 mg PO DAILY #3 tablet Home Medications: Home Meds Aspirin 81 mg PO DAILY 08/05/20 [History] Bimatoprost [Lumigan 0.01% Ophth Soln] 1 drop EYEBOTH DAILY 08/05/20 [History] Capsaicin [Zostrix 0.025% Crm] 1 dose TOP ASDIRECTED 08/05/20 [History] Furosemide [Lasix] 20 mg PO DAILY 08/05/20 [History] Hydrocodone/Acetaminophen [Hydrocodon-Acetaminophen 5-325] 1 tab PO ASDIRECTED PRN 08/05/20 [History] Nitroglycerin 0.4 mg SL ASDIRECTED 08/05/20 [History] Omeprazole 40 mg PO DAILY 08/05/20 [History] Ondansetron [Zofran ODT] 4 mg PO ASDIRECTED PRN 08/05/20 [History] Sennosides/Docusate Sodium [Senna-Docusate Sodium Tablet] 2 tab PO DAILY 08/05/20 [History] Timolol Maleate/PF [Timolol Maleate 0.5% Eye Drop] 1 dose EYEBOTH BEDTIME 08/05/20 [History] Clopidogrel [Plavix] 75 mg PO DAILY #30 tablet 08/08/20 [Rx] Isosorbide Mononitrate [Isosorbide Mononitrate ER] 30 mg PO DAILY #30 08/08/20 [ Rx] Mirtazapine 15 mg PO BEDTIME #30 08/08/20 [Rx] Tamsulosin [Flomax] 0.4 mg PO DAILY #30 08/08/20 [Rx] atorvaSTATin Calcium [Atorvastatin Calcium] 80 mg PO BEDTIME #30 08/08/20 [Rx] carvediloL [Coreg] 12.5 mg PO BIDAC #60 tablet 08/08/20 [Rx] Sulfamethoxazole/Trimethoprim [Bactrim Ds Tablet] 1 each PO DAILY 11/09/20 [History] Levofloxacin 750 mg PO DAILY #3 tablet 11/13/20 [Rx] Forms: ED Department Discharge Referrals: Fabrizio Patel NP [Ordering Only Provider] - 11/14/20 8:40 am (Please arrive 15 minutes early to register for your appointment.) - Discharge Summary/Plan Comment DC Time >30 min.: Yes (31 minutes) - Patient Data Vitals - Most Recent: Last Vital Signs Temp 96.9 F 11/13/20 09:54 Pulse 108 H 11/13/20 09:40 Resp 16 11/13/20 09:54 BP 161/95 H 11/13/20 09:54 Pulse Ox 93 L 11/13/20 09:54 Weight - Most Recent: 139 lb 9.582 oz I&O - Last 24 hours: Intake & Output 11/12/20 11/13/20 11/13/20 22:59 06:59 14:59 Intake Total 680 Output Total 1500 600 200 Balance -820 -600 -200 Lab Results - Last 24 hrs: Laboratory Results - last 24 hr 11/13/20 Range/Units 05:30 Sodium 147 (140-148) mmol/L Potassium 3.2 L (3.6-5.2) mmol/L Chloride 112 H (100-108) mmol/L Carbon Dioxide 25 (21-32) mmol/L Anion Gap 13.2 (5.0-14.0) mmol/L BUN 25 H (7-18) mg/dL Creatinine 1.1 (0.8-1.3) mg/dL Est Cr Clr Drug Dosing 43.97 mL/min Estimated GFR (MDRD) > 60 (>60) Glucose 95 (74-106) mg/dL Calcium 8.3 L (8.5-10.1) mg/dL JUDSON Results - Last 24 hrs: Microbiology 11/09/20 15:26 Aerobic Blood Culture - Preliminary Blood - Venous NO GROWTH AFTER 3 DAYS Anaerobic Blood Culture - Preliminary NO GROWTH AFTER 3 DAYS 11/09/20 14:19 Aerobic Blood Culture - Preliminary Blood - Venous NO GROWTH AFTER 3 DAYS Anaerobic Blood Culture - Preliminary NO GROWTH AFTER 3 DAYS Med Orders - Current: Current Medications Discontinued Medications Acetaminophen (Acetaminophen 325 Mg Tab) 650 mg PO NOW ONE Stop: 11/09/20 14:08 Last Admin: 11/09/20 14:29 Dose: 650 mg Documented by: Acetaminophen (Acetaminophen 325 Mg Tab) 650 mg PO Q4H PRN PRN Reason: Pain (Mild 1-3)/fever Last Admin: 11/10/20 07:30 Dose: 650 mg Documented by: Hydrocodone Bitart/Acetaminophen (Acetaminophen/Hydrocodone 325-5 Mg Tab) 1 tab PO Q4H PRN PRN Reason: Pain (moderate 4-6) Albuterol (Albuterol 0.083% 2.5 Mg/3 Ml Neb Soln) 2.5 mg NEB Q4H PRN PRN Reason: Shortness Of Breath/wheezing Last Admin: 11/12/20 05:35 Dose: 2.5 mg Documented by: Aspirin (Aspirin 81 Mg Tab.Chew) 81 mg PO DAILY [facility] Last Admin: 11/13/20 09:40 Dose: 81 mg Documented by: Atorvastatin Calcium (Atorvastatin 20 Mg Tab) 80 mg PO BEDTIME [facility] Last Admin: 11/12/20 21:26 Dose: 80 mg Documented by: Calcium Carbonate/Glycine (Calcium Carbonate 500 Mg Tab.Chew) 1,000 mg PO Q2H PRN PRN Reason: Heartburn Last Admin: 11/12/20 21:50 Dose: 1,000 mg Documented by: Capsaicin (Capsaicin 0.025% Crm 60 Gm Tube) 0 gm TOP Q2H PRN PRN Reason: joint pain [facility] ([facility] 12.5 Mg Tab) [facility] Admin: 11/10/20 10:17 Dose: 12.5 mg Documented by: Carvedilol (Carvedilol 3.125 Mg Tab) 6.25 mg PO BID [facility] Last Admin: 11/12/20 09:01 Dose: 6.25 mg Documented by: Carvedilol (Carvedilol 12.5 Mg Tab) 12.5 mg PO BID [facility] Last Admin: 11/13/20 09:40 Dose: 12.5 mg Documented by: Carvedilol (Carvedilol 3.125 Mg Tab) 6.25 mg PO ONETIME ONE Stop: 11/12/20 11:01 Last Admin: 11/12/20 11:32 Dose: 6.25 mg Documented by: Clopidogrel Bisulfate (Clopidogrel 75 Mg Tab) 75 mg PO DAILY [facility] Last Admin: 11/13/20 09:41 Dose: 75 mg Documented by: Furosemide (Furosemide 20 Mg Tab) 20 mg PO DAILY [facility] Last Admin: 11/13/20 09:41 Dose: 20 mg Documented by: Furosemide (Furosemide 20 Mg/2 Ml Vial) 20 mg IVPUSH ONETIME ONE Stop: 11/12/20 05:44 Last Admin: 11/12/20 05:45 Dose: 20 mg Documented by: Guaifenesin/Dextromethorphan (Guaifenesin/Dextromethorphan 100-10 Mg/5 Ml Soln 10 Ml Cup) 10 ml PO Q4H PRN PRN Reason: Cough Last Admin: 11/13/20 02:45 Dose: 10 ml Documented by: Hydralazine HCl (Hydralazine 20 Mg/Ml Sdv) 10 mg IVPUSH Q2H PRN PRN Reason: Hypertension Lactated Ringer's (Ringers, Lactated) 1,000 mls @ 1,000 mls/hr IV BOLUS ONE Stop: 11/09/20 15:07 Last Admin: 11/09/20 14:15 Dose: 1,000 mls/hr Documented by: Levofloxacin/Dextrose 750 mg/ (Premix) 150 mls @ 100 mls/hr IV ONETIME ONE Stop: 11/09/20 16:56 Last Admin: 11/09/20 15:40 Dose: 100 mls/hr Documented by: Lactated Ringer's (Ringers, Lactated) 1,000 mls @ 150 mls/hr IV ASDIRECTED [facility] Last Admin: 11/09/20 15:38 Dose: 150 mls/hr Documented by: Sodium Chloride (Normal Saline) 1,000 mls @ 100 mls/hr IV ASDIRECTED [facility] Last Admin: 11/10/20 09:18 Dose: 100 mls/hr Documented by: Levofloxacin/Dextrose 750 mg/ (Premix) 150 mls @ 100 mls/hr IV Q48H [facility] Last Admin: 11/11/20 16:58 Dose: 100 mls/hr Documented by: Sodium Chloride (Normal Saline) 500 mls @ 250 mls/hr IV .BOLUS ONE Stop: 11/10/20 05:53 Last Admin: 11/10/20 04:01 Dose: 250 mls/hr Documented by: Sodium Chloride (Normal Saline) 1,000 mls @ 75 mls/hr IV ASDIRECTED [facility] Last Admin: 11/10/20 16:22 Dose: 75 mls/hr Documented by: Sodium Chloride (Normal Saline) 1,000 mls @ 999 mls/hr IV ONETIME ONE Stop: 11/10/20 16:00 Last Admin: 11/10/20 15:10 Dose: 999 mls/hr Documented by: Sodium Chloride (Normal Saline) 500 mls @ 250 mls/hr IV .BOLUS ONE Stop: 11/10/20 20:30 Last Admin: 11/10/20 18:35 Dose: 250 mls/hr Documented by: Sodium Chloride (Normal Saline) 1,000 mls @ 100 mls/hr IV ASDIRECTED [facility] Last Admin: 11/11/20 22:38 Dose: 125 mls/hr Documented by: Sodium Chloride (Normal Saline) 1,000 mls @ 50 mls/hr IV ASDIRECTED [facility] Isosorbide Mononitrate (Isosorbide Mononitrate 30 Mg Tab.Er) 30 mg PO DAILY [facility] Last Admin: 11/13/20 09:40 Dose: 30 mg Documented by: Lactobacillus Rhamnosus (Lactobacillus Rhamnosus Gg (Probiotic) Cap) 1 cap PO BID [facility] Last Admin: 11/13/20 09:41 Dose: 1 cap Documented by: Latanoprost (Latanoprost 0.005% Ophth Soln 2.5 Ml Bottle) 0 ml EYEBOTH BEDTIME [facility] Last Admin: 11/12/20 21:27 Dose: 1 drop Documented by: Lorazepam (Lorazepam 2 Mg/Ml Sdv) 0.5 mg IVPUSH Q4H PRN PRN Reason: Nausea/Vomiting Magnesium Hydroxide (Magnesium Hydroxide 400 Mg/5 Ml Susp 30 Ml Cup) 30 ml PO Q12H PRN PRN Reason: Constipation Melatonin (Melatonin 3 Mg Tab) 9 mg PO BEDTIME [facility] Last Admin: 11/12/20 21:26 Dose: 9 mg Documented by: Mirtazapine (Mirtazapine 15 Mg Tab) 15 mg PO BEDTIME [facility] Last Admin: 11/12/20 21:27 Dose: 15 mg Documented by: Ondansetron HCl (Ondansetron 4 Mg/2 Ml Sdv) 4 mg IV Q6H PRN PRN Reason: Nausea/Vomiting Ondansetron HCl (Ondansetron 4 Mg Tab.Dis) 4 mg PO Q6H PRN PRN Reason: Nausea able to take PO Pantoprazole Sodium (Pantoprazole 40 Mg Tab.Cr) 40 mg PO ACBREAKFAST [facility] Last Admin: 11/13/20 09:41 Dose: 40 mg Documented by: Potassium Chloride (Potassium Chloride 20 Meq Tab.Er) 40 meq PO ONETIME ONE Stop: 11/09/20 17:31 Last Admin: 11/09/20 17:22 Dose: 40 meq Documented by: Senna/Docusate Sodium (Docusate Sodium/Sennosides 50-8.6 Mg Tab) 2 tab PO DAILY [facility] Last Admin: 11/13/20 09:40 Dose: 2 tab Documented by: Senna/Docusate Sodium (Docusate Sodium/Sennosides 50-8.6 Mg Tab) 1 tab PO BID PRN PRN Reason: Constipation Sodium Chloride (Sodium Chloride 0.9% 10 Ml Syringe) 10 ml FLUSH ASDIRECTED PRN PRN Reason: Keep Vein Open Last Admin: 11/09/20 14:33 Dose: 10 ml Documented by: Tamsulosin HCl (Tamsulosin 0.4 Mg Cap.Er) 0.4 mg PO DAILY [facility] Last Admin: 11/13/20 09:41 Dose: 0.4 mg Documented by: Timolol Maleate (Timolol Maleate 0.5% Ophth Soln 5 Ml Bottle) 0 ml EYEBOTH BEDTIME [facility] Last Admin: 11/09/20 21:35 Dose: Not Given Documented by: Timolol Maleate (Timolol Maleate 0.5% Ophth Soln 5 Ml Bottle) 0 ml EYEBOTH DAILY [facility] Last Admin: 11/13/20 09:41 Dose: 1 drop Documented by: *Q Meaningful Use (DIS) - VTE *Q VTE Pharmacological Contraindications *Q: Risk of Bleeding (hematuria yesterday)
== END 2020-11-13 11:14 | disposition home or self-care (01) | DRG 871 ==
LOC: JP.ED 13:50 → JP.MS 16:17
PROVIDERS: ADMIT Internal Medicine; ATTEND Hospitalist
DX: A41.9 Sepsis, unspecified organism (principal); N39.0 Urinary tract infection, site not specified; R86.0 Abnormal level of enzymes in specimens from male genital organs; J96.01 Acute respiratory failure with hypoxia; I11.0 Hypertensive heart disease with heart failure; I50.9 Heart failure, unspecified; J18.9 Pneumonia, unspecified organism; N30.00 Acute cystitis without hematuria; K21.9 Gastro-esophageal reflux disease without esophagitis; N40.0 Benign prostatic hyperplasia without lower urinary tract symptoms; Z93.6 Other artificial openings of urinary tract status; Z79.02 Long term (current) use of antithrombotics/antiplatelets; I50.22 Chronic systolic (congestive) heart failure; N13.8 Other obstructive and reflux uropathy; I13.0 Hypertensive heart and chronic kidney disease with heart failure and stage 1 through stage 4 chronic kidney disease, or unspecified chronic kidney disease; N17.9 Acute kidney failure, unspecified; R65.20 Severe sepsis without septic shock; N40.1 Benign prostatic hyperplasia with lower urinary tract symptoms; Z66 Do not resuscitate; H54.7 Unspecified visual loss; I25.10 Atherosclerotic heart disease of native coronary artery without angina pectoris; N18.30 Chronic kidney disease, stage 3 unspecified; Z20.822 Contact with and (suspected) exposure to COVID-19; Z79.82 Long term (current) use of aspirin; Z79.899 Other long term (current) drug therapy; Z98.890 Other specified postprocedural states; I25.2 Old myocardial infarction
CPT/HCPCS: 0241U; 36415; 51798; 71045; 80048; 81001; 83605; 85027; 87040; 87086; 96365; 97110; 97116; 97162; 97530; 99285; 99222; 99232; 99239; A9270-GY; J1940; J1956; J7030; J7040; J7120

== ENCOUNTER 2020-11-21 09:36 | Emergency (ER) | payer MEDICARE, BC ==
--- NOTE | 2020-11-21 10:30 | EDM.PDOC ---
ED HPI GENERAL MEDICAL PROBLEM - General Chief Complaint: Respiratory Problem Stated Complaint: PNEUMONIA NOT GETTING BETTER Time Seen by Provider: 11/21/20 10:15 Source of Information: Reports: Patient, Family, Old Records, RN History Limitations: Reports: No Limitations - History of Present Illness INITIAL COMMENTS - FREE TEXT/NARRATIVE: 85 yo male 1/2 ppd smoker was discharged last week from our hospital for pneumonia. He has not followed up in the clinic since discharge. He did finish his course of Levaquin that he was discharged on. He is not interested in quitting smoking. He presents to the ER for mild SOB not associated with fever. He has a chronic cough that is occasionally productive. His SOB does get worse with lying down, and he does have a pHx of CHF. He or a family member called the clinic today regarding his sx's and was told to go to the ER. No one from the clinic notified us of this referral. Sx's have been present for about 4 days, he was getting less SOB for awhile after discharge, now worse again. Thinks he has pneumonia. No CP. Onset: Gradual Onset Date: 11/18/20 Duration: Day(s): (4), Getting Worse Location: Reports: Chest Quality: Reports: Other (no pain) Severity: Mild Improves with: Reports: Rest Worsens with: Reports: Other (lying), Movement Context: Reports: Other (See HPI) Associated Symptoms: Reports: Cough (chronic), Shortness of Breath (mild). Denies: Fever/Chills Treatments PATIENT CARE COORDINATOR: Reports: Other (see below) (see HPI) - Related Data Allergies Allergy/AdvReac Type Severity Reaction Status Date / Time No Known Allergies Allergy Verified 11/21/20 10:05 Home Meds: Home Meds Aspirin 81 mg PO DAILY 08/05/20 [History] Bimatoprost [Lumigan 0.01% Ophth Soln] 1 drop EYEBOTH DAILY 08/05/20 [History] Capsaicin [Zostrix 0.025% Crm] 1 dose TOP ASDIRECTED 08/05/20 [History] Furosemide [Lasix] 20 mg PO DAILY 08/05/20 [History] Hydrocodone/Acetaminophen [Hydrocodon-Acetaminophen 5-325] 1 tab PO ASDIRECTED PRN 08/05/20 [History] Nitroglycerin 0.4 mg SL ASDIRECTED 08/05/20 [History] Omeprazole 40 mg PO DAILY 08/05/20 [History] Ondansetron [Zofran ODT] 4 mg PO ASDIRECTED PRN 08/05/20 [History] Sennosides/Docusate Sodium [Senna-Docusate Sodium Tablet] 2 tab PO DAILY 08/05/20 [History] Timolol Maleate/PF [Timolol Maleate 0.5% Eye Drop] 1 dose EYEBOTH BEDTIME 08/05/20 [History] Clopidogrel [Plavix] 75 mg PO DAILY #30 tablet 08/08/20 [Rx] Isosorbide Mononitrate [Isosorbide Mononitrate ER] 30 mg PO DAILY #30 08/08/20 [Rx] Mirtazapine 15 mg PO BEDTIME #30 08/08/20 [Rx] Tamsulosin [Flomax] 0.4 mg PO DAILY #30 08/08/20 [Rx] atorvaSTATin Calcium [Atorvastatin Calcium] 80 mg PO BEDTIME #30 08/08/20 [Rx] carvediloL [Coreg] 12.5 mg PO BIDAC #60 tablet 08/08/20 [Rx] lisinopriL [Lisinopril] 5 mg PO DAILY #30 tablet 11/21/20 [Rx] Past Medical History HEENT History: Reports: Impaired Vision Cardiovascular History: Reports: CAD, Heart Failure, Hypertension, [place] Gastrointestinal History: Reports: GERD Genitourinary History: Reports: BPH, Other (See Below) Other Genitourinary History: Chronic sommer cath since May 2020. Musculoskeletal History: Reports: Fracture, Other (See Below) Other Musculoskeletal History: shoulder dislocation, fractured ribs. 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 - Infectious Disease History Infectious Disease History: Reports: Influenza, Measles, Mumps, Rubella - Past Surgical History HEENT Surgical History: Reports: Tonsillectomy GI Surgical History: Reports: Hernia Repair/Other Social & Family History - Tobacco Use Tobacco Use Status *Q: Current Every Day Tobacco User Years of Tobacco use: 70 Packs/Tins Daily: 0.5 - Caffeine Use Caffeine Use: Reports: Coffee Other Caffeine Use: 3 cpd - Recreational Drug Use Recreational Drug Use: No ED ROS GENERAL - Review of Systems Review Of Systems: See Below Constitutional: Denies: Fever, Chills HEENT: Reports: No Symptoms Respiratory: Reports: Shortness of Breath (mild), Cough (chronic), Sputum (occasionally, not worse than baseline). Denies: Wheezing, Pleuritic Chest Pain, Hemoptysis Cardiovascular: Reports: No Symptoms. Denies: Chest Pain Endocrine: Reports: No Symptoms GI/Abdominal: Reports: No Symptoms : Reports: No Symptoms Musculoskeletal: Reports: No Symptoms Skin: Reports: No Symptoms Neurological: Reports: No Symptoms ED EXAM, GENERAL - Physical Exam Exam: See Below Exam Limited By: No Limitations General Appearance: Alert, No Apparent Distress, Thin Eye Exam: Bilateral Eye: Normal Inspection Ears: Normal External Exam, Normal Canal, Hearing Loss Ear Exam: Bilateral Ear: Auricle Normal, Canal Normal Nose: Normal Inspection, No Blood Throat/Mouth: Normal Inspection, Normal Lips, Normal Oropharynx, Normal Voice, No Airway Compromise Head: Atraumatic, Normocephalic Neck: Normal Inspection Respiratory/Chest: Decreased Breath Sounds, Other (mild tachypnea). No: Lungs Clear, Normal Breath Sounds, No Accessory Muscle Use, Respiratory Distress, Wheezing Cardiovascular: Regular Rate, Rhythm, Other (trace edema of the RLE below the knees and above the sock line. ). No: No Edema GI/Abdominal: Normal Bowel Sounds, Soft, Non-Tender, No Distention Back Exam: Normal Inspection. No: CVA Tenderness (R), CVA Tenderness (L) Extremities: Normal Inspection, Normal Range of Motion, Non-Tender, Pedal Edema (RLE below the knee, pits on pressure). No: No Pedal Edema Neurological: Alert, Oriented, CN II-XII Intact, Normal Cognition, No Motor/Sensory Deficits Psychiatric: Normal Affect, Normal Mood Skin Exam: Warm, Dry, Intact, Normal Color, No Rash Course - Vital Signs Last Recorded V/S: Last Vital Signs Temp 36.4 C 11/21/20 10:08 Pulse 88 11/21/20 12:12 Resp 26 H 11/21/20 12:08 BP 149/95 H 11/21/20 12:13 Pulse Ox 93 L 11/21/20 12:08 - Orders/Labs/Meds Orders: Active Orders 24 hr Category Date Time Status RT Aerosol Therapy [RC] ASDIRECTED Care 11/21/20 10:24 Active Sodium Chloride 0.9% [Saline Flush] Med 11/21/20 11:16 Active 10 ml FLUSH ASDIRECTED PRN Saline Lock Insert [OM.PC] Routine Oth 11/21/20 11:16 Ordered Medication Orders Sodium Chloride (Sodium Chloride 0.9% 10 Ml Syringe) 10 ml FLUSH ASDIRECTED PRN PRN Reason: Keep Vein Open Last Admin: 11/21/20 11:54 Dose: 10 ml Documented by: ENOCH Labs: Laboratory Tests 11/21/20 11/21/20 11/21/20 Range/Units 10:27 10:35 10:35 WBC 8.2 (4.5-11.0) K/uL RBC 3.33 L (4.30-5.90) M/uL Hgb 10.4 L (12.0-15.0) g/dL Hct 32.6 L (40.0-54.0) % MCV 98 (80-98) fL MCH 31 (27-31) pg MCHC 32 (32-36) % Plt Count 257 (150-400) K/uL Sodium 147 (140-148) mmol/L Potassium 4.0 (3.6-5.2) mmol/L Chloride 110 H (100-108) mmol/L Carbon Dioxide 27 (21-32) mmol/L Anion Gap 14.0 (5.0-14.0) mmol/L BUN 24 H (7-18) mg/dL Creatinine 1.0 (0.8-1.3) mg/dL Est Cr Clr Drug Dosing 47.63 mL/min Estimated GFR (MDRD) > 60 (>60) Glucose 99 (74-106) mg/dL Calcium 9.0 (8.5-10.1) mg/dL Troponin I (0.000-0.056) ng/mL C-Reactive Protein 1.89 H (0.0-0.3) mg/dL NT-Pro-B Natriuret Pep 08563 H (5-450) pg/mL 11/21/20 Range/Units 11:14 WBC (4.5-11.0) K/uL RBC (4.30-5.90) M/uL Hgb (12.0-15.0) g/dL Hct (40.0-54.0) % MCV (80-98) fL MCH (27-31) pg MCHC (32-36) % Plt Count (150-400) K/uL Sodium (140-148) mmol/L Potassium (3.6-5.2) mmol/L Chloride (100-108) mmol/L Carbon Dioxide (21-32) mmol/L Anion Gap (5.0-14.0) mmol/L BUN (7-18) mg/dL Creatinine (0.8-1.3) mg/dL Est Cr Clr Drug Dosing mL/min Estimated GFR (MDRD) (>60) Glucose (74-106) mg/dL Calcium (8.5-10.1) mg/dL Troponin I 0.056 (0.000-0.056) ng/mL C-Reactive Protein (0.0-0.3) mg/dL NT-Pro-B Natriuret Pep (5-450) pg/mL Meds: Medications Generic Name Dose Route Start Last Admin Trade Name Freq PRN Reason Stop Dose Admin Sodium Chloride 10 ml 11/21/20 11:16 11/21/20 11:54 Sodium Chloride 0.9% 10 Ml Syringe FLUSH 10 ml ASDIRECTED PRN Administration Keep Vein Open Discontinued Medications Generic Name Dose Route Start Last Admin Trade Name Freq PRN Reason Stop Dose Admin Albuterol/Ipratropium 3 ml 11/21/20 10:24 11/21/20 10:40 Albuterol/Ipratropium 3.0-0.5 Mg/3 Ml Neb Soln NEB 11/21/20 10:25 3 ml ONETIME ONE Administration Aspirin 81 mg 11/21/20 11:58 11/21/20 12:12 Aspirin 81 Mg Tab.Chew PO 11/21/20 11:59 81 mg ONETIME ONE Administration Carvedilol 12.5 mg 11/21/20 11:56 11/21/20 12:12 Carvedilol 12.5 Mg Tab PO 11/21/20 11:57 12.5 mg ONETIME ONE Administration Clopidogrel Bisulfate 75 mg 11/21/20 11:57 11/21/20 12:13 Clopidogrel 75 Mg Tab PO 11/21/20 11:58 75 mg ONETIME ONE Administration Doxycycline Hyclate 100 mg 11/21/20 11:46 11/21/20 11:53 Doxycycline 100 Mg Cap PO 11/21/20 11:47 100 mg ONETIME ONE Administration Furosemide 40 mg 11/21/20 11:16 11/21/20 11:48 Furosemide 40 Mg/4 Ml Vial IVPUSH 11/21/20 11:17 40 mg ONETIME ONE Administration Isosorbide Mononitrate 30 mg 11/21/20 11:57 11/21/20 12:13 Isosorbide Mononitrate 30 Mg Tab.Er PO 11/21/20 11:58 30 mg ONETIME ONE Administration Lisinopril 5 mg 11/21/20 13:50 Lisinopril 5 Mg Tab PO 11/21/20 13:51 ONETIME ONE Nitroglycerin 1 gm 11/21/20 11:16 11/21/20 11:48 Nitroglycerin 2% Oint 1 Gm Ud Packet TOP 11/21/20 11:17 1 gm ONETIME ONE Administration - Radiology Interpretation Free Text/Narrative:: CXR- - Re-Assessments/Exams Free Text/Narrative Re-Assessment/Exam: 11/21/20 11:14 Minimal benefit with Duoneb Free Text/Narrative Re-Assessment/Exam: 11/21/20 13:39 discharge planning here to help with more in home services, will try to get him a sooner clinic follow up appt. Probably needs home oxygen with activity at least. Not able to offer this through the ER. Departure - Departure Time of Disposition: 14:10 Disposition: Home, Self-Care 01 Condition: Fair Clinical Impression: Tobacco abuse, Pulmonary infiltrate, Chronic anemia CHF (congestive heart failure) Qualifiers: Heart failure type: systolic Heart failure chronicity: acute on chronic Qualified Code(s): I50.23 - Acute on chronic systolic (congestive) heart failure COPD (chronic obstructive pulmonary disease) Qualifiers: COPD type: unspecified COPD Qualified Code(s): J44.9 - Chronic obstructive pulmonary disease, unspecified - Discharge Information *PRESCRIPTION DRUG MONITORING PROGRAM REVIEWED*: Not Applicable *COPY OF PRESCRIPTION DRUG MONITORING REPORT IN PATIENT [place]: Not Applicable Prescriptions: lisinopriL [Lisinopril] 5 mg PO DAILY #30 tablet Instructions: Heart Failure, Self Care, Health Risks of Smoking Referrals: Julian Reyes MD [Physician] - 11/23/20 11:00 am (Your appointment is at the [facility].) Forms: ED Department Discharge Additional Instructions: F/U in the [facility] per the appt we got for you. Start lisinopril 5 mg daily tomorrow. Alternate furosemide dose, tomorrow take 20 mg in the morning and then on Saturday take 40 mg in the morning. Continue this pattern for dosing unless your doctor changes it. Avoid salt and salty foods. Return as needed. Home care will be coming out starting on Saturday. Care Plan Goals: A referral was made to [facility] for home care services. [facility] will contact you this week to schedule your home visit. Sepsis Event Note (ED) - Evaluation Sepsis Screening Result: Possible Sepsis Risk - Focused Exam Vital Signs: Vital Signs Temp Pulse Pulse Resp BP BP Pulse Ox 11/21/20 12:13 149/95 H 11/21/20 12:12 88 149/95 H 11/21/20 12:08 89 26 H 149/95 H 93 L 11/21/20 10:08 36.4 C 98 22 H 155/85 H 96 11/21/20 10:00 103 H 155/85 H 97 - My Orders Last 24 Hours: My Active Orders 11/21/20 10:24 RT Aerosol Therapy [RC] ASDIRECTED 11/21/20 11:16 Sodium Chloride 0.9% [Saline Flush] 10 ml FLUSH ASDIRECTED PRN Saline Lock Insert [OM.PC] Routine - Assessment/Plan Last 24 Hours: My Active Orders 11/21/20 10:24 RT Aerosol Therapy [RC] ASDIRECTED 11/21/20 11:16 Sodium Chloride 0.9% [Saline Flush] 10 ml FLUSH ASDIRECTED PRN Saline Lock Insert [OM.PC] Routine
[2020-11-21] MEDS: Albuterol/Ipratropium 3.0-0.5 MG/3 ML Neb Soln NEB ONE (10:40)
--- NOTE | 2020-11-21 11:39 | CR ---
CHEST: 2 view CLINICAL HISTORY:Chronic cough COMPARISON:11/09/2020 FINDINGS: The heart is enlarged. Pulmonary vascularity is normal. There is patchy infiltrate in both lower lobes. This has increased since prior study. There are small bibasal effusions. There are atherosclerotic changes in the aorta. Lungs are hyperaerated. IMPRESSION: Bilateral lower lobe infiltrates superimposed over chronic lung changes Small bilateral pleural effusions Mild cardiomegaly
[2020-11-21] MEDS: Nitroglycerin 2% Oint 1 GM UD Packet TOP ONE (11:48)
[2020-11-21] MEDS: Furosemide 40 MG/4 ML VIAL IVPUSH ONE (11:48)
[2020-11-21] MEDS: Doxycycline 100 MG Cap PO ONE (11:53)
[2020-11-21] MEDS: Sodium Chloride 0.9% 10 ML Syringe FLUSH PRN (11:54)
[2020-11-21] MEDS: Carvedilol 12.5 MG Tab PO ONE (12:12)
[2020-11-21] MEDS: Aspirin 81 MG Tab.Chew PO ONE (12:12)
[2020-11-21] MEDS: Clopidogrel 75 MG Tab PO ONE (12:13)
[2020-11-21] MEDS: Isosorbide Mononitrate 30 MG Tab.ER PO ONE (12:13)
[2020-11-21] MEDS: Lisinopril 5 MG Tab PO ONE (14:05)
== END 2020-11-21 14:22 | disposition home or self-care (01) ==
LOC: JP.ED 09:36
DX: J44.9 Chronic obstructive pulmonary disease, unspecified (principal); I11.0 Hypertensive heart disease with heart failure; I50.23 Acute on chronic systolic (congestive) heart failure; R91.8 Other nonspecific abnormal finding of lung field; D64.9 Anemia, unspecified; I25.10 Atherosclerotic heart disease of native coronary artery without angina pectoris; F17.200 Nicotine dependence, unspecified, uncomplicated; I25.2 Old myocardial infarction; K21.9 Gastro-esophageal reflux disease without esophagitis; Z79.82 Long term (current) use of aspirin; Z79.899 Other long term (current) drug therapy
CPT/HCPCS: 36415; 71046; 80048; 83880; 84484; 85027; 86140; 94640; 96374; 99285; A9270; J1940; 99284; J7620-GY

== ENCOUNTER 2021-01-09 13:45 | Emergency (ER) | payer MEDICARE, BC ==
--- NOTE | 2021-01-09 14:53 | EDM.PDOC ---
ED HPI GENERAL MEDICAL PROBLEM - General Chief Complaint: Genitourinary Problem Stated Complaint: PAINFUL URINATION Time Seen by Provider: 01/09/21 14:51 Source of Information: Reports: Patient, Family, RN Notes Reviewed History Limitations: Reports: No Limitations - History of Present Illness INITIAL COMMENTS - FREE TEXT/NARRATIVE: 85-year-old gentleman presents emergency department today with complaint of catheter dysfunction, he states he may have accidentally had some trauma a couple days ago with this catheter he has had some blood in his urine but last night it quit functioning he had significant abdominal distention with pain. reported to the emergency department for evaluation today. Nursing staff did flush the catheter is now functioning bladder scan revealed 800 cc in the bladder. He states his abdomen feels significantly better. He is concerned about infection he does have what he describes as some painful urination, no fevers - Related Data Allergies Allergy/AdvReac Type Severity Reaction Status Date / Time No Known Allergies Allergy Verified 11/21/20 10:05 Home Meds: Home Meds Aspirin 81 mg PO DAILY 08/05/20 [History] Bimatoprost [Lumigan 0.01% Ophth Soln] 1 drop EYEBOTH DAILY 08/05/20 [History] Capsaicin [Zostrix 0.025% Crm] 1 dose TOP ASDIRECTED 08/05/20 [History] Furosemide [Lasix] 20 mg PO DAILY 08/05/20 [History] Hydrocodone/Acetaminophen [Hydrocodon-Acetaminophen 5-325] 1 tab PO ASDIRECTED PRN 08/05/20 [History] Nitroglycerin 0.4 mg SL ASDIRECTED 08/05/20 [History] Omeprazole 40 mg PO DAILY 08/05/20 [History] Ondansetron [Zofran ODT] 4 mg PO ASDIRECTED PRN 08/05/20 [History] Sennosides/Docusate Sodium [Senna-Docusate Sodium Tablet] 2 tab PO DAILY 08/05 [History] Timolol Maleate/PF [Timolol Maleate 0.5% Eye Drop] 1 dose EYEBOTH BEDTIME 08/05/20 [History] Clopidogrel [Plavix] 75 mg PO DAILY #30 tablet 08/08/20 [Rx] Isosorbide Mononitrate [Isosorbide Mononitrate ER] 30 mg PO DAILY #30 08/08/20 [Rx] Mirtazapine 15 mg PO BEDTIME #30 08/08/20 [Rx] Tamsulosin [Flomax] 0.4 mg PO DAILY #30 08/08/20 [Rx] atorvaSTATin Calcium [Atorvastatin Calcium] 80 mg PO BEDTIME #30 08/08/20 [Rx] carvediloL [Coreg] 12.5 mg PO BIDAC #60 tablet 08/08/20 [Rx] lisinopriL [Lisinopril] 5 mg PO DAILY #30 tablet 11/21/20 [Rx] Past Medical History HEENT History: Reports: Impaired Vision Cardiovascular History: Reports: CAD, Heart Failure, Hypertension, [place] Gastrointestinal History: Reports: GERD Genitourinary History: Reports: BPH, Other (See Below) Other Genitourinary History: Chronic sommer cath since May 2020. Musculoskeletal History: Reports: Fracture, Other (See Below) Other Musculoskeletal History: shoulder dislocation, fractured ribs. 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 - Infectious Disease History Infectious Disease History: Reports: Influenza, Measles, Mumps, Rubella - Past Surgical History HEENT Surgical History: Reports: Tonsillectomy GI Surgical History: Reports: Hernia Repair/Other Social & Family History - Tobacco Use Tobacco Use Status *Q: Light Tobacco User Years of Tobacco use: 75 Packs/Tins Daily: 0.5 - Caffeine Use Caffeine Use: Reports: Coffee Other Caffeine Use: 3 cpd - Recreational Drug Use Recreational Drug Use: No ED ROS GENERAL - Review of Systems Review Of Systems: See Below Constitutional: Denies: Fever HEENT: Reports: No Symptoms Respiratory: Reports: No Symptoms Cardiovascular: Reports: No Symptoms GI/Abdominal: Reports: Abdominal Pain : Reports: Hematuria, Urinary Retention ED EXAM, RENAL/ - Physical Exam Exam: See Below Exam Limited By: No Limitations General Appearance: Alert, WD/WN, No Apparent Distress Respiratory/Chest: No Respiratory Distress, Lungs Clear, Normal Breath Sounds, No Accessory Muscle Use, Chest Non-Tender Cardiovascular: Regular Rate, Rhythm, No Murmur GI/Abdominal: Soft, Non-Tender Extremities: No Pedal Edema Course - Vital Signs Last Recorded V/S: Last Vital Signs Temp 98.1 F 01/09/21 14:22 Pulse 51 L 01/09/21 14:22 Resp 15 01/09/21 14:22 BP 168/92 H 01/09/21 14:22 Pulse Ox 97 01/09/21 14:22 - Orders/Labs/Meds Orders: Active Orders 24 hr Category Date Time Status CULTURE URINE [RM] Urgent Lab 01/09/21 15:20 Ordered Labs: Laboratory Tests 01/09/21 Range/Units 14:36 Urine Color Yellow (YELLOW) Urine Appearance Cloudy A (CLEAR) Urine pH 7.0 (5.0-8.0) Ur Specific [place] 1.020 (1.008-1.030) Urine Protein Trace H (NEGATIVE) mg/dL Urine Glucose (UA) Negative (NEGATIVE) mg/dL Urine Ketones Negative (NEGATIVE) mg/dL Urine Occult Blood Large H (NEGATIVE) Urine Nitrite Positive H (NEGATIVE) Urine Bilirubin Negative (NEGATIVE) Urine Urobilinogen 0.2 (0.2-1.0) EU/dL Ur Leukocyte Esterase Large H (NEGATIVE) Urine RBC 10-20 H (0-5) Urine WBC Semi-packed H (0-5) Ur Epithelial Cells Not seen Amorphous Sediment Occasional Urine Bacteria Few Urine Mucus Not seen Departure - Departure Time of Disposition: 15:23 Disposition: Home, Self-Care 01 Condition: Fair Clinical Impression: UTI (urinary tract infection) Qualifiers: Urinary tract infection type: acute cystitis Hematuria presence: without hematuria Qualified Code(s): N30.00 - Acute cystitis without hematuria - Discharge Information Instructions: Urinary Tract Infection, Adult, [id number] Referrals: PCP,None [Primary Care Provider] - Forms: ED Department Discharge Additional Instructions: Take full course of antibiotics, please followup with your primary care provider in 3-5 days if not better, please call return to the emergency department with worsening of symptoms. Sepsis Event Note (ED) - Evaluation Sepsis Screening Result: No Definite Risk - Focused Exam Vital Signs: Vital Signs Temp Pulse Resp BP Pulse Ox 01/09/21 14:22 98.1 F 51 L 15 168/92 H 97 01/09/21 14:18 98.1 F 51 L 15 168/92 H 97 - My Orders Last 24 Hours: My Active Orders 01/09/21 15:20 CULTURE URINE [RM] Urgent - Assessment/Plan Last 24 Hours: My Active Orders 01/09/21 15:20 CULTURE URINE [RM] Urgent Plan: Assessment Acuity = acute Site and laterality = complicated urinary tract infection Etiology = bacterial cause Manifestations = dysuria Location of injury = Home Lab values = urinalysis reveals packed WBCs consistent with pyuria 10-20 RBCs consistent with hematuria and positive nitrates cultures pending Plan Like to treat empirically Bactrim DS 1 tab p.o. twice daily x14 days follow-up primary care 5 to 7 days if no improvement This note was dictated using [employer] voice recognition software please call with any questions on syntax or grammar.
== END 2021-01-09 15:46 | disposition home or self-care (01) ==
LOC: JP.ED 13:45
DX: N30.00 Acute cystitis without hematuria (principal); I25.10 Atherosclerotic heart disease of native coronary artery without angina pectoris; I11.0 Hypertensive heart disease with heart failure; I50.9 Heart failure, unspecified; I25.2 Old myocardial infarction; K21.9 Gastro-esophageal reflux disease without esophagitis; N40.0 Benign prostatic hyperplasia without lower urinary tract symptoms; Z72.0 Tobacco use; Z79.02 Long term (current) use of antithrombotics/antiplatelets; Z79.82 Long term (current) use of aspirin; Z79.899 Other long term (current) drug therapy
CPT/HCPCS: 81001; 87086; 87088; 87186; 99283